=== PATIENT | female | born 1980 | race Two or more races ===

== ENCOUNTER 2020-05-26 07:30 | Outpatient (REF) | payer OTHER, SELFPAY | END 2020-05-26 07:31 | disposition home or self-care (01) | LOC: HO.MDS 07:30 | PROVIDERS: PCP Internal Medicine; Visit Provider Internal Medicine Pulmonary Disease | DX: J45.50 Severe persistent asthma, uncomplicated (principal) | CPT/HCPCS: 96372; J2357 ==

== ENCOUNTER 2020-06-19 10:03 | Emergency (ER) | payer OTHER, SELFPAY ==
[2020-06-19 11:29] VITALS: BP 111/70; PULSE 78; RESP 18; TEMP 37; O2SAT 100; BMI 30.8
--- NOTE | 2020-06-19 12:21 | XR_ITS ---
EXAMINATION: PORTABLE CHEST 1 VIEW CLINICAL INFORMATION: sob, cough . COMPARISON: 04/28/2020. TECHNIQUE: Portable frontal view of the chest was obtained. FINDINGS: The lungs are hypoexpanded. No focal infiltrate, effusion, edema, or pneumothorax. Cardiac and mediastinal silhouettes are within normal limits for technique. No acute bony abnormality seen. XR/XR chest 1V IMPRESSION: No evidence of acute disease.
--- NOTE | 2020-06-19 12:41 | ED_ITS ---
HPI - URI/Sore Throat General Chief Complaint: Upper Respiratory Symptoms Stated Complaint: headache, body ache Time Seen by Provider: 06/19/20 12:05 Source: patient and asl interpreter Mode of arrival: ambulatory Limitations: language barrier History of Present Illness HPI Narrative: 40 yo female with past medical history Of asthma here with cough, chest tightness, body aches, chills, headache since yesterday. No shortness of breath or fever. Denies sick contacts or recent travel. MD elicited complaint: cough Pertinent past history: asthma Onset (ago): day(s) (<24 hrs) Consistency: intermittent Severity: mild Able to tolerate fluids by mouth: Yes Exacerbating factors: nothing Associated symptoms: denies other symptoms Treatments prior to arrival: none Related Data Allergies Allergy/AdvReac Type Severity Reaction Status Date / Time tramadol [TRAMADOL] Allergy Mild RASH, Unverified 05/26/20 07:40 Vomitting gabapentin [GABAPENTIN] Allergy Unknown UNKNOWN, Unverified 04/15/20 17:38 rash, rash, vomiting Sulfa (Sulfonamide Allergy Unknown RASH, hives Unverified 04/15/20 17:38 Antibiotics) [SULFA (SULFONAMIDE ANTIBIOTICS)] diphtheria,pertussis AdvReac Unknown BODYACHES, Unverified 05/26/20 07:40 (acellular),te NAUSEA [TDAP] morphine [MORPHINE] AdvReac Unknown NAUSEA & Unverified 05/26/20 07:40 VOMITING, N/V, vomiting Tetanus Toxoid Adsorbed Allergy Unknown Unclear Uncoded 05/26/20 07:40 but possibly significant Review of Systems Review of Systems: Yes all other systems are reviewed and are negative Constitutional: Constitutional: Reports no additional constitutional complaints, Reports body ache(s), Reports chills, Denies fever(s), Reports headache(s) and Denies weakness Eyes: Eyes: Reports no additional eye complaints and Denies change in vision ENT: Reports system reviewed and no additional complaints, except as documented, Denies dizziness, Reports headache(s), Denies nasal congestion, Denies nasal discharge and Denies neck pain Cardiovascular: Cardiovascular: Reports no additional cardiovascular complaints, Denies chest pain, Denies leg edema and Denies dyspnea Respiratory: Respiratory: Reports no additional respiratory complaints, Reports cough and Denies dyspnea Gastrointestinal: Gastrointestinal: Reports no additional gastrointestinal complaints, Denies abdominal pain, Denies diarrhea, Denies nausea and Denies vomiting Genitourinary: Genitourinary: Reports no additional female genitourinary complaints and Denies urinary incontinence Musculoskeletal: Musculoskeletal: Reports no additional musculoskeletal complaints, Denies back pain, Denies arthralgias, Denies joint swelling, Denies neck pain, Denies numbness and Denies tingling Integumentary/Breasts: Skin/Breast: Reports system reviewed and no additional complaints, except as docu and Denies rash Neurologic: Denies Abnormal speech present, Denies dizziness, Reports headache(s), Denies numbness, Denies tingling and Denies weakness PMFSH Past Medical History Attestation statement: The following information was validated with the patient. Source: obtained from family and nursing notes reviewed Medical History Asthma Environmental allergies Social History Social History Advance Directives: No Advance Directives Information Provided: Yes Physical Exam Vital Signs: Vital Signs: Last Vital Signs Temp 98.6 F 06/19/20 11:29 Pulse 78 06/19/20 11:29 Resp 18 06/19/20 11:29 BP 111/70 06/19/20 11:29 Pulse Ox 100 06/19/20 11:29 Body Mass Index 30.8 Const: General: cooperative, healthy appearing, comfortable and no acute distress Orientation/consciousness: patient oriented x3 Limitations: no limitations HENMT: Head: Yes normal to inspection Ears: hearing grossly normal bilaterally General nose exam: Normal external nose present Face and sinus: Yes normal facial exam Mouth: Normal oral and palatal mucosa present Throat: Yes posterior oropharynx normal Eyes: General: appearance normal, both eyes and all related structures Pupils: Equal, round and reactive pupils present Neck: Neck: Yes normal visual inspection Chest: Chest palpation & inspection: normal inspection of the chest Resp: Effort & Inspection: normal respiratory effort Auscultation: clear to auscultation bilaterally Cardio: Rate: regular rate Rhythm: regular rhythm Peripheral pulses: Peripheral pulses 2+ throughout GI: Inspection: Yes normal to inspection Palpation (GI): Soft to palpation and nontender Auscultation: normal bowel sounds Back/Spine/Pelvis: Thoracic/Lumbar Spine: thoracic and lumbar spine normal to inspection Skin: General skin exam: no rashes or lesions noted Neuro: General: patient oriented x3, no focal motor deficits and normal sensation to monofilament Cranial nerves: Yes Equal, round and reactive pupils present Cognition (Neuro): normal cognition Speech: No Abnormal speech present Gait exam (Neuro): Normal gait present Motor exam (neuro): 5/5 motor strength present throughout Extrem: General: Yes normal to inspection Course Course Course Narrative: Symptoms consistent with viral syndrome. COVID-19 testing was sent. Patient is well appearing. Stable vital signs. Chest x-ray unremarkable. Speaking full sentences with clear lung sounds. Reviewed worris ome signs symptoms of when to return to the emergency department. Comfortable discharge home. MDM - URI/Sore Throat Imaging Data Chest x-ray: Attestation: I personally reviewed and interpreted this imaging study as follows: Radiologist's impression: Unremarkable Discharge Plan Discharge Clinical Impression: Viral infection Patient Disposition: Home, Self-Care Instructions: Viral Syndrome (ED) Additional Instructions: We have tested you today for COVID 19. Test results take 1-2 days and we will call you with the results negative or positive. Take tylenol or motrin if able as needed for pain or fever. Stay well hydrated with fluids like water, gatorade and/or powerade. Wash hands at home. If living with others try to self isolate if possible. If unable wear a mask around others in your home and wash hands frequently. If COVID test is positive you will need to self isolate for a total of 14 days from when your symptoms started. You may return to work sooner if testing is negative and all symptoms resolved >72 hours. You should return to the emergency department for severe shortness of breath, chest pain or fever which does not respond to both tylenol and motrin at home. Referrals: Marleny Li MD [Primary Care Provider] - 2 days Interventions: ED Discharge Assessment Last Done: 06/19/20 13:57 Discharge Date/Time: 06/19/20 13:58 Print Language: Urdu
[2020-06-19] MEDS: Acetaminophen 325 MG TABLET 975 MG PO (12:55)
== END 2020-06-19 13:58 | disposition home or self-care (01) ==
PROVIDERS: Nurse Practitioner Family; Emergency Provider Emergency Medicine; PCP Internal Medicine
DX: B34.9 Viral infection, unspecified (principal); R51.9 Headache, unspecified; Z79.899 Other long term (current) drug therapy; Z20.828 Contact with and (suspected) exposure to other viral communicable diseases
CPT/HCPCS: 71045; 99283; U0003

== ENCOUNTER 2020-06-27 17:54 | Emergency (ER) | payer OTHER, SELFPAY ==
[2020-06-27 18:30] VITALS: BP 121/74; PULSE 82; RESP 16; TEMP 36.7; O2SAT 98; BMI 30.7
--- NOTE | 2020-06-27 18:59 | ED_ITS ---
HPI - Neck Pain/Injury General Chief Complaint: Neck Pain/Injury Stated Complaint: NECK PAIN Time Seen by Provider: 06/27/20 18:42 Source: patient Mode of arrival: ambulatory History of Present Illness HPI Narrative: 40-year-old female with a past medical history asthma, fibromyalgia, recently COVID-19 negative, presented to ED complaining of full body myalgias, and neck pain radiating to head x1 week. Admits was recently seen in the ED for similar symptoms, suspected COVID-19. Denies injury/trauma or falls, vision changes at present, numbness/tingling, nausea/vomiting, fever/chills, cough. Has been taking Tylenol without relief MD complaint: neck pain Related Data Previous Rx's Medication Instructions Recorded acetaminophen 650 mg 650 mg PO Q8H PRN #40 tab 06/22/20 tablet,extended release cyclobenzaprine 5 mg PO Q8H PRN 5 Days #14 tab 06/27/20 lidocaine [Lidoderm] 1 patch TOPICAL DAILY PRN #30 ea 06/27/20 MDD remove after 12 hours naproxen 500 mg PO BID PRN 10 Days #20 tab 06/27/20 Allergies Allergy/AdvReac Type Severity Reaction Status Date / Time tramadol [TRAMADOL] Allergy Mild RASH, Unverified 05/26/20 07:40 Vomitting gabapentin [GABAPENTIN] Allergy Unknown UNKNOWN, Unverified 04/15/20 17:38 rash, rash, vomiting Sulfa (Sulfonamide Allergy Unknown RASH, hives Unverified 04/15/20 17:38 Antibiotics) [SULFA (SULFONAMIDE ANTIBIOTICS)] diphtheria,pertussis AdvReac Unknown BODYACHES, Unverified 05/26/20 07:40 (acellular),te NAUSEA [TDAP] morphine [MORPHINE] AdvReac Unknown NAUSEA & Unverified 05/26/20 07:40 VOMITING, N/V, vomiting Tetanus Toxoid Adsorbed Allergy Unknown Unclear Uncoded 05/26/20 07:40 but possibly significant Review of Systems Review of Systems: Constitutional: No Weight loss, No Fever, No Chills ENT/Mouth: + Ear Pain, No Nasal Congestion, No sore throat, No Rhinorrhea, No Swallowing Difficulty Cardiovascular: No Chest Pain, No SOB Respiratory: No Cough Gastrointestinal: No Nausea, No Vomiting, No Diarrhea, No Constipation, No Abdominal pain Musculoskeletal: + neck pain, +Myalgias, No Joint Swelling Skin: No Skin Lesions, No rash Neuro: No Weakness, No Numbness, No Paresthesias Yes all other systems are reviewed and are negative [facility] Past Medical History Attestation statement: The following information was validated with the patient. Medical History (Updated 06/27/20 @ 19:02 by CHARLINE Vyas) Asthma Environmental allergies Fibromyalgia Surgical History (Updated 06/27/20 @ 18:44 by Twyla Cortez) H/O: hysterectomy Hx of cholecystectomy Social History Social History Smoking Status: Never smoker Use of substances other than those prescribed or required for medical reasons: No Advance Directives: No Advance Directives Information Provided: No Physical Exam Vital Signs: Vital Signs: Last Vital Signs Temp 98.0 F 06/27/20 18:30 Pulse 82 06/27/20 18:30 Resp 16 06/27/20 18:30 BP 121/74 06/27/20 18:30 Pulse Ox 98 06/27/20 18:30 Body Mass Index 30.7 Const: General: cooperative and healthy appearing Orientation/consciousness: patient oriented x3 Limitations: no limitations HENMT: Head: Yes normal to inspection Ears: hearing grossly normal bilaterally and TM's normal bilaterally General nose exam: Normal external nose present Face and sinus: Yes normal facial exam Mouth: Normal oral and palatal mucosa present Throat: Yes posterior oropharynx normal Eyes: General: appearance normal, both eyes and all related structures EOM: EOMs intact bilaterally Neck: Other: No midline cervical spinous tenderness. + bilateral upper paraspinal MSK tenderness and right trapezius muscle ttp Neck: Yes normal visual inspection, Yes full ROM, Yes no meningeal signs and Yes trachea midline Chest: Chest palpation & inspection: normal inspection of the chest Resp: Effort & Inspection: normal respiratory effort Cardio: Rate: regular rate Skin: Rashes: no rashes Wounds: no wounds Neuro: General: patient oriented x3 and no meningeal signs Gait exam (Neuro): Normal gait present Extrem: General: Yes normal to inspection MDM - Neck Pain/Injury MDM Narrative Medical decision making narrative: On exam VSS, NAD/well-appearing, no midline spinous tenderness. Concern for viral syndrome/COVID-19 vs MSK pain. Low concern for fracture or dislocation Discharge Plan Discharge Clinical Impression: Strain of neck, Myalgia Patient Disposition: Home, Self-Care Instructions: Musculoskeletal Pain (ED) Additional Instructions: Your pain is likely musculoskeletal Flexeril is a muscle relaxer, take at night as it makes you drowsy, do not drive, drink alcohol, or operate machinery while taking it Naproxen as an anti-inflammatory / pain medication, take with food Lidoderm patches are numbing patches, apply to painful area In addition take Tylenol at home If symptoms persist or worsen, pain becomes unbearable, you developed urinary retention or incontinence, or weakness return to the ED Based on your symptoms and history we have sent a COVID-19. Although your RESULT IS PENDING at this time. RESULTS should return within 72 hours. At this time you will be contacted with either NEGATIVE OR POSITIVE results. -Please wait until we contact you for your results. At this time you will be okay for discharge. Please plan for self quarantine for up to 14 days. Do not expose yourself to others. You may not go to work. If testing does come back negative you may return to activities as long as you are no longer having any symptoms for at least 3 days. Please continue to follow cold instructions and wash your hands frequently. You may take Tylenol as directed on the bottle for pain or fever. Patient seen in the emergency department on 01/23/2020 and should be excused from work until negative test results AND until 72 hours without any symptoms AND at least 10 days have passed since symptoms first appeared or since last exposure to COVID-19 positive patient CDC Guidelines for home isolation: - Stay away from others - WEAR A MASK if you are sick AND STAY HOME - Cover your mouth and nose with a tissue when you cough or sneeze. Dispose of tissues in a lined trash can and wash your hands immediately with soap and water for at least 20 seconds. If soap and water are not available, clean hands with alcohol-based hand management internship that contains at least 60% alcohol. - Clean your hands often with soap and water for at least 20 seconds - Avoid touching your eyes, nose and mouth with unwashed hands - Do not share dishes, drinking glasses, cups, eating utensils, towels, or bedding with other people in your home. After using these items, wash them thoroughly with soap and water or put in the cancer program coordinator. - Clean high-touch surfaces in your isolation area ( sick room and bathroom) every day; let a caregiver clean and disinfect high-touch surfaces in other areas of the home. Clean the area or item with soap and water or another detergent if it is dirty. Then, use a household disinfectant. - Limit contact with pets and animals: If you must care for a pet, wash your hands before and after interacting with them) Prescriptions: New lidocaine [Lidoderm] 5 % adhesive patch,medicated 1 patch topical DAILY MDD remove after 12 hours PRN (Reason: pain) Qty: 30 RF: 0 naproxen 500 mg tablet 500 mg PO BID PRN (Reason: pain) 10 Days Qty: 20 RF: 0 cyclobenzaprine 5 mg tablet 5 mg PO Q8H PRN (Reason: pain (scale score 7-10)) 5 Days Qty: 14 RF: 0 No Action acetaminophen [Arthritis Pain Relief (acetam)] 650 mg tablet extended release 650 mg PO Q8H PRN (Reason: pain) Qty: 40 RF: 0 Referrals: Marleny Li MD [Primary Care Provider] - 3 days Stand Alone Forms: Work/School Release
== END 2020-06-27 19:30 | disposition home or self-care (01) ==
PROVIDERS: Physician Assistant; Emergency Provider Emergency Medicine; PCP Internal Medicine
DX: M54.2 Cervicalgia (principal); M79.10 Myalgia, unspecified site; Z79.899 Other long term (current) drug therapy; Z20.828 Contact with and (suspected) exposure to other viral communicable diseases
CPT/HCPCS: 99283; U0003

== ENCOUNTER 2020-07-05 | Outpatient (REF) | payer OTHER, SELFPAY | END 2020-07-05 00:01 | disposition home or self-care (01) | LOC: HO.MDS | PROVIDERS: PCP Internal Medicine; Visit Provider Internal Medicine Pulmonary Disease | DX: J45.50 Severe persistent asthma, uncomplicated (principal) | CPT/HCPCS: 96372; J2357 ==

== ENCOUNTER → 2020-07-20 10:11 | Outpatient (REF) | payer OTHER, SELFPAY ==
--- NOTE | 2020-07-20 10:30 | CA_ITS ---
Transthoracic Echocardiogram Patient (Last, First, Middle): Lien Del Angel, Gender: Female Date of : 1980 Age: 40 Procedure Date: 07/20/2020 Procedure Type: Transthoracic Echocardiogram Location: OP Height: 165.1 cm Weight: 82.56 kg BSA: 1.90 m2 Heart Rate: bpm BP: 100 / 63 mmHg Head Waiter: ROQUE Referring MD: Venancio Patel DO Chief Relay Tester: Ji Jaramillo MD Symptoms: J45.30 MILD PER ASTHMA PULMONARY PRESSURE SOB CHEST PAIN Study Quality: Fair ECG Rhythm: Sinus Conclusions: - Essentially normal study Findings Left Ventricle Normal left ventricular size, thickness, and systolic function. The visually estimated ejection fraction is between 60-65%. Diastolic function is normal for age. Right Ventricle Normal right ventricular cavity size and systolic function. Atria Both atria are likely dilated. Interatrial shunt cannot be excluded. Aortic Valve The aortic valve structure and function is likely normal. There is no aortic valve stenosis. There is no aortic valve regurgitation. Mitral Valve Normal mitral valve structure and function. There is trace mitral valve regurgitation. There is no mitral valve stenosis. Pulmonic Valve The pulmonic valve was not well visualized. Tricuspid Valve Likely normal tricuspid valve structure and function. There is trace tricuspid valve regurgitation. The right ventricular systolic pressure is normal. The right ventricular systolic pressure is 23 mmHg. Normal right atrial pressure. There is no evidence of pulmonary hypertension. Great Vessels All visible segments of the aorta are normal in size. Venous The inferior vena cava is normal in size and collapses greater than 50% with inspiration. Pericardium/Pleural There is no evidence of pericardial effusion. Prior Study Comparison No significant change compared to prior study dated: 06/26/2018. Measurements M-Mode Liner Measurements Normals - Women/Men LVIDd: 3.81 3.9-5.3/4.2-5.9 cm LVIDd Index: 2.01 1.9-3.2 cm/m2 LVIDs: 2.54 2.0-3.8 cm M-Mode Volumes LV EDV: 62.30 LV ESV: 23.20 2D Linear Measurements IVSd: 1.03 0.6-0.9/0.6-1.0 cm LVIDd: 4.04 3.9-5.3/4.2-5.9 cm LVIDd Index: 2.13 2.4-3.2/2.2-3.1 cm/m2 LVIDs: 2.77 2.0-3.6 cm LVPWd: 1.07 0.7-1.1 cm Ao Root: 2.40 2.1-3.5 cm LA Diam: 2.90 2.7-3.8/3.0-4.0 cm LAIDs Index: 1.53 1.5-2.3 cm/m2 LV Mass: 172.16 67-162/88-224 g LV Mass Index: 90.61 43-95/49-115 g/m2 LVOT Diam: 2.10 3.0+(-)1.3 cm 2D Systolic Function EF 4C: 50.40 >55% EF 2C: 63.00 >55% EF BiP: 58.00 >55% M-Mode Systolic Function FS: 33.30 27-47/25-43% LVEF: 62.80 >55% Mitral Valve MV Pk E: 0.71 MV PK A: 0.71 MV Decel Time: 232.00 E/A: 1.00 E'Lateral: 14.20 E'Medial: 6.87 E/E' Med: 10.30 E/E' Lat: 5.00 PHT: 68.00 MVA PHT: 3.24 Decel [place]: 3.05 Aortic Valve AoV Pk [place]: 1.41 AoV Pk Grad: 8.00 LVOT LVOT Pk [place]: 1.00 LVOT Mn [place]: 0.69 LVOT VTI: 0.20 LVOT Pk Grad: 4.00 LVOT Mn Grad: 2.00 LVOT Diam: 2.10 LVOT Area: 3.46 Diastolic Function MV Pk E: 0.71 MV Pk A: 0.71 E/A: 1.00 E'Medial: 6.87 E/E' Med: 10.30 E' Laterial: 14.20 E/E' Lat: 5.00 Tricuspid Valve TR Pk [place]: 2.27 TR Pk Grad: 20.68 RA Press: 3.00 RVSP: 23.00 Great Vessels Aorta Ao Root-2D: 2.40 2.0-3.7 cm Ao Asc: 3.00 2.1-3.4 cm Updated in Other Vendor System with Status of Final Ji Jaramillo MD electronically signed on 07/21/2020 1:35:45 PM with status of Final
== END ==
LOC: HO.CARD 10:11
PROVIDERS: PCP Internal Medicine; Visit Provider Hospitalist
DX: J45.30 Mild persistent asthma, uncomplicated (principal)
CPT/HCPCS: 93306

== ENCOUNTER 2020-07-29 16:15 | Outpatient (REF) | payer OTHER, SELFPAY | END 2020-07-29 16:16 | disposition home or self-care (01) | LOC: HO.LAB 16:15 | PROVIDERS: Visit Provider Internal Medicine | DX: Z20.828 Contact with and (suspected) exposure to other viral communicable diseases (principal) | CPT/HCPCS: C9803; U0003 ==

== ENCOUNTER 2020-08-23 07:18 | Outpatient (REF) | payer OTHER, SELFPAY | END 2020-08-23 07:19 | disposition home or self-care (01) | LOC: HO.MDS 07:18 | PROVIDERS: PCP Internal Medicine; Visit Provider Internal Medicine Pulmonary Disease | DX: J45.50 Severe persistent asthma, uncomplicated (principal) | CPT/HCPCS: 96372; J2357 ==

== ENCOUNTER 2020-09-20 07:16 | Outpatient (REF) | payer OTHER, SELFPAY | END 2020-09-20 07:17 | disposition home or self-care (01) | LOC: HO.MDS 07:16 | PROVIDERS: PCP Internal Medicine; Visit Provider Internal Medicine Pulmonary Disease | DX: J45.50 Severe persistent asthma, uncomplicated (principal) | CPT/HCPCS: 96372; J2357 ==

== ENCOUNTER 2020-10-18 07:17 | Outpatient (REF) | payer OTHER, SELFPAY | END 2020-10-18 07:18 | disposition home or self-care (01) | LOC: HO.MDS 07:17 | PROVIDERS: PCP Internal Medicine; Visit Provider Internal Medicine Pulmonary Disease | DX: J45.50 Severe persistent asthma, uncomplicated (principal) | CPT/HCPCS: 96372; J2357 ==

== ENCOUNTER 2020-11-16 07:09 | Outpatient (REF) | payer OTHER, SELFPAY | END 2020-11-16 07:10 | disposition home or self-care (01) | LOC: HO.MDS 07:09 | PROVIDERS: PCP Internal Medicine; Visit Provider Internal Medicine Pulmonary Disease | DX: J45.50 Severe persistent asthma, uncomplicated (principal) | CPT/HCPCS: 96372; J2357 ==

== ENCOUNTER 2020-11-24 10:30 | Outpatient (REF) | payer OTHER, SELFPAY ==
[2020-11-24 13:04] LABS: MANUAL DIFF FLAG NO
[2020-11-24 13:10] LABS: Basophils Absolute Auto 0.1 X10*3/uL (0.0-0.2); Basophils Percent Auto 0.8 % (0-2); Eosinophils Absolute Auto 0.1 X10*3/uL (0.0-0.4); Eosinophils Percent Auto 1.1 % (0-4); Hematocrit 45.7 % (37-47); Hemoglobin 14.8 g/dl (12.0-16.0); Imm Gran Abs Auto 0.01 X10*3/uL (0.00-0.03); Imm Gran Pct Auto 0.2 % (0.0-0.4); Lymphocytes Absolute Auto 2.1 X10*3/uL (1.2-4.9); Lymphocytes Percent Auto 31.9 % (20-40); Mean Corpuscular HGB Conc 32.4 g/dl (31.0-35.0); Mean Corpuscular Hemoglobin 29.5 pg (27.0-33.0); Mean Platelet Volume 10.3 fL (9.4-12.3); Monocytes Absolute Auto 0.5 X10*3/uL (0.1-1.2); Monocytes Percent Auto 7.3 % (2-11); Neutrophils Absolute Auto 3.9 X10*3/uL (2.0-8.3); Neutrophils Percent Auto 58.7 % (45-73); Platelet Count 287 X10*3/uL (160-400); Red Blood Count 5.02 X10*6/uL (4.20-5.50); Red Cell Distribution Width 13.3 % (11.0-16.0); White Blood Count 6.6 X10*3/uL (4.8-10.8)
== END 2020-11-24 10:31 | disposition home or self-care (01) ==
LOC: HO.LAB 10:30
PROVIDERS: PCP Internal Medicine; Visit Provider Internal Medicine Pulmonary Disease
DX: J45.50 Severe persistent asthma, uncomplicated (principal); R06.00 Dyspnea, unspecified; Z91.09 Other allergy status, other than to drugs and biological substances; Z79.899 Other long term (current) drug therapy
CPT/HCPCS: 36415; 82785; 85025; 86003; 99212

== ENCOUNTER 2020-12-13 07:25 | Outpatient (REF) | payer OTHER, SELFPAY | END 2020-12-13 07:26 | disposition home or self-care (01) | LOC: HO.MDS 07:25 | PROVIDERS: PCP Internal Medicine; Visit Provider Internal Medicine Pulmonary Disease | DX: J45.50 Severe persistent asthma, uncomplicated (principal) | CPT/HCPCS: 96372; J2357 ==

== ENCOUNTER 2020-12-21 11:33 | Outpatient (REF) | payer OTHER, SELFPAY ==
[2020-12-21 14:28] LABS: Alanine Aminotransferase 56 U/L (0-31); Anion Gap 15 (12-20); Aspartate Amino Transferase 36 U/L (5-31); Blood Urea Nitrogen 9 mg/dL (9-16); Calcium 9.3 mg/dL (8.4-10.2); Carbon Dioxide 23 mmol/L (22-29); Chloride 103 mmol/L (96-108); Cholesterol 197 mg/dL; Estimated Glomerular Filt Rate > 60; Glucose Fasting 87 mg/dL (60-99); HDL Cholesterol 39 mg/dL; LDL Cholesterol Calculated 131 mg/dl; Potassium 4.2 mmol/L (3.3-5.1); Sodium 137 mmol/L (135-145); Triglycerides 137 mg/dL
[2020-12-22 11:55] LABS: Immunoglobulin E 248 kU/L (<OR=114)
== END 2020-12-21 11:34 | disposition home or self-care (01) ==
LOC: HO.HMGCLDS 11:33
PROVIDERS: Internal Medicine Pulmonary Disease; PCP Internal Medicine; Visit Provider Internal Medicine
DX: Z00.01 Encounter for general adult medical examination with abnormal findings (principal); E66.9 Obesity, unspecified; I10 Essential (primary) hypertension; J45.50 Severe persistent asthma, uncomplicated
CPT/HCPCS: 36415; 80048; 80061; 82785; 84450; 84460

== ENCOUNTER 2020-12-29 07:19 | Outpatient (REF) | payer OTHER, SELFPAY | END 2020-12-29 07:20 | disposition home or self-care (01) | LOC: HO.MDS 07:19 | PROVIDERS: PCP Internal Medicine; Visit Provider Internal Medicine Pulmonary Disease | DX: J45.50 Severe persistent asthma, uncomplicated (principal) | CPT/HCPCS: 96372; J2357 ==

== ENCOUNTER 2021-01-12 07:14 | Outpatient (REF) | payer OTHER, SELFPAY | END 2021-01-12 07:15 | disposition home or self-care (01) | LOC: HO.MDS 07:14 | PROVIDERS: PCP Internal Medicine; Visit Provider Internal Medicine Pulmonary Disease | DX: J45.50 Severe persistent asthma, uncomplicated (principal) | CPT/HCPCS: 96372; J2357 ==

== ENCOUNTER → 2021-01-19 12:43 | Outpatient (REF) | payer OTHER, SELFPAY ==
--- NOTE | 2021-01-19 12:45 | CA_ITS ---
Transthoracic Echocardiogram Patient (Last, First, Middle): Lien Del Angel, Gender: Female Date of : 1980 Age: 40 Procedure Date: 01/19/2021 Procedure Type: Transthoracic Echocardiogram Location: OP Height: 165.1 cm Weight: 85.73 kg BSA: 1.93 m2 Heart Rate: bpm BP: 118 / 70 mmHg Pediatric Critical Care Nurse: YR/CP Referring MD: Steve Chan MD [place] Supervisor: Ji Jaramillo MD Symptoms: R06.00 - Dyspnea, unspecified Study Quality: Good ECG Rhythm: Sinus Conclusions: - 1. Normal LV systolic and diastolic function 2. Mild mitral regurgitation 3. Normal RV systolic pressure 4. No pericardial effusion Findings Left Ventricle Normal left ventricular size, thickness, and systolic function. The visually estimated ejection fraction is between 60-65%. Diastolic function is normal for age. Right Ventricle Normal right ventricular cavity size and systolic function. Atria Both atria are normal in size. Aortic Valve Normal aortic valve structure and function. There is no aortic valve stenosis. There is no aortic valve regurgitation. Mitral Valve Normal mitral valve structure and function. There is mild mitral valve regurgitation. There is no mitral valve stenosis. Pulmonic Valve The pulmonic valve is likely normal. There is trace pulmonic valve regurgitation. Tricuspid Valve Normal tricuspid valve structure. There is trace tricuspid valve regurgitation. The right ventricular systolic pressure is normal. The right ventricular systolic pressure is 23 mmHg. Normal right atrial pressure. There is no evidence of pulmonary hypertension. Great Vessels All visible segments of the aorta are normal in size. The pulmonary artery was not well visualized. Venous The inferior vena cava is normal in size and collapses greater than 50% with inspiration. Pericardium/Pleural There is no evidence of pericardial effusion. Prior Study Comparison No significant change compared to prior study dated: 07/20/2020. Measurements 2D Linear Measurements IVSd: 1.04 0.6-0.9/0.6-1.0 cm LVIDd: 3.35 3.9-5.3/4.2-5.9 cm LVIDd Index: 1.74 2.4-3.2/2.2-3.1 cm/m2 LVIDs: 2.40 2.0-3.6 cm LVPWd: 1.06 0.7-1.1 cm Ao Root: 2.70 2.1-3.5 cm LA Diam: 2.70 2.7-3.8/3.0-4.0 cm LAIDs Index: 1.40 1.5-2.3 cm/m2 LV Mass: 129.25 67-162/88-224 g LV Mass Index: 66.97 43-95/49-115 g/m2 LVOT Diam: 1.90 3.0+(-)1.3 cm Mitral Valve MV Pk E: 0.90 MV PK A: 0.73 MV Decel Time: 221.00 E/A: 1.20 E'Lateral: 11.70 E'Medial: 6.53 E/E' Med: 13.70 E/E' Lat: 7.60 PHT: 65.00 MVA PHT: 3.38 Decel [place]: 4.05 Aortic Valve AoV Pk Delroy: 1.67 AoV Mn [place]: 0.94 AoV VTI: 0.24 AoV Pk Grad: 11.00 Aov Mn Grad: 4.00 LISETH Cont.VTI: 2.07 LVOT LVOT Pk [place]roy: 0.92 LVOT Mn [place]: 0.64 LVOT VTI: 0.18 LVOT Pk Grad: 3.00 LVOT Mn Grad: 2.00 LVOT Diam: 1.90 LVOT Area: 2.84 Diastolic Function MV Pk E: 0.90 MV Pk A: 0.73 E/A: 1.20 E'Medial: 6.53 E/E' Med: 13.70 E' Laterial: 11.70 E/E' Lat: 7.60 Tricuspid Valve TR Pk [place]: 2.23 TR Pk Grad: 20.00 RA Press: 3.00 RVSP: 23.00 Great Vessels Aorta Ao Root-2D: 2.70 2.0-3.7 cm Ao Asc: 3.10 2.1-3.4 cm Ao Arch: 2.50 Updated in Other Vendor System with Status of Final Ji Jaramillo MD electronically signed on 01/19/2021 5:30:34 PM with status of Final
== END ==
LOC: HO.CARD 12:43
PROVIDERS: Visit Provider Internal Medicine Pulmonary Disease
DX: R06.00 Dyspnea, unspecified (principal)
CPT/HCPCS: 93306

== ENCOUNTER 2021-01-26 07:17 | Outpatient (REF) | payer OTHER, SELFPAY | END 2021-01-26 07:18 | disposition home or self-care (01) | LOC: HO.MDS 07:17 | PROVIDERS: PCP Internal Medicine; Visit Provider Internal Medicine Pulmonary Disease | DX: J45.50 Severe persistent asthma, uncomplicated (principal) | CPT/HCPCS: 96372; J2357 ==

== ENCOUNTER 2021-02-09 07:21 | Outpatient (REF) | payer OTHER, SELFPAY | END 2021-02-09 07:22 | disposition home or self-care (01) | LOC: HO.MDS 07:21 | PROVIDERS: PCP Internal Medicine; Visit Provider Internal Medicine Pulmonary Disease | DX: J45.50 Severe persistent asthma, uncomplicated (principal) | CPT/HCPCS: 96372; J2357 ==

== ENCOUNTER → 2021-02-21 14:21 | Outpatient (BNVA) | payer OTHER, SELFPAY | PROVIDERS: PCP Internal Medicine; Referring Provider Internal Medicine; Visit Provider Internal Medicine | DX: R00.0 Tachycardia, unspecified (principal); J45.50 Severe persistent asthma, uncomplicated; R53.81 Other malaise | CPT/HCPCS: 93005; 99212 ==

== ENCOUNTER 2021-02-23 07:27 | Outpatient (REF) | payer OTHER, SELFPAY | END 2021-02-23 07:28 | disposition home or self-care (01) | LOC: HO.MDS 07:27 | PROVIDERS: PCP Internal Medicine; Visit Provider Internal Medicine Pulmonary Disease | DX: J45.50 Severe persistent asthma, uncomplicated (principal) | CPT/HCPCS: 96372; 99212; J2357 ==

== ENCOUNTER 2021-02-24 13:17 | Emergency (ER) | payer OTHER, SELFPAY ==
--- NOTE | ~2021-02-24 | XR_ITS ---
EXAMINATION: XR CHEST CLINICAL INFORMATION: Productive cough COMPARISON: June 19, 2020 TECHNIQUE: 2 views of the chest were obtained. FINDINGS: No significant abnormality is noted involving the heart, lungs, mediastinum, bony thorax or soft tissues. XR/XR chest 2V IMPRESSION: No acute disease.
[2021-02-24 13:30] VITALS: BP 106/68; PULSE 85; RESP 18; TEMP 36.5; O2SAT 97; BMI 30.2
[2021-02-24 14:00] LABS: COVID-19 Test Negative (Negative); IDNOW Serial# 9DD0AD1C
--- NOTE | 2021-02-24 16:37 | ECG_ITS ---
Test Reason : DIFFICULTY BREATHING Blood Pressure : / mmHG Vent. Rate : 067 BPM Atrial Rate : 067 BPM P-R Int : 152 ms QRS Dur : 082 ms QT Int : 416 ms P-R-T Axes : 053 003 002 degrees QTc Int : 439 ms Normal sinus rhythm Minimal voltage criteria for LVH, may be normal variant Borderline ECG When compared with ECG of 18-JUL-2019 22:36, No significant change was found Referred By: Theodora Beltrán Electronically Signed By:VITO WEAVER
[2021-02-24 16:53] VITALS: BP 102/67; PULSE 63; RESP 18; O2SAT 99
[2021-02-24 16:55] LABS: MANUAL DIFF FLAG NO
[2021-02-24 16:56] LABS: Basophils Absolute Auto 0.1 X10*3/uL (0.0-0.2); Basophils Percent Auto 0.6 % (0-2); Eosinophils Absolute Auto 0.1 X10*3/uL (0.0-0.4); Eosinophils Percent Auto 1.1 % (0-4); Hematocrit 46.9 % (37-47); Hemoglobin 15.4 g/dl (12.0-16.0); Imm Gran Abs Auto 0.01 X10*3/uL (0.00-0.03); Imm Gran Pct Auto 0.1 % (0.0-0.4); Lymphocytes Percent Auto 36.4 % (20-40); Mean Corpuscular HGB Conc 32.8 g/dl (31.0-35.0); Mean Corpuscular Hemoglobin 29.2 pg (27.0-33.0); Mean Platelet Volume 9.6 fL (9.4-12.3); Monocytes Absolute Auto 0.6 X10*3/uL (0.1-1.2); Monocytes Percent Auto 6.8 % (2-11); Neutrophils Absolute Auto 4.5 X10*3/uL (2.0-8.3); Platelet Count 289 X10*3/uL (160-400); Red Blood Count 5.27 X10*6/uL (4.20-5.50); Red Cell Distribution Width 13.2 % (11.0-16.0); White Blood Count 8.1 X10*3/uL (4.8-10.8)
[2021-02-24 17:09] LABS: D Dimer < 200 NG/ML
[2021-02-24 17:25] LABS: Alanine Aminotransferase 81 U/L (0-31); Albumin Level 4.7 g/dL (3.5-5.0); Alkaline Phosphatase 85 U/L (39-117); Anion Gap 11 (12-20); Aspartate Amino Transferase 53 U/L (5-31); Bilirubin Total 0.9 mg/dL (0.0-1.0); Blood Urea Nitrogen 10 mg/dL (9-16); Calcium 9.8 mg/dL (8.4-10.2); Carbon Dioxide 30 mmol/L (22-29); Chloride 104 mmol/L (96-108); Creatinine Clr Calc Pharmacy 100.1; Estimated Glomerular Filt Rate > 60; Glucose Random 92 mg/dL (60-115); Magnesium 2.2 mg/dL (1.6-2.6); Sodium 141 mmol/L (135-145); Total Protein 8.2 g/dL (6.5-8.0)
[2021-02-24 17:30] LABS: B Type Natriuretic Peptide < 10 pg/mL (<100)
--- NOTE | 2021-02-24 18:04 | ED.ASTHMA ---
HPI - Asthma General Chief Complaint: Upper Respiratory Symptoms Stated Complaint: cough high blood pressure Time Seen by Provider: 02/24/21 16:20 Source: patient Mode of arrival: ambulatory Limitations: language barrier (Barbadian-speaking) History of Present Illness HPI Narrative: 40-year-old female with a past medical history of asthma, environmental allergies, GERD, obesity, fibromyalgia who is a nonsmoker being followed by Dr. sonny elkins for her severe persistent allergic asthma presenting to the ED with complaints of productive cough with shortness of breath and tachycardia for the past few days worse today. She is also concerned due to she just lost her voice today. She wears her watch which reveals her pulse and she reports occasionally her heart rate goes up to 160s. She was evaluated by hose mender this week and everything was normal per the patient and was told that most likely this was related to her asthma. Then she followed up with sole stapler welt and was told to come to the ER for further evaluation treatment. She denies any fevers, dizziness, headaches, chest pain, abdominal pain, lower extremity edema, calf tenderness or any other symptoms complaints or concerns at this time. Is PERC negative she denies any control, recent travel on a long plane/train or car ride, any estrogen uses, any immobilization, history of cancer or recent surgery. MD complaint: asthma attack , shortness of breath and wheezing Onset (ago): day(s) (Five days worse today) Severity: severe and worse than usual Context: allergen exposure Associated symptoms: productive cough and other (Palpitations) Asthma History: followed by specialist (Water Purification Chemist) Treatments Prior to Arrival: other (She has tried Flovent 220 Serevent, Spiriva, Singulair, and albuterol MDI and nebs and Xolair) Related Data Home Medications Medication Instructions Recorded Confirmed duloxetine 60 mg capsule,delayed 60 mg PO DAILY 07/01/20 02/21/21 release montelukast 10 mg tablet 10 mg PO DAILY 07/01/20 02/21/21 famotidine 40 mg tablet 40 mg PO DAILY 11/17/20 02/21/21 triamcinolone acetonide 55 mcg INTRANASAL 11/17/20 02/21/21 nasal spray aerosol Previous Rx's Medication Instructions Recorded cyclobenzaprine 5 mg tablet 5 mg PO Q8H PRN 5 Days #14 tab 06/27/20 albuterol sulfate 90 mcg/actuation 2 puff INHALATION Q4-6H PRN #8.5 g 09/16/20 aerosol inhaler (ProAir HFA) omalizumab 150 mg/mL subcutaneous 225 mg SUBCUT Q2W 28 Days #3 ml 11/29/20 syringe (Xolair) acetaminophen 650 mg 650 mg PO Q8H PRN #40 tab 12/21/20 tablet,extended release (Arthritis Pain Relief (acetaminophen) ER) lidocaine 5 % topical patch 1 patch TOPICAL DAILY PRN #30 ea 12/21/20 (Lidoderm) MDD remove after 12 hours ipratropium 0.5 mg-albuterol 3 mg 3 ml INHALATION Q6H PRN #180 ml 02/14/21 (2.5 mg base)/3 mL nebulization soln prednisone 20 mg tablet 20 mg PO DAILY 9 Days #18 tab 02/22/21 fluticasone fur. 100 mcg-umeclid 1 inh INHALATION DAILY 30 Days #1 02/23/21 62.5 mcg-vilant 25 mcg ea inhalat.powder (Trelegy Ellipta) albuterol sulfate 0.63 mg/3 mL 0.63 mg INHALATION QID PRN #75 ml 02/24/21 solution for nebulization albuterol sulfate 90 mcg/actuation 1 inh INHALATION QID PRN #8.5 g 02/24/21 aerosol inhaler azithromycin 250 mg tablet See Rx Instructions .ROUTE 02/24/21 .COMPLEX #6 tab codeine 10 mg-guaifenesin 100 mg/5 5 ml PO Q6H PRN #120 ml 02/24/21 mL oral liquid (Guaifenesin AC) loratadine 10 mg tablet (Claritin) 10 mg PO DAILY PRN #10 tab 02/24/21 prednisone 20 mg tablet 60 mg PO DAILY 5 Days #15 tab 02/24/21 Allergies Allergy/AdvReac Type Severity Reaction Status Date / Time tramadol [TRAMADOL] Allergy Mild RASH, Verified 02/22/21 15:34 Vomitting gabapentin [GABAPENTIN] Allergy Unknown UNKNOWN, Verified 02/22/21 15:34 rash, rash, vomiting Sulfa (Sulfonamide Allergy Unknown RASH, hives Verified 02/22/21 15:34 Antibiotics) [SULFA (SULFONAMIDE ANTIBIOTICS)] diphtheria,pertussis AdvReac Unknown BODYACHES, Verified 02/21/21 14:49 (acellular),te NAUSEA [TDAP] morphine [MORPHINE] AdvReac Unknown NAUSEA & Verified 02/21/21 14:49 VOMITING, N/V, vomiting Review of Systems Review of Systems: Constitutional : denies med noncompliance, no history of PE or DVT, denies recent travel, No Fever, No Chills ENT/Mouth : Positive Hoarseness, No sore throat, No Rhinorrhea Eyes: No Redness, No Discharge, No Vision Changes Cardiovascular : Positive shortness of breath, positive dyspnea on exertion, No Chest Pain, No Edema, no pleurisy, Respiratory : Positive cough with Sputum, no stridor, no hemoptysis, Gastrointestinal : No Nausea, No Vomiting, No Diarrhea, No abdominal Pain Genitourinary : No Dysuria, No Hematuria Musculoskeletal : No joint pain, No Myalgias Extremities: no extremity swelling /pain Skin : No rash, no itching, no swelling Neuro : No Weakness, No Numbness, No Headache Psych : No anxiety, depression Heme/Lymph: No Bruising, No Bleeding Endocrine : No Polyuria, No Polydipsia Yes all other systems are reviewed and are negative [facility] Past Medical History Attestation statement: The following information was validated with the patient. Medical History Acalculous cholecystitis Asthma Environmental allergies Fibromyalgia Fibromyalgia Gastritis GERD (gastroesophageal reflux disease) Obesity (BMI 30.0-34.9) Surgical History H/O: hysterectomy History of colonoscopy Hx of cholecystectomy Family History Family History Father No problems noted. Mother HTN (hypertension) Maternal Aunt Breast cancer Brother No problems noted. Sister No problems noted. Son No problems noted. Son No problems noted. Son No problems noted. Social History Social History Alcohol intake: never Patient Tobacco Use Status: Never used Tobacco Advance Directives: No Advance Directives Information Provided: No Physical Exam Vital Signs: Vital Signs: Last Vital Signs Temp 98.5 F 02/24/21 19:41 Pulse 72 02/24/21 19:41 Resp 12 02/24/21 19:41 BP 101/68 02/24/21 19:41 Pulse Ox 98 02/24/21 19:41 Body Mass Index 30.2 vital signs have been reviewed as normal and appeared to be correct. Blood pressure normal. Heart rate normal. Respiration rate normal. Temperature normal. Oxygen saturation normal. Appearance: Alert. Oriented X3. No acute distress. Head: Normal external exam. Normocephalic. Atraumatic. Eyes: PERRLA. EOMI. Conjunctiva and sclera normal. Eyelids normal. ENT: Pharynx normal. Uvula midline. Moist mucous membranes. No trismus noted. No drooling noted. No muffled voice noted. Neck: Normal inspection. Neck supple. FROM. No adenopathy. Thyroid Normal. No meningeal signs. No neck mass noted. CVS: Normal heart rate and rhythm. Heart sound normal. Pulses normal throughout. No murmurs/rales/gallops. Respiratory: No respiratory distress. Painless inspiration. Breath sounds normal. No wheezes/rales/rhonchi noted. Chest nontender. No accessory muscle usage noted or decreased air movement noted. Back: Full range of motion noted. No rashes/lesion/induration/fluctuance or signs of infection noted. Skin: Skin warm and dry. Normal skin color. Normal skin turgor. No rashes/lesions/lacerations noted. Extremities: No lower extremity edema. No calf tenderness is noted. exhibit normal range of motion. Extremities nontender. Neuro: Oriented X 3. No motor deficit. No sensory deficit. Reflexes normal. Normal steady gait. No focal neuro deficits noted. Vascular: + radial pulses/+ 2 distal pedal pulses/+2 dorsalis pedis b/l. Normal cap refill. No cyanosis noted to upper extremity nails and lower extremity toes nails. Course Course Course Narrative: 16:40pm - 40-year-old female who is a nonsmoker being followed by pulmonology and Cardiology for severe persistent allergic asthma with multiple breakthrough symptoms. Patient has been using Flovent 220 Serevent, Spiriva, Singulair, and albuterol MDI and nebs.? She also has been started on Xolair with significant improvement in her symptoms until to days prior when she developed an acute asthma exacerbation.? She has been seen at an urgent care clinic in has been started on prednisone taper which she is on day 3. Now she is complaining of a productive cough with hoarseness, dyspnea on exertion and palpitations for the past 5 days. Plan: Labs, chest x-ray, EKG, COVID swab, UA, respiratory panel then re-evaluate. Reevaluation(s) Reevaluation #1: - all labs reviewed and within normal limits. Negative D-dimer. Negative BNP. COVID swab is negative. EKG is normal sinus rhythm with ventricular rate of 67 with minimal voltage criteria for LVH may be normal variant no acute ischemic change are noted. Chest x-ray within normal limits no acute processes are noted. - therefore at this time will DC home with antibiotics and symptomatic treatment more steroids and instructions to follow-up with her sole stapler welt and to document when she is noticing that her asthma exacerbations come on. Patient understands agrees with this plan. Time: 18:32 [facility] - Asthma Medical Records Attestation: I reviewed the patient's medical records. Lab Data Attestation: I reviewed the patient's lab results. Result diagrams: 02/24/21 16:50 02/24/21 16:50 Labs: Lab Results 02/24/21 02/24/21 02/24/21 Range/Units 13:37 16:50 16:50 WBC 8.1 (4.8-10.8) X10*3/uL RBC 5.27 (4.20-5.50) X10*6/uL Hgb 15.4 (12.0-16.0) g/dl Hct 46.9 (37-47) % MCV 89.0 (80-98) fL MCH 29.2 (27.0-33.0) pg MCHC 32.8 (31.0-35.0) g/dl RDW 13.2 (11.0-16.0) % Plt Count 289 (160-400) X10*3/uL MPV 9.6 (9.4-12.3) fL Immature Gran % (Auto) 0.1 (0.0-0.4) % Neut % (Auto) 55.0 (45-73) % Lymph % (Auto) 36.4 (20-40) % [place] % (Auto) 6.8 (2-11) % Eos % (Auto) 1.1 (0-4) % Baso % (Auto) 0.6 (0-2) % Lymph # (Auto) 3.0 (1.2-4.9) X10*3/uL [place] # (Auto) 0.6 (0.1-1.2) X10*3/uL Eos # (Auto) 0.1 (0.0-0.4) X10*3/uL Baso # (Auto) 0.1 (0.0-0.2) X10*3/uL Abs Immat Gran (auto) 0.01 (0.00-0.03) X10*3/uL Absolute Neuts (auto) 4.5 (2.0-8.3) X10*3/uL Absolute Nucleated RBC 0.000 (0.0-0.012) X10*3/uL Nucleated RBC % (auto) 0.0 (0.0-0.2) /100WBC D-Dimer < 200 NG/ML Sodium (135-145) mmol/L Potassium (3.3-5.1) mmol/L Chloride (96-108) mmol/L Carbon Dioxide (22-29) mmol/L Anion Gap (12-20) BUN (9-16) mg/dL Creatinine (0.5-1.4) mg/dL Estim Creat Clear Calc Estimated GFR Random Glucose (60-115) mg/dL Calcium (8.4-10.2) mg/dL Magnesium (1.6-2.6) mg/dL Total Bilirubin (0.0-1.0) mg/dL AST (5-31) U/L ALT (0-31) U/L Alkaline Phosphatase (39-117) U/L B-Natriuretic Peptide (<100) pg/mL Total Protein (6.5-8.0) g/dL Albumin (3.5-5.0) g/dL Urine Color Urine Appearance Urine pH (5.0-8.0) Ur Specific [place] (1.005-1.025) Urine Protein (NEG-TRACE) MG/DL Urine Glucose (UA) (NEG) MG/DL Urine Ketones (NEG) MG/DL Urine Blood (NEG) Urine Nitrite (NEG) Ur Leukocyte Esterase (NEG) COVID-19 (MIKE) Negative (Negative) COVID-19 Clin Com See Note 02/24/21 02/24/21 02/24/21 Range/Units 16:50 16:50 18:48 WBC (4.8-10.8) X10*3/uL RBC (4.20-5.50) X10*6/uL Hgb (12.0-16.0) g/dl Hct (37-47) % MCV (80-98) fL MCH (27.0-33.0) pg MCHC (31.0-35.0) g/dl RDW (11.0-16.0) % Plt Count (160-400) X10*3/uL MPV (9.4-12.3) fL Immature Gran % (Auto) (0.0-0.4) % Neut % (Auto) (45-73) % Lymph % (Auto) (20-40) % [place] % (Auto) (2-11) % Eos % (Auto) (0-4) % Baso % (Auto) (0-2) % Lymph # (Auto) (1.2-4.9) X10*3/uL [place] # (Auto) (0.1-1.2) X10*3/uL Eos # (Auto) (0.0-0.4) X10*3/uL Baso # (Auto) (0.0-0.2) X10*3/uL Abs Immat Gran (auto) (0.00-0.03) X10*3/uL Absolute Neuts (auto) (2.0-8.3) X10*3/uL Absolute Nucleated RBC (0.0-0.012) X10*3/uL Nucleated RBC % (auto) (0.0-0.2) /100WBC D-Dimer NG/ML Sodium 141 (135-145) mmol/L Potassium 4.0 (3.3-5.1) mmol/L Chloride 104 (96-108) mmol/L Carbon Dioxide 30 H (22-29) mmol/L Anion Gap 11 L (12-20) BUN 10 (9-16) mg/dL Creatinine 0.80 (0.5-1.4) mg/dL Estim Creat Clear Calc 100.1 Estimated GFR > 60 Random Glucose 92 (60-115) mg/dL Calcium 9.8 (8.4-10.2) mg/dL Magnesium 2.2 (1.6-2.6) mg/dL Total Bilirubin 0.9 (0.0-1.0) mg/dL AST 53 H (5-31) U/L ALT 81 H (0-31) U/L Alkaline Phosphatase 85 (39-117) U/L B-Natriuretic Peptide < 10 (<100) pg/mL Total Protein 8.2 H (6.5-8.0) g/dL Albumin 4.7 (3.5-5.0) g/dL Urine Color YELLOW Urine Appearance CLEAR Urine pH 6.0 (5.0-8.0) Ur Specific [place] >= 1.030 H (1.005-1.025) Urine Protein NEG (NEG-TRACE) MG/DL Urine Glucose (UA) NEG (NEG) MG/DL Urine Ketones 5 (NEG) MG/DL Urine Blood NEG (NEG) Urine Nitrite NEG (NEG) Ur Leukocyte Esterase NEG (NEG) COVID-19 (MIKE) (Negative) COVID-19 Clin Com Discharge Plan Discharge Clinical Impression: Allergic asthma with acute exacerbation Patient Disposition: Home, Self-Care Instructions: Asthma (ED), Allergies (ED), Bronchospasm (ED) Additional Instructions: You have pending lab results if any are positive you will be contacted. Prescriptions: New albuterol sulfate 0.63 mg/3 mL solution for nebulization 0.63 mg inhalation QID PRN (Reason: shortness of breath or wheezing) Qty: 75 RF: 0 albuterol sulfate 90 mcg/actuation HFA aerosol inhaler 1 inh inhalation QID PRN (Reason: shortness of breath or wheezing) Qty: 8.5 RF: 0 azithromycin 250 mg tablet See Rx Instructions .ROUTE .COMPLEX Qty: 6 RF: 0 codeine-guaifenesin [Guaifenesin AC] 10-100 mg/5 mL liquid 5 ml PO Q6H PRN (Reason: cold symptoms) Qty: 120 RF: 0 loratadine [Claritin] 10 mg tablet 10 mg PO DAILY PRN (Reason: allergies) Qty: 10 RF: 0 prednisone 20 mg tablet 60 mg PO DAILY 5 Days Qty: 15 RF: 0 No Action albuterol sulfate [ProAir HFA] 90 mcg/actuation HFA aerosol inhaler 2 puff inhalation Q4-6H PRN (Reason: shortness of breath or wheezing) Qty: 8.5 RF: 0 Xolair 150 mg/mL syringe 225 mg subcut Q2W 28 Days Qty: 3 RF: 12 ipratropium-albuterol 0.5 mg-3 mg(2.5 mg base)/3 mL solution for nebulization 3 ml inhalation Q6H PRN (Reason: for wheezing) Qty: 180 RF: 6 cyclobenzaprine 5 mg tablet 5 mg PO Q8H PRN (Reason: pain (scale score 7-10)) 5 Days Qty: 14 RF: 0 duloxetine 60 mg capsule,delayed release(DR/EC) 60 mg PO DAILY RF: 0 montelukast 10 mg tablet 10 mg PO DAILY RF: 0 lidocaine [Lidoderm] 5 % adhesive patch,medicated 1 patch topical DAILY MDD remove after 12 hours PRN (Reason: pain) Qty: 30 RF: 3 acetaminophen [Arthritis Pain Relief (acetam)] 650 mg tablet extended release 650 mg PO Q8H PRN (Reason: pain) Qty: 40 RF: 2 triamcinolone acetonide 55 mcg aerosol,spray intranasal RF: 0 famotidine 40 mg tablet 40 mg PO DAILY RF: 0 prednisone 20 mg tablet 20 mg PO DAILY 9 Days Qty: 18 RF: 0 Trelegy Ellipta 100-62.5-25 mcg blister with device 1 inh inhalation DAILY 30 Days Qty: 1 RF: 6 Referrals: Paige Alvarez MD [Primary Care Provider] - 2 days Steve Chan MD [Physician] - 2 days Stand Alone Forms: Work/School Release Print Language: Barbadian
[2021-02-24 18:54] LABS: Glucose Urine UA NEG (NEG); Leukocyte Esterase Urine NEG (NEG); Nitrite Urine NEG (NEG); Specific Gravity - Urine >= 1.030 (1.005-1.025); Urine Blood NEG (NEG); Urine Ketones 5 MG/DL (NEG); Urine Protein NEG (NEG-TRACE)
[2021-02-24 18:55] LABS: Appearance Urine CLEAR; Color Urine YELLOW
[2021-02-24 18:57] LABS: Adenovirus PCR Not Detected (Not Detect.); Bordetella parapertussis PCR Not Detected (Not Detect.); Bordetella pertussis PCR Not Detected (Not Detect.); Chlamydia pneumoniae PCR Not Detected (Not Detect.); Coronavirus 229E PCR Not Detected (Not Detect.); Coronavirus HKU1 PCR Not Detected (Not Detect.); Coronavirus NL63 PCR Not Detected (Not Detect.); Coronavirus OC43 PCR Not Detected (Not Detect.); Human metapneumovirus PCR Not Detected (Not Detect.); Influenza A PCR Not Detected (Not Detect.); Influenza B PCR Not Detected (Not Detect.); Mycoplasma pneumoniae PCR Not Detected (Not Detect.); Parainfluenza 1 PCR Not Detected (Not Detect.); Parainfluenza 2 PCR Not Detected (Not Detect.); Parainfluenza 3 PCR Not Detected (Not Detect.); Parainfluenza 4 PCR Not Detected (Not Detect.); RSV PCR Not Detected (Not Detect.); Rhino/Enterovirus PCR Not Detected (Not Detect.); SARS-CoV-2 PCR Not Detected (Not Detect.)
[2021-02-24 19:41] VITALS: BP 101/68; PULSE 72; RESP 12; TEMP 36.9; O2SAT 98
[2021-02-24 19:51] LABS: UPreg QC Valid YES; Urine Pregnancy NEGATIVE (NEGATIVE)
== END 2021-02-24 19:58 | disposition home or self-care (01) ==
PROVIDERS: Physician Assistant Medical; Emergency Provider Emergency Medicine Emergency Medical Services; PCP Internal Medicine
DX: J45.901 Unspecified asthma with (acute) exacerbation (principal); R05 Cough; R00.0 Tachycardia, unspecified; Z79.899 Other long term (current) drug therapy; Z20.822 Contact with and (suspected) exposure to COVID-19
CPT/HCPCS: 36415; 71046; 80053; 81003; 81025; 83735; 83880; 85025; 85379; 87633; 87635; 93005; 99284

== ENCOUNTER → 2021-03-08 13:28 | Outpatient (BNVA) | payer OTHER, SELFPAY | PROVIDERS: PCP Internal Medicine; Visit Provider Internal Medicine Pulmonary Disease | DX: J45.50 Severe persistent asthma, uncomplicated (principal); M79.7 Fibromyalgia; E66.9 Obesity, unspecified; Z68.30 Body mass index [BMI] 30.0-30.9, adult; Z88.5 Allergy status to narcotic agent; Z88.2 Allergy status to sulfonamides; Z88.8 Allergy status to other drugs, medicaments and biological substances; Z91.09 Other allergy status, other than to drugs and biological substances | CPT/HCPCS: 99212 ==

== ENCOUNTER 2021-03-10 07:12 | Outpatient (REF) | payer OTHER, SELFPAY | END 2021-03-10 07:13 | disposition home or self-care (01) | LOC: HO.MDS 07:12 | PROVIDERS: PCP Internal Medicine; Visit Provider Internal Medicine Pulmonary Disease | DX: J45.50 Severe persistent asthma, uncomplicated (principal) | CPT/HCPCS: 96372; J2357 ==

== ENCOUNTER 2021-03-24 07:33 | Outpatient (REF) | payer OTHER, SELFPAY | END 2021-03-24 07:34 | disposition home or self-care (01) | LOC: HO.MDS 07:33 | PROVIDERS: PCP Internal Medicine; Visit Provider Internal Medicine Pulmonary Disease | DX: J45.50 Severe persistent asthma, uncomplicated (principal) | CPT/HCPCS: 96372; J2357 ==

== ENCOUNTER 2021-04-07 07:20 | Outpatient (REF) | payer OTHER, SELFPAY | END 2021-04-07 07:21 | disposition home or self-care (01) | LOC: HO.MDS 07:20 | PROVIDERS: PCP Internal Medicine; Visit Provider Internal Medicine Pulmonary Disease | DX: J45.50 Severe persistent asthma, uncomplicated (principal) | CPT/HCPCS: 96372; J2357 ==

== ENCOUNTER 2021-04-11 08:52 | Emergency (ER) | payer OTHER, SELFPAY ==
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
[2021-04-11 09:11] VITALS: BP 143/82; PULSE 105; RESP 18; TEMP 36.7; O2SAT 98; BMI 30.7
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
[2021-04-11] MEDS: Cyclobenzaprine HCl 5 MG TABLET PO (10:36)
[2021-04-11] MEDS: Ibuprofen 800 MG TABLET PO (10:37)
[2021-04-11] MEDS: LORazepam 1 MG TABLET PO (13:28)
== END 2021-04-11 13:58 | disposition home or self-care (01) ==
PROVIDERS: Emergency Provider Emergency Medicine; PCP Internal Medicine
DX: S09.90XA Unspecified injury of head, initial encounter (principal); M54.2 Cervicalgia; R07.81 Pleurodynia; M25.512 Pain in left shoulder; V43.52XA Car driver injured in collision with other type car in traffic accident, initial encounter; M79.602 Pain in left arm; M54.6 Pain in thoracic spine; M79.10 Myalgia, unspecified site; Y93.9 Activity, unspecified; Y92.410 Unspecified street and highway as the place of occurrence of the external cause; Y99.9 Unspecified external cause status; Z79.899 Other long term (current) drug therapy
CPT/HCPCS: 70450; 71101; 72125; 72128; 73000; 73030; 73090; 99283; 99284

== ENCOUNTER 2021-04-21 07:44 | Outpatient (REF) | payer OTHER, SELFPAY | END 2021-04-21 07:45 | disposition home or self-care (01) | LOC: HO.MDS 07:44 | PROVIDERS: PCP Internal Medicine; Visit Provider Internal Medicine Pulmonary Disease | DX: J45.50 Severe persistent asthma, uncomplicated (principal) | CPT/HCPCS: 96372; J2357 ==

== ENCOUNTER 2021-05-05 07:22 | Outpatient (REF) | payer OTHER, SELFPAY | END 2021-05-05 07:23 | disposition home or self-care (01) | LOC: HO.MDS 07:22 | PROVIDERS: PCP Internal Medicine; Visit Provider Internal Medicine Pulmonary Disease | DX: J45.50 Severe persistent asthma, uncomplicated (principal) | CPT/HCPCS: 96372; J2357 ==

== ENCOUNTER 2021-05-19 07:14 | Outpatient (REF) | payer OTHER, SELFPAY | END 2021-05-19 07:15 | disposition home or self-care (01) | LOC: HO.MDS 07:14 | PROVIDERS: PCP Internal Medicine; Visit Provider Internal Medicine Pulmonary Disease | DX: J45.50 Severe persistent asthma, uncomplicated (principal) | CPT/HCPCS: 96372; 99212; J2357 ==

== ENCOUNTER 2021-06-02 07:27 | Outpatient (REF) | payer OTHER, SELFPAY | END 2021-06-02 07:28 | disposition home or self-care (01) | LOC: HO.MDS 07:27 | PROVIDERS: PCP Internal Medicine; Visit Provider Internal Medicine Pulmonary Disease | DX: J45.50 Severe persistent asthma, uncomplicated (principal) | CPT/HCPCS: 96372; J2357 ==

== ENCOUNTER 2021-06-16 07:10 | Outpatient (REF) | payer OTHER, SELFPAY | END 2021-06-16 07:11 | disposition home or self-care (01) | LOC: HO.MDS 07:10 | PROVIDERS: PCP Internal Medicine; Visit Provider Internal Medicine Pulmonary Disease | DX: J45.50 Severe persistent asthma, uncomplicated (principal) | CPT/HCPCS: 96372; J2357 ==

== ENCOUNTER 2021-06-30 07:18 | Outpatient (REF) | payer OTHER, SELFPAY | END 2021-06-30 07:19 | disposition home or self-care (01) | LOC: HO.MDS 07:18 | PROVIDERS: PCP Internal Medicine; Visit Provider Internal Medicine Pulmonary Disease | DX: J45.50 Severe persistent asthma, uncomplicated (principal) | CPT/HCPCS: 96372; J2357 ==

== ENCOUNTER 2021-07-14 07:15 | Outpatient (REF) | payer OTHER, SELFPAY | END 2021-07-14 07:16 | disposition home or self-care (01) | LOC: HO.MDS 07:15 | PROVIDERS: PCP Internal Medicine; Visit Provider Internal Medicine Pulmonary Disease | DX: J45.50 Severe persistent asthma, uncomplicated (principal) | CPT/HCPCS: 96372; J2357 ==

== ENCOUNTER 2021-07-28 07:21 | Outpatient (REF) | payer OTHER, SELFPAY | END 2021-07-28 07:22 | disposition home or self-care (01) | LOC: HO.MDS 07:21 | PROVIDERS: PCP Internal Medicine; Visit Provider Internal Medicine Pulmonary Disease | DX: J45.50 Severe persistent asthma, uncomplicated (principal) | CPT/HCPCS: 96372; J2357 ==

== ENCOUNTER 2021-08-11 07:14 | Outpatient (REF) | payer OTHER, SELFPAY | END 2021-08-11 07:15 | disposition home or self-care (01) | LOC: HO.MDS 07:14 | PROVIDERS: PCP Internal Medicine; Visit Provider Internal Medicine Pulmonary Disease | DX: J45.50 Severe persistent asthma, uncomplicated (principal) | CPT/HCPCS: 96372; J2357 ==

== ENCOUNTER → 2021-08-23 11:33 | Outpatient (BNVA) | payer OTHER, SELFPAY | PROVIDERS: PCP Internal Medicine; Visit Provider Internal Medicine Pulmonary Disease | DX: J45.50 Severe persistent asthma, uncomplicated (principal); Z91.09 Other allergy status, other than to drugs and biological substances | CPT/HCPCS: 99212 ==

== ENCOUNTER 2021-08-25 07:50 | Outpatient (REF) | payer OTHER, SELFPAY | END 2021-08-25 07:51 | disposition home or self-care (01) | LOC: HO.MDS 07:50 | PROVIDERS: PCP Internal Medicine; Visit Provider Internal Medicine Pulmonary Disease | DX: J45.50 Severe persistent asthma, uncomplicated (principal) | CPT/HCPCS: 96372; J2357 ==

== ENCOUNTER → 2021-08-30 09:45 | Outpatient (BNVA) | payer OTHER, SELFPAY | PROVIDERS: PCP Internal Medicine; Visit Provider Internal Medicine Pulmonary Disease | DX: J45.51 Severe persistent asthma with (acute) exacerbation (principal); Z91.09 Other allergy status, other than to drugs and biological substances | CPT/HCPCS: 99212 ==

== ENCOUNTER → 2021-09-13 09:52 | Outpatient (BNVA) | payer OTHER, SELFPAY | PROVIDERS: PCP Internal Medicine; Visit Provider Internal Medicine Pulmonary Disease | DX: J45.50 Severe persistent asthma, uncomplicated (principal); Z91.09 Other allergy status, other than to drugs and biological substances | CPT/HCPCS: 99212 ==

== ENCOUNTER → 2021-09-20 10:24 | Outpatient (BNVA) | payer OTHER, SELFPAY | PROVIDERS: PCP Internal Medicine; Visit Provider Internal Medicine Pulmonary Disease | DX: J45.50 Severe persistent asthma, uncomplicated (principal) | CPT/HCPCS: 99211 ==

== ENCOUNTER → 2021-10-31 10:56 | Outpatient (BNVA) | payer OTHER, SELFPAY | PROVIDERS: PCP Internal Medicine; Visit Provider Internal Medicine Pulmonary Disease | DX: J45.51 Severe persistent asthma with (acute) exacerbation (principal); Z91.09 Other allergy status, other than to drugs and biological substances | CPT/HCPCS: 99212 ==

== ENCOUNTER 2021-11-02 01:57 | Emergency (ER) | payer OTHER, SELFPAY ==
--- NOTE | 2021-11-02 | ECG_ITS ---
Test Reason : CHEST PAIN Blood Pressure : / mmHG Vent. Rate : 104 BPM Atrial Rate : 104 BPM P-R Int : 132 ms QRS Dur : 078 ms QT Int : 346 ms P-R-T Axes : 053 010 013 degrees QTc Int : 454 ms Sinus tachycardia Minimal voltage criteria for LVH, may be normal variant ( R in aVL ) Borderline ECG No previous ECGs available Referred By: Ashlee Bolton Electronically Signed By:MITUL SENIOR MD
--- NOTE | ~2021-11-02 | XR_ITS ---
EXAMINATION: XR CHEST CLINICAL INFORMATION: Cough, shortness of breath COMPARISON: 04/11/2021 TECHNIQUE: 2 views of the chest were obtained. FINDINGS: The lungs are clear with no focal consolidation. No evidence of pneumothorax, pulmonary edema, or pleural effusions. The cardiomediastinal silhouette is unremarkable. No acute osseous findings. XR/XR chest 2V IMPRESSION: No acute cardiopulmonary findings.
[2021-11-02 02:22] VITALS: BP 122/92; PULSE 106; RESP 16; TEMP 37.1; O2SAT 98; BMI 26.6
[2021-11-02 02:46] LABS: Hematocrit 45.5 % (37.0-47.0); Hemoglobin 14.9 g/dl (12.0-16.0); Mean Corpuscular HGB Conc 32.7 g/dl (31.0-35.0); Mean Corpuscular Volume 88.7 fL (80.0-98.0); Platelet Count 280 X10*3/uL (160-400); Red Blood Count 5.13 X10*6/uL (4.20-5.50); Red Cell Distribution Width 13.4 % (11.0-16.0); White Blood Count 7.8 X10*3/uL (4.8-10.8)
[2021-11-02 03:14] LABS: COVID-19 Test Negative (Negative); IDNOW Serial# 16C4AD1C; Strep A Nucleic Acid Negative (Negative)
[2021-11-02 03:29] LABS: Alanine Aminotransferase 88 U/L (0-31); Albumin Level 4.6 g/dL (3.5-5.0); Alkaline Phosphatase 90 U/L (39-117); Anion Gap 16 (12-20); Aspartate Amino Transferase 48 U/L (5-31); Bilirubin Total 0.3 mg/dL (0.0-1.0); Blood Urea Nitrogen 11 mg/dL (9-16); Calcium 9.8 mg/dL (8.4-10.2); Carbon Dioxide 21 mmol/L (22-29); Chloride 104 mmol/L (96-108); Creatinine Clr Calc Pharmacy 85.8; Estimated Glomerular Filt Rate > 60; Glucose Random 194 mg/dL (60-115); Potassium 4.3 mmol/L (3.3-5.1); Sodium 137 mmol/L (135-145)
[2021-11-02 04:18] VITALS: BP 127/75; PULSE 90; RESP 16; O2SAT 95
[2021-11-02 05:56] VITALS: BP 116/73; PULSE 87; RESP 18; O2SAT 96
--- NOTE | 2021-11-02 06:53 | ED.GENADULT ---
HPI - General Adult General Chief complaint: General Medical Stated complaint: cough, throat pain Time Seen by Provider: 11/02/21 02:02 Source: patient and psychological operations officer Mode of arrival: ambulatory History of Present Illness HPI narrative: 41-year-old female with underlying severe asthma under the care of a emergency management program specialist presents with worsening shortness of and coughs Sunday. Patient was evaluated by her emergency management program specialist and started on steroids as well as more aggressive nebulized treatments. Patient denies any associated fever, chills, in states that she has blood-tinged sputum and states that her emergency management program specialist is aware of this as well. Patient has not taken any [id number] medication for her cough as she states she has multiple medical allergies and is worried about it. Related Data Home Medications Medication Instructions Recorded Confirmed duloxetine 60 mg capsule,delayed 60 mg PO DAILY 07/01/20 09/20/21 release montelukast 10 mg tablet 10 mg PO DAILY 07/01/20 09/20/21 famotidine 40 mg tablet 40 mg PO DAILY 11/17/20 09/20/21 triamcinolone acetonide 55 mcg INTRANASAL 11/17/20 09/20/21 nasal spray aerosol Previous Rx's Medication Instructions Recorded lidocaine 5 % topical patch 1 patch TOPICAL DAILY PRN #30 ea 12/21/20 (Lidoderm) MDD remove after 12 hours loratadine 10 mg tablet (Claritin) 10 mg PO DAILY PRN #10 tab 02/24/21 acetaminophen 650 mg 650 mg PO Q8H PRN #40 tab 04/05/21 tablet,extended release (Arthritis Pain Relief (acetaminophen) ER) cyclobenzaprine 5 mg tablet 5 mg PO TID PRN #9 tab 04/11/21 ibuprofen 800 mg tablet 800 mg PO Q8H 5 Days #15 tab 04/11/21 fluticasone fur. 100 mcg-umeclid 1 inh INHALATION DAILY 30 Days #1 08/23/21 62.5 mcg-vilant 25 mcg ea inhalat.powder (Trelegy Ellipta) ipratropium 0.5 mg-albuterol 3 mg 3 ml INHALATION Q6H PRN #180 ml 08/23/21 (2.5 mg base)/3 mL nebulization soln dupilumab 300 mg/2 mL subcutaneous See Rx Instructions SUBCUT Q2W 28 09/14/21 pen injector (Dupixent) Days #4 ml levofloxacin 750 mg tablet 750 mg PO DAILY 7 Days #7 tab 09/14/21 albuterol sulfate 90 mcg/actuation 2 puff INHALATION Q4-6H PRN 30 10/31/21 aerosol inhaler (ProAir HFA) Days #8.5 g prednisone 10 mg tablet See Rx Instructions PO DAILY 28 10/31/21 Days #70 tab benzonatate 100 mg capsule 100 mg PO TID PRN #14 cap 11/02/21 Allergies Allergy/AdvReac Type Severity Reaction Status Date / Time tramadol [TRAMADOL] Allergy Mild RASH, Verified 10/31/21 10:58 Vomitting gabapentin [GABAPENTIN] Allergy Unknown UNKNOWN, Verified 10/31/21 10:58 rash, rash, vomiting Sulfa (Sulfonamide Allergy Unknown RASH, hives Verified 10/31/21 10:58 Antibiotics) [SULFA (SULFONAMIDE ANTIBIOTICS)] diphtheria,pertussis AdvReac Unknown BODYACHES, Verified 10/31/21 10:58 (acellular),te NAUSEA [TDAP] morphine [MORPHINE] AdvReac Unknown NAUSEA & Verified 10/31/21 10:58 VOMITING, N/V, vomiting Review of Systems Review of Systems: Pertinent positives and negatives as stated in HPI 10 point review of systems is otherwise negative. [facility] Past Medical History Source: nursing notes reviewed Medical History Acalculous cholecystitis Asthma Environmental allergies Fibromyalgia Fibromyalgia Gastritis GERD (gastroesophageal reflux disease) Obesity (BMI 30.0-34.9) Surgical History H/O: hysterectomy History of colonoscopy Hx of cholecystectomy Family History Family History Father No problems noted. Mother HTN (hypertension) Maternal Aunt Breast cancer Brother No problems noted. Sister No problems noted. Son Mental health disorder Son Mental health disorder Son Mental health disorder Social History Social History Housing: House Alcohol intake: current Alcohol intake frequency: does not drink Patient Tobacco Use Status: Never used Tobacco e-Cigarette/Vaping Use: Never Used Second Hand Smoke Exposure: No Use of substances other than those prescribed or required for medical reasons: Unknown Advance Directives: No Advance Directives Information Provided: Yes service: No Current occupational status: unemployed Physical Exam ED Vital Signs: Vital Signs - 24 hr 11/02/21 02:22 11/02/21 04:18 11/02/21 05:56 Temperature 98.8 F Pulse Rate 106 H 90 87 Respiratory Rate 16 16 18 Blood Pressure 122/92 H 127/75 116/73 Pulse Oximetry 98 95 96 BMI result Body Mass Index 26.6 VITAL SIGNS: Reviewed. GENERAL: Well developed, well nourished, in no acute distress. HEAD: Normocephalic/atraumatic, EYES: PERRLA, EOMI EARS: Ext canals without abnormality, TMs non-bulging and non-erythematous NOSE: Nares patent bilateral OROPHARYNX: no oral lesions noted, posterior pharynx clear and non-erythematous without noted tonsillar enlargement/erythema/exudates NECK: Supple, no adenopathy LUNGS: Normal breath sounds, no stridor, no tachypnea, dry cough, SpO2<98> CARDIOVASCULAR: Regular rate and rhythm without noted murmurs ABDOMEN: Soft, non-tender, non-distended with bowel sounds. MUSCULOSKELETAL: No tenderness, deformities, or effusions noted on gross inspection. EXTREMITIES: No cyanosis, clubbing or edema. SKIN: Inspection of the skin reveals no rashes NEUROLOGIC: Alert and oriented x 4. Strength and sensation to light touch were grossly intact x 4. Course Course Course Narrative: 41-year-old female with history and clinical presentation consistent with history that suggest she is getting some airway irritation and likely leading to blood-tinged sputum. Patient provided with Tessalon and Cepacol for cough and sore throat respectively and findings are otherwise negative for evidence to suggest asthma exacerbation and on review of all investigations there are no acute findings. Patient otherwise encouraged to follow-up with her emergency management program specialist today and provided with a script for Mabel Kumar. Medical Decision Making Lab Data Result diagrams: 11/02/21 02:39 11/02/21 02:39 Labs: Lab Results 11/02/21 11/02/21 11/02/21 Range/Units 02:39 02:39 02:39 WBC 7.8 (4.8-10.8) X10*3/uL RBC 5.13 (4.20-5.50) X10*6/uL Hgb 14.9 (12.0-16.0) g/dl Hct 45.5 (37.0-47.0) % MCV 88.7 (80.0-98.0) fL MCH 29.0 (27.0-33.0) pg MCHC 32.7 (31.0-35.0) g/dl RDW 13.4 (11.0-16.0) % Plt Count 280 (160-400) X10*3/uL MPV 10.0 (9.4-12.3) fL Absolute Nucleated RBC 0.000 (0.0-0.012) X10*3/uL Nucleated RBC % (auto) 0.0 (0.0-0.2) /100WBC Sodium (135-145) mmol/L Potassium (3.3-5.1) mmol/L Chloride (96-108) mmol/L Carbon Dioxide (22-29) mmol/L Anion Gap (12-20) BUN (9-16) mg/dL Creatinine (0.5-1.4) mg/dL Estim Creat Clear Calc Estimated GFR Random Glucose (60-115) mg/dL Calcium (8.4-10.2) mg/dL Total Bilirubin (0.0-1.0) mg/dL AST (5-31) U/L ALT (0-31) U/L Alkaline Phosphatase (39-117) U/L Total Protein (6.5-8.0) g/dL Albumin (3.5-5.0) g/dL COVID-19 (MIKE) Negative (Negative) COVID-19 Clin Com See Note S. pyogenes GrpA ASIA Negative (Negative) 11/02/21 Range/Units 02:39 WBC (4.8-10.8) X10*3/uL RBC (4.20-5.50) X10*6/uL Hgb (12.0-16.0) g/dl Hct (37.0-47.0) % MCV (80.0-98.0) fL MCH (27.0-33.0) pg MCHC (31.0-35.0) g/dl RDW (11.0-16.0) % Plt Count (160-400) X10*3/uL MPV (9.4-12.3) fL Absolute Nucleated RBC (0.0-0.012) X10*3/uL Nucleated RBC % (auto) (0.0-0.2) /100WBC Sodium 137 (135-145) mmol/L Potassium 4.3 (3.3-5.1) mmol/L Chloride 104 (96-108) mmol/L Carbon Dioxide 21 L (22-29) mmol/L Anion Gap 16 (12-20) BUN 11 (9-16) mg/dL Creatinine 0.87 (0.5-1.4) mg/dL Estim Creat Clear Calc 85.8 Estimated GFR > 60 Random Glucose 194 H (60-115) mg/dL Calcium 9.8 (8.4-10.2) mg/dL Total Bilirubin 0.3 (0.0-1.0) mg/dL AST 48 H (5-31) U/L ALT 88 H (0-31) U/L Alkaline Phosphatase 90 (39-117) U/L Total Protein 8.0 (6.5-8.0) g/dL Albumin 4.6 (3.5-5.0) g/dL COVID-19 (MIKE) (Negative) COVID-19 Clin Com S. pyogenes GrpA ASIA (Negative) ECG Data Attestation: I personally reviewed and interpreted this ECG as follows: Prior ECG tracings: available for review Interpretation: Sinus tachycardia, HR-104, no STEMI, OH/QRS/QTC are within normal limits. Discharge Plan Discharge Clinical Impression: Cough, Sore throat Patient Disposition: Home, Self-Care Instructions: Pharyngitis (ED), Acute Cough (ED) Additional Instructions: 1. Reanudar todos los medicamentos caseros seg?n lo prescrito. 2. Considere hacer g?rgaras con soluci?n salina (mezcle agua tibia del grifo con william de greer) y isis g?rgaras rohit 5 minutos. 3. Seguimiento con bravo m?dico hoy Regrese a la vega de emergencias si los s?ntomas empeoran. Prescriptions: New benzonatate 100 mg capsule 100 mg PO TID PRN (Reason: cough) Qty: 14 0RF No Action acetaminophen [Arthritis Pain Relief (acetam)] 650 mg tablet extended release 650 mg PO Q8H PRN (Reason: pain) Qty: 40 2RF Dupixent Pen 300 mg/2 mL pen injector See Rx Instructions subcut Q2W 28 Days Qty: 4 12RF Rx Instructions: Initial 600 mg, then 300 mg every 2 weeks subcut; levofloxacin 750 mg tablet 750 mg PO DAILY 7 Days Qty: 7 0RF loratadine [Claritin] 10 mg tablet 10 mg PO DAILY PRN (Reason: allergies) Qty: 10 0RF cyclobenzaprine 5 mg tablet 5 mg PO TID PRN (Reason: muscle spasm) Qty: 9 0RF ibuprofen 800 mg tablet 800 mg PO Q8H 5 Days Qty: 15 0RF duloxetine 60 mg capsule,delayed release(DR/EC) 60 mg PO DAILY 0RF montelukast 10 mg tablet 10 mg PO DAILY 0RF lidocaine [Lidoderm] 5 % adhesive patch,medicated 1 patch topical DAILY MDD remove after 12 hours PRN (Reason: pain) Qty: 30 3RF Rx Instructions: leave on most painful area for up to 12 hrs triamcinolone acetonide 55 mcg aerosol,spray intranasal 0RF famotidine 40 mg tablet 40 mg PO DAILY 0RF Trelegy Ellipta 100-62.5-25 mcg blister with device 1 inh inhalation DAILY 30 Days Qty: 1 6RF ipratropium-albuterol 0.5 mg-3 mg(2.5 mg base)/3 mL solution for nebulization 3 ml inhalation Q6H PRN (Reason: for wheezing) Qty: 180 6RF prednisone 10 mg tablet See Rx Instructions PO DAILY 28 Days Qty: 70 0RF Rx Instructions: Take four tabs daily for 7 days, then go down by 1 tab every 7 days. PO daily; albuterol sulfate [ProAir HFA] 90 mcg/actuation HFA aerosol inhaler 2 puff inhalation Q4-6H PRN (Reason: shortness of breath or wheezing) 30 Days Qty: 8.5 6RF Referrals: Steve Chan MD [Physician] - Print Language: [place] Islander
[2021-11-02] MEDS: Benzonatate 100 MG CAPSULE 200 MG PO (07:13)
[2021-11-02] MEDS: Throat Lozenge, Medicated LOZENGE 1 LOZENGE MUCOUS MEM (07:13)
== END 2021-11-02 07:18 | disposition home or self-care (01) ==
PROVIDERS: Emergency Provider Student in an Organized Health Care Education/Training Program
DX: J02.9 Acute pharyngitis, unspecified (principal); R05.9 Cough, unspecified; R06.02 Shortness of breath; Z20.822 Contact with and (suspected) exposure to COVID-19; Z79.899 Other long term (current) drug therapy
CPT/HCPCS: 36415; 71046; 80053; 85027; 87635; 87651; 93005; 94640; 99212; 99284

== ENCOUNTER → 2021-11-16 11:13 | Outpatient (BNVA) | payer OTHER, SELFPAY | PROVIDERS: PCP Internal Medicine; Visit Provider Internal Medicine Pulmonary Disease | DX: J45.50 Severe persistent asthma, uncomplicated (principal); Z91.09 Other allergy status, other than to drugs and biological substances; Z79.899 Other long term (current) drug therapy | CPT/HCPCS: 99212 ==

== ENCOUNTER 2021-11-28 09:25 | Outpatient (REF) | payer OTHER, SELFPAY ==
--- NOTE | ~2021-11-28 | CT_ITS ---
EXAMINATION: CT CHEST WITHOUT CONTRAST CLINICAL INFORMATION: Hemoptysis COMPARISON: Previous chest x-ray most recent October [address] December 2017 TECHNIQUE: Multidetector volumetric CT imaging of the chest was done. Axial MIP volume rendering provided. Sagittal and coronal reformatted images were obtained. This CT examination was performed using dose optimization techniques as appropriate, variously including the following: *Automated exposure control *Adjustment of mA and/or kV according to patient size (this includes techniques or standardized protocols for targeted exams where dose is matched to indication/reason for exam; i.e. extremities or head) *Use of iterative reconstruction technique DLP: 176 mGy-cm FINDINGS: LUNGS: There is a 2 mm apical right upper lobe nodule axial image 117 series 7 that is stable. There is a 4 mm calcified right lower lobe nodule axial image 334 series 7 that is stable. There is a 1 cm calcified right lower lobe nodule axial image 423 series 7 that is stable. There is a 3 mm peripheral or subpleural right lower lobe nodule probably representing a subpleural lymph node axial image 281 series 7 that is new. There is a 2 mm left lower lobe nodule axial image 284 series 7 that is new. No endobronchial or endotracheal lesion. No evidence of emphysema bronchiectasis or fistula lung disease. MEDIASTINUM: The mediastinum is normal. PLEURA: There is no pleural effusion. No pleural mass or thickening. AXILLA: There are small bilateral axillary lymph nodes. Enlarged nodes chest wall mass is seen. UPPER ABDOMEN: The gallbladder has been removed. There are small calcifications in the spleen that is stable probably related to old granulomatous disease. OSSEOUS STRUCTURES: Unremarkable. CT/CT chest wo con IMPRESSION: No cause of hemoptysis seen. Evidence of old granulomatous disease. There are 2 small newly appreciated bilateral lower lobe nodules, largest measuring 3 mm. According to the UPDATED 2017 Fleischner Society recommendations, the advised follow-up imaging for less than 6 mm nodule: Low risk, no chest CT follow-up and high risk, optional chest CT follow-up. Fleischner guidelines were followed.
== END 2021-11-28 09:26 | disposition home or self-care (01) ==
LOC: HO.CT 09:25
PROVIDERS: PCP Internal Medicine; Visit Provider Internal Medicine Pulmonary Disease
DX: R04.2 Hemoptysis (principal)
CPT/HCPCS: 71250

== ENCOUNTER → 2022-01-25 10:45 | Outpatient (BNVA) | payer OTHER, SELFPAY | PROVIDERS: PCP Internal Medicine; Visit Provider Internal Medicine Pulmonary Disease | DX: J45.50 Severe persistent asthma, uncomplicated (principal); J40 Bronchitis, not specified as acute or chronic; Z91.09 Other allergy status, other than to drugs and biological substances | CPT/HCPCS: 99212 ==

== ENCOUNTER 2022-03-10 02:11 | Emergency (ER) | payer OTHER, SELFPAY ==
[2022-03-10 02:27] VITALS: BP 117/80; PULSE 69; RESP 16; TEMP 37.2; O2SAT 98; BMI 30.2
[2022-03-10 02:52] LABS: COVID-19 Test Negative (Negative)
== END 2022-03-10 04:37 | disposition left against medical advice (07) ==
LOC: HO.ED 04:37
PROVIDERS: Emergency Provider Emergency Medicine; PCP Internal Medicine
DX: J45.909 Unspecified asthma, uncomplicated (principal); Z20.822 Contact with and (suspected) exposure to COVID-19
CPT/HCPCS: 87635; 99281; 99283

== ENCOUNTER → 2022-03-14 10:29 | Outpatient (BNVA) | payer OTHER, SELFPAY | PROVIDERS: PCP Internal Medicine; Visit Provider Internal Medicine Pulmonary Disease | DX: J45.50 Severe persistent asthma, uncomplicated (principal); J40 Bronchitis, not specified as acute or chronic; Z91.09 Other allergy status, other than to drugs and biological substances | CPT/HCPCS: 99212 ==

== ENCOUNTER → 2022-04-20 09:47 | Outpatient (BNVA) | payer OTHER, SELFPAY | PROVIDERS: PCP Internal Medicine; Visit Provider Internal Medicine Pulmonary Disease | DX: J45.50 Severe persistent asthma, uncomplicated (principal); Z91.09 Other allergy status, other than to drugs and biological substances | CPT/HCPCS: 99212 ==

== ENCOUNTER → 2022-05-24 10:25 | Outpatient (BNVA) | payer OTHER, SELFPAY | PROVIDERS: PCP Internal Medicine; Visit Provider Internal Medicine Pulmonary Disease | DX: J45.50 Severe persistent asthma, uncomplicated (principal); Z91.09 Other allergy status, other than to drugs and biological substances | CPT/HCPCS: 99212 ==

== ENCOUNTER → 2022-06-08 10:39 | Outpatient (BNVA) | payer OTHER, SELFPAY | PROVIDERS: PCP Internal Medicine; Visit Provider Internal Medicine Pulmonary Disease | DX: J45.50 Severe persistent asthma, uncomplicated (principal); Z91.09 Other allergy status, other than to drugs and biological substances | CPT/HCPCS: 99212 ==

== ENCOUNTER 2022-07-19 07:35 | Outpatient (REF) | payer OTHER, SELFPAY | END 2022-07-19 07:36 | disposition home or self-care (01) | LOC: HO.MDS 07:35 | PROVIDERS: Visit Provider Internal Medicine Pulmonary Disease | DX: J45.50 Severe persistent asthma, uncomplicated (principal) | CPT/HCPCS: 96372; J2356 ==

== ENCOUNTER 2022-08-14 07:27 | Outpatient (REF) | payer OTHER, SELFPAY | END 2022-08-14 07:28 | disposition home or self-care (01) | LOC: HO.MDS 07:27 | PROVIDERS: Visit Provider Internal Medicine Pulmonary Disease | DX: J45.50 Severe persistent asthma, uncomplicated (principal) | CPT/HCPCS: 96372 ==

== ENCOUNTER 2022-09-11 07:27 | Outpatient (REF) | payer OTHER, SELFPAY | END 2022-09-11 07:28 | disposition home or self-care (01) | LOC: HO.MDS 07:27 | PROVIDERS: Visit Provider Internal Medicine Pulmonary Disease | DX: J45.50 Severe persistent asthma, uncomplicated (principal) | CPT/HCPCS: 96372 ==

== ENCOUNTER → 2022-09-14 14:11 | Outpatient (BNVA) | payer OTHER, SELFPAY | PROVIDERS: PCP Internal Medicine; Visit Provider Internal Medicine Pulmonary Disease | DX: J45.50 Severe persistent asthma, uncomplicated (principal); G47.33 Obstructive sleep apnea (adult) (pediatric); Z91.09 Other allergy status, other than to drugs and biological substances | CPT/HCPCS: 99212 ==

== ENCOUNTER 2022-10-09 07:50 | Outpatient (REF) | payer OTHER, SELFPAY | END 2022-10-09 07:51 | disposition home or self-care (01) | LOC: HO.MDS 07:50 | PROVIDERS: Visit Provider Internal Medicine Pulmonary Disease | DX: J45.50 Severe persistent asthma, uncomplicated (principal) | CPT/HCPCS: 96372 ==

== ENCOUNTER → 2022-10-13 09:13 | Outpatient (REF) | payer OTHER, SELFPAY | LOC: HO.SL 09:13 | PROVIDERS: PCP Internal Medicine; Visit Provider Internal Medicine Pulmonary Disease | DX: G47.33 Obstructive sleep apnea (adult) (pediatric) (principal) | CPT/HCPCS: 95806 ==

== ENCOUNTER → 2022-10-17 12:38 | Outpatient (BNVA) | payer OTHER, SELFPAY | PROVIDERS: PCP Internal Medicine; Visit Provider Internal Medicine Pulmonary Disease | DX: J45.51 Severe persistent asthma with (acute) exacerbation (principal); Z91.09 Other allergy status, other than to drugs and biological substances | CPT/HCPCS: 96372; 99212; J2930 ==

== ENCOUNTER 2022-11-16 07:16 | Outpatient (REF) | payer OTHER, SELFPAY | END 2022-11-16 07:17 | disposition home or self-care (01) | LOC: HO.MDS 07:16 | PROVIDERS: Visit Provider Internal Medicine Pulmonary Disease | DX: J45.50 Severe persistent asthma, uncomplicated (principal) | CPT/HCPCS: 96372 ==

== ENCOUNTER → 2022-12-05 14:42 | Outpatient (BNVA) | payer OTHER, SELFPAY | PROVIDERS: PCP Internal Medicine; Visit Provider Internal Medicine Pulmonary Disease | DX: J45.50 Severe persistent asthma, uncomplicated (principal); Z91.09 Other allergy status, other than to drugs and biological substances | CPT/HCPCS: 99212 ==

== ENCOUNTER 2022-12-14 07:16 | Outpatient (REF) | payer OTHER, SELFPAY | END 2022-12-14 07:17 | disposition home or self-care (01) | LOC: HO.MDS 07:16 | PROVIDERS: Visit Provider Internal Medicine Pulmonary Disease | DX: J45.50 Severe persistent asthma, uncomplicated (principal) | CPT/HCPCS: 96372 ==

== ENCOUNTER → 2022-12-19 10:28 | Outpatient (BNVA) | payer OTHER, SELFPAY | PROVIDERS: PCP Internal Medicine; Visit Provider Nurse Practitioner Family | DX: J45.50 Severe persistent asthma, uncomplicated (principal); J40 Bronchitis, not specified as acute or chronic; Z91.09 Other allergy status, other than to drugs and biological substances | CPT/HCPCS: 99212 ==

== ENCOUNTER → 2023-01-02 09:51 | Outpatient (BNVA) | payer OTHER, SELFPAY | PROVIDERS: PCP Internal Medicine; Visit Provider Internal Medicine Pulmonary Disease | DX: J45.50 Severe persistent asthma, uncomplicated (principal); J40 Bronchitis, not specified as acute or chronic; Z91.09 Other allergy status, other than to drugs and biological substances; Z79.899 Other long term (current) drug therapy | CPT/HCPCS: 99212 ==

== ENCOUNTER 2023-01-11 07:09 | Outpatient (REF) | payer OTHER, SELFPAY | END 2023-01-11 07:10 | disposition home or self-care (01) | LOC: HO.MDS 07:09 | PROVIDERS: Visit Provider Internal Medicine Pulmonary Disease | DX: J45.50 Severe persistent asthma, uncomplicated (principal) | CPT/HCPCS: 96372 ==

== ENCOUNTER 2023-02-08 07:10 | Outpatient (REF) | payer OTHER, SELFPAY | END 2023-02-08 07:11 | disposition home or self-care (01) | LOC: HO.MDS 07:10 | PROVIDERS: Visit Provider Internal Medicine Pulmonary Disease | DX: J45.50 Severe persistent asthma, uncomplicated (principal) | CPT/HCPCS: 96372; J2356 ==

== ENCOUNTER 2023-02-22 13:56 | Outpatient (AMB) | payer OTHER, SELFPAY ==
--- NOTE | 2023-02-22 14:21 | MHC.PC.OV ---
Vital Signs 02/22/23 14:22 Height 5 ft 5 in Weight 183 lb 4 oz BMI 30.5 BP 110/76 Blood Pressure Location Rt brachial Position Sitting Pulse 88 Pulse Source Pulse Oximeter Pulse Oximetry (%) 98 Oxygen Delivery Method Room Air Intake Visit Reasons: Annual PE Intake Note: Pt is here today for Annual PE Allergies tramadol [TRAMADOL] Allergy (Mild, Verified 09/07/23 23:38) RASH, Vomitting gabapentin [GABAPENTIN] Allergy (Unknown, Verified 09/07/23 23:38) UNKNOWN, rash, rash, vomiting Sulfa (Sulfonamide Antibiotics) [SULFA (SULFONAMIDE ANTIBIOTICS)] Allergy (Unknown, Verified 09/07/23 23:38) RASH, hives diphtheria,pertussis (acellular),te [TDAP] Adverse Reaction (Unknown, Verified 09/07/23 23:38) BODYACHES, NAUSEA morphine [MORPHINE] Adverse Reaction (Unknown, Verified 09/07/23 23:38) NAUSEA & VOMITING, N/V, vomiting Medication List - Last Reconciled 10/17/23 by Marleny Li MD albuterol sulfate 90 mcg/actuation (ProAir HFA) 2 puffs inhalation Q4-6H PRN 30 days duloxetine 60 mg PO DAILY famotidine 40 mg PO DAILY ibuprofen 800 mg PO .qd PRN ipratropium-albuterol 0.5 mg-3 mg(2.5 mg base)/3 mL 3 mL inhalation Q6H PRN lidocaine 5% (Lidoderm) 1 patch topical DAILY PRN MDD remove after 12 hours loratadine (Claritin) 10 mg PO DAILY PRN magnesium 250 mg PO DAILY montelukast 10 mg PO DAILY Symbicort 160-4.5 mcg/actuation (budesonide-formoterol) 2 puffs inhalation BID 30 days NS tezepelumab-ekko (Tezspire) mg subcut theophylline ER 400 mg PO DAILY 30 days tiotropium bromide 2.5 mcg/actuation (Spiriva Respimat) 2 puffs inhalation QAM 30 days umeclidinium 62.5 mcg/actuation (Incruse Ellipta) 1 inh inhalation DAILY 30 days Tobacco use date assessed: 02/22/23 Dental Screening Dental Screen Date: 02/22/23 Did you have a dental visit in the last 12 months?: No Was dental information given to patient?: Yes HPI Annual PE HPI Details 42-year-old lady here today for physical exam. She is overdue to get her screening mammogram and cervical cancer screening, previously was being seen at [facility]. Has had a screening colonoscopy done by Dr. Landa in 2012, due for repeat. Treated for GERD with famotidine. She is currently being followed by Pulmonary, Dr. Chan for severe persistent allergic asthma, with improving control after starting onTezspire, in addition to Duonebs, Symbicort, Spiriva, and theophylline. [facility] Medical History Elevated liver transaminase level GERD (gastroesophageal reflux disease) Gastritis Acalculous cholecystitis Obesity (BMI 30.0-34.9) Fibromyalgia Environmental allergies Asthma Surgical History History of colonoscopy H/O: hysterectomy Hx of cholecystectomy Family History Father No problems noted. Mother HTN (hypertension) Maternal Aunt Breast cancer Brother No problems noted. Sister No problems noted. Son Mental health disorder Son Mental health disorder Son Mental health disorder Social History Housing: House Alcohol intake: current Alcohol intake frequency: does not drink Patient Tobacco Use Status: Never used Tobacco e-Cigarette/Vaping Use: Never Used Second Hand Smoke Exposure: No service: No Current occupational status: unemployed Cognitive needs: No Hearing needs: No Vision needs: No Female Reproductive History Menstrual Menopause type: surgical Questionnaire PHQ-9 Over the last 2 weeks, how often have you been bothered by any of the following problems? 1. Little interest or pleasure in doing things: not at all 2. Feeling down, depressed, or hopeless: not at all 3. Trouble falling or staying asleep, or sleeping too much: several days 4. Feeling tired or having little energy: several days 5. Poor appetite or overeating: several days 6. Feeling bad about yourself - or that you are a failure or have let yourself or your family down: not at all 7. Trouble concentrating on things, such as reading the newspaper or watching television: not at all 8. Moving or speaking so slowly that other people could have noticed. Or the opposite - being so fidgety or restless that you have been moving around a lot more than usual: not at all 9. Thoughts that you would be better off or of hurting yourself in some way: not at all Total score: 3 Depression Screening Interpretation: Negative 13454 - PHQ-9 Billing: Yes Source: Developed by Drs. Mario Buitrago, Socorro Briggs, Kamlesh Yepez and colleagues, with an educational yue from [employer]. Thrive Questionnaire Date Thrive assessed: 02/22/23 I am a: Patient What is your living situation today?: I have a steady place to live Within the past 12 months, did the food you bought not last and you didn't have the money to get more?: Often true Within the past 12 months, did you worry whether your food would run out before you got money to buy more?: Often true Do you have trouble paying for medicines?: No Do you have trouble getting transportation to medical appointments?: No Do you have trouble paying your heating and electricity bill?: Yes Do you have trouble taking care of your child, family member or friend?: No Do you have trouble with day-to-day activities such as bathing, preparing meals, shopping, managing finances, etc.?: No Are you currently unemployed and looking for a job?: No Are you interested in more education?: No Please select the resources that you would like help with: Food and Utilities AUDIT C Alcohol Use Questionnaire (AUDIT-C) 1. How often do you have a drink containing alcohol?: Never Total Score: 0 IVY-7 AMB Questionnaire IVY-7 Date IVY - 7 assessed: 02/22/23 Feeling nervous, anxious, or on edge: 0 = Not at all Not being able to stop or control worryin = Not at all Worrying too much about different things: 0 = Not at all Trouble relaxin = Not at all Being so restless that it is hard to sit still: 0 = Not at all Becoming easily annoyed or irritable: 0 = Not at all Feeling afraid as if something awful might happen: 0 = Not at all Total IVY-7 score (0-4 normal; 5-9 mild; 10-14 moderate; 15-21 severe): 0 Source: Developed by Drs. Mario Buitrago, Socorro Briggs, Kamlesh Yepez and colleagues, with an educational yue from [employer]. IVY-7 Assessment Billing IVY-7 Assessment Tool: IVY-7 Assessment 75566 ACT Questionnaire In the past 4 weeks, how much of the time did your asthma keep you from getting as much done at work, school or at home?: Most of the time During the past 4 weeks, how often have you had shortness of breath?: Once a day During the past 4 weeks, how often did your asthma symptoms wake you up at night or earlier than usual in the morning?: 4 or more nights a week During the past 4 weeks, how often have you had to use your rescue inhaler or nebulizer medication?: More than 3 times per day How would you rate your asthma control during the past 4 weeks?: Poorly controlled Score: 8 Review of Systems Const Denies daytime sleepiness, Denies fever(s), Denies headache(s), Denies malaise, Denies night sweats, Denies snoring and Denies weight loss Eyes Denies change in vision ENT Denies dizziness, Denies headache(s), Denies nasal congestion, Denies post nasal drip, Denies sinus pain and Denies sinus pressure Card Denies chest pain, Denies pedal edema, Denies dyspnea and Denies orthopnea Resp Denies cough, Denies hemoptysis, Denies excessive phlegm production, Denies dyspnea, Denies snoring and Reports wheezing GI Denies abdominal pain and Denies heartburn Reports no additional complaints Musc Denies abnormal gait, Denies back pain, Denies myalgias, Reports arthralgias, Denies joint swelling, Denies muscle weakness and Reports stiffness Skin/Breast Denies breast pain, Denies breast mass and Denies rash Neuro Denies abnormal gait, Denies dizziness, Denies headache(s) and Denies seizure-like activity Psych Denies abnormal sleep pattern and Denies anxiety Endo Reports no additional complaints Mitchell/Lymph Denies easy bruising Aller/Immun Reports seasonal rhinorrhea and Reports wheezing Physical exam (Primary Care) Vital Signs: Last Vital Signs Pulse 88 02/22/23 14:22 BP 110/76 02/22/23 14:22 Pulse Ox 98 02/22/23 14:22 Oxygen Delivery Method Room Air 02/22/23 14:22 BMI result Body Mass Index 30.5 Tobacco/Smoking Status: Tobacco use Status Tobacco use date assessed 02/22/23 02/22/23 14:29 Patient Tobacco Use Status Never used Tobacco 02/22/23 14:29 e-Cigarette/Vaping Use Never Used 02/22/23 14:29 Depression Screening Interpretation: Negative Thrive Assessment: Date of Thrive Assessment Date Thrive assessed 12/22/21 02/22/23 14:29 Const Other: Alert oriented x3, no acute cardiorespiratory distress ambulatory with normal gait Orientation/consciousness: patient oriented x3 [facility] General nose exam: Normal external nose present, Normal nasal mucous membranes and turbinates present and No nasal discharge present Throat: Yes posterior oropharynx normal Neck Other: Supple, no lymphadenopathy, full range of motion, thyroid gland nonpalpable Chest Breast/axilla palpation: normal palpation of the breasts Resp Auscultation: clear to auscultation bilaterally Cardio Other: Has S1-S2 present regular rate and rhythm GI Palpation (GI): Soft to palpation, nontender, no guarding and no masses General: Yes no CVA tenderness Back/Spine/Pelvis Back: no CVA tenderness and No back tenderness Skin General skin exam: no rashes or lesions noted Neuro General: patient oriented x3, gait normal, tone normal, moves all extremities, Normal light touch and pain sensation, no focal motor deficits and CN's II-XI intact bilaterally Extrem General: Yes full ROM, Yes no joint enlargement, Yes no pedal edema, Yes no calf tenderness and Yes normal gait Psych Appearance: grossly normal and well kempt Mental Status: mental status grossly normal Speech and movement: Normal speech and movement present Affect: normal affect Assessment and Plan Assessment & Plan (1) Annual visit for general adult medical examination with abnormal findings: Code(s): Z00.01 - Encounter for general adult medical examination with abnormal findings Plan: Will check appropriate labs. Recommended dental visit every 6 months and regular eye exams, at least every 2 years. Take adequate calcium in diet and vitamin-D 3 at 2000 IU per cap once a day, in addition to weight-bearing exercises to help maintain good muscle tone and weight control. Instructed to do self-breast exam, and recommended to get yearly mammogram, ordered today. Has had a hysterectomy due to dysfunctional uterine bleeding. Reminded to get her COVID booster, up-to-date with Tdap, and pneumo coccal vaccination, reminded to get yearly flu shots. (2) Fibromyalgia: Code(s): M79.7 - Fibromyalgia Plan: Currently on duloxetine refill sent (3) GERD (gastroesophageal reflux disease): Code(s): K21.9 - Gastro-esophageal reflux disease without esophagitis Qualifiers: Esophagitis presence: without esophagitis Qualified Code(s): K21.9 - Gastro-esophageal reflux disease without esophagitis Plan: Currently on famotidine 40 mg daily, refill sent (4) Obesity (BMI 30.0-34.9): Code(s): E66.9 - Obesity, unspecified Plan: Discussed need to increase activity and wt reduction. Recommended focusing on improving your health instead of dieting. : Eat Mediterranean diet, limit foods high in fat, sugar, and calories, eat slowly, pay attention to portion sizes, plan your meals ahead of time, start regular physical activity 150 minutes of moderate intensity exercise or 90 minutes/week of vigorous exercise and increase water intake. (5) Environmental allergies: Code(s): Z91.09 - Other allergy status, other than to drugs and biological substances Plan: Continue with loratadine, has a dehumidifier at home (6) Severe persistent allergic asthma: Code(s): J45.50 - Severe persistent asthma, uncomplicated Plan: Currently on Symbicort, albuterol inhaler as needed and albuterol via nebulizer, on montelukast, and Tezspire injection, currently followed by Dr. Chan, gets yearly flu shots, reminded to get her COVID booster, up-to-date with her pneumonia vaccination and Tdap Orders: Orders Lipid Panel 02/22/23 M79.7 - Fibromyalgia, K21.9 - Gastro-esophageal reflux disease without esophagitis, E66.9 - Obesity, unspecified, J45.50 - Severe persistent asthma, uncomplicated, Z00.01 - Encounter for general adult medical examination with abnormal findings MM screening mammo BI 02/22/23 Z12.31 - Encounter for screening mammogram for malignant neoplasm of breast [facility] [place]. Panel Fast 02/22/23 M79.7 - Fibromyalgia, K21.9 - Gastro-esophageal reflux disease without esophagitis, E66.9 - Obesity, unspecified, J45.50 - Severe persistent asthma, uncomplicated, Z00.01 - Encounter for general adult medical examination with abnormal findings Vitamin D 25-OH Total 02/22/23 M79.7 - Fibromyalgia, K21.9 - Gastro-esophageal reflux disease without esophagitis, E66.9 - Obesity, unspecified, J45.50 - Severe persistent asthma, uncomplicated, Z00.01 - Encounter for general adult medical examination with abnormal findings Medications: New famotidine 40 mg PO DAILY 30 tabs 5RF K21.9 - Gastro-esophageal reflux disease without esophagitis duloxetine 60 mg PO DAILY 30 caps 5RF M79.7 - Fibromyalgia Changed From ibuprofen 800 mg PO Q8H 5 days 15 tabs 0RF To ibuprofen 800 mg PO .qd PRN 30 tabs 1RF pain Coding Level of Care Code Est Pt Prev Care 40-64y(29527) Diagnoses Annual visit for general adult medical examination with abnormal findings Z00.01 Fibromyalgia M79.7 Gastroesophageal reflux disease without esophagitis K21.9 Esophagitis presence: without esophagitis Obesity (BMI 30.0-34.9) E66.9 Environmental allergies Z91.09 Severe persistent allergic asthma J45.50 Additional Codes IVY-7 Assessment Billing - IVY-7 Assessment Tool: IVY-7 Assessment 75623 ([id number])
[2023-02-22 14:22] VITALS: BP 110/76; PULSE 88; O2SAT 98; BMI 30.5
== END 2023-02-22 16:18 | disposition home or self-care (01) ==
PROVIDERS: Visit Provider Internal Medicine
DX: Z00.01 Encounter for general adult medical examination with abnormal findings (principal); M79.7 Fibromyalgia; K21.9 Gastro-esophageal reflux disease without esophagitis; E66.9 Obesity, unspecified; Z91.09 Other allergy status, other than to drugs and biological substances; J45.50 Severe persistent asthma, uncomplicated
CPT/HCPCS: 99499

== ENCOUNTER 2023-03-07 09:47 | Outpatient (AMB) | payer OTHER, SELFPAY ==
[2023-03-07 09:57] VITALS: BP 110/7; PULSE 78; O2SAT 99; BMI 30.4
--- NOTE | 2023-03-07 09:57 | MHC.OFFVIS ---
Intake Vital Signs 03/07/23 09:57 Height 5 ft 5 in Weight 183 lb BMI 30.4 BP 110/7 L Blood Pressure Location Lt brachial Position Sitting Pulse 78 Pulse Oximetry (%) 99 Oxygen Delivery Method Room Air Intake Visit Reasons: [facility] Required: Yes Allergies tramadol [TRAMADOL] Allergy (Mild, Verified 02/22/23 14:44) RASH, Vomitting gabapentin [GABAPENTIN] Allergy (Unknown, Verified 02/22/23 14:44) UNKNOWN, rash, rash, vomiting Sulfa (Sulfonamide Antibiotics) [SULFA (SULFONAMIDE ANTIBIOTICS)] Allergy (Unknown, Verified 02/22/23 14:44) RASH, hives diphtheria,pertussis (acellular),te [TDAP] Adverse Reaction (Unknown, Verified 02/22/23 14:44) BODYACHES, NAUSEA morphine [MORPHINE] Adverse Reaction (Unknown, Verified 02/22/23 14:44) NAUSEA & VOMITING, N/V, vomiting HPI Asthma HPI Details 42-year-old lady, nonsmoker followed for severe persistent allergic asthma with multiple breakthrough episodes. ? She has been using Tezspire, Symbicort, theophylline, Singulair, and duo nebs /albuterol with acceptable, but suboptimal control of her symptoms, particularly right before her Tezspire injection. Her cough has significantly improved after the last course of level focus on, but has recently area, again productive of yellowish to greenish sputum. [facility] Medical History Acalculous cholecystitis Asthma Elevated liver transaminase level Environmental allergies Fibromyalgia Gastritis GERD (gastroesophageal reflux disease) Obesity (BMI 30.0-34.9) Surgical History (Updated 02/22/23 @ 14:59 by Marleny Li MD) H/O: hysterectomy History of colonoscopy Hx of cholecystectomy Family History Father No problems noted. Mother HTN (hypertension) Maternal Aunt Breast cancer Brother No problems noted. Sister No problems noted. Son Mental health disorder Son Mental health disorder Son Mental health disorder Social History Housing: House Alcohol intake: current Alcohol intake frequency: does not drink Patient Tobacco Use Status: Never used Tobacco e-Cigarette/Vaping Use: Never Used Second Hand Smoke Exposure: No service: No Current occupational status: unemployed Cognitive needs: No Hearing needs: No Vision needs: No Review of Systems Const Denies daytime sleepiness, Denies excessive sweating, Denies fatigue, Denies fever(s), Denies lethargy, Denies malaise, Denies night sweats, Denies snoring and Denies weight loss Eyes Denies blurry vision and Denies itchy eyes ENT Denies nasal congestion, Denies post nasal drip, Denies sinus pain, Denies sinus pressure and Denies other ( Thrush) Card Denies chest pain, Denies pedal edema, Denies dyspnea, Denies orthopnea and Denies paroxysmal nocturnal dyspnea Resp Reports cough, Denies hemoptysis, Reports excessive phlegm production, Denies dyspnea, Denies snoring and Denies wheezing GI Denies abdominal pain and Denies heartburn Musc Denies myalgias, Denies arthralgias and Denies joint swelling Skin/Breast Denies rash Neuro Denies memory loss and Denies seizure-like activity Psych Denies abnormal sleep pattern, Denies anxiety and Denies memory loss Endo Denies excessive sweating, Denies fatigue and Denies heat intolerance Mitchell/Lymph Denies easy bruising Aller/Immun Denies itchy eyes, Denies seasonal rhinorrhea and Denies wheezing Physical Exam Vital Signs: Last Vital Signs Pulse 78 03/07/23 09:57 BP 110/7 L 03/07/23 09:57 Pulse Ox 99 03/07/23 09:57 Oxygen Delivery Method Room Air 03/07/23 09:57 BMI result Body Mass Index 30.4 Const General: no acute distress and alert Nutritional Appearance: not obese Orientation/consciousness: Other orientation findings ( oriented) HEENT Head: Yes atraumatic Eyes General: appearance normal, both eyes and all related structures Sclerae: sclerae normal EOM: EOMs intact bilaterally Neck Neck: Yes supple Lymphatic: no lymphadenopathy noted Resp Effort & Inspection: normal respiratory effort and no use of accessory muscles Auscultation: clear to auscultation bilaterally Cardio Rate: regular rate Rhythm: regular rhythm Heart sounds: no gallops, no murmurs and no rubs Skin General skin exam: other ( warm) Extrem General: No clubbing, No cyanosis and No edema Assessment & Plan Assessment & Plan (1) Severe persistent allergic asthma: Code(s): J45.50 - Severe persistent asthma, uncomplicated Plan: Significantly improved, however status suboptimal control 1 week prior to Tezspire injection. Will add medium-dose prednisone for 1 week before the injections. Continue baseline regimen of Tezspire, theophylline, Spiriva, Symbicort, duo nebs, and albuterol MDI. Will treat productive cough with a course of levofloxacin. (2) Environmental allergies: Code(s): Z91.09 - Other allergy status, other than to drugs and biological substances Plan: Improved control on Tezspire. Continue current regimen. Medications: New levofloxacin 750 mg PO DAILY 10 tabs 0RF prednisone 20 mg PO DAILY 8 tabs 12RF 8 days Coding Level of Care Code Est Pt Level 4 (05794) Diagnoses Severe persistent allergic asthma J45.50 Environmental allergies Z91.09
== END 2023-03-07 10:10 | disposition home or self-care (01) ==
PROVIDERS: PCP Internal Medicine; Visit Provider Internal Medicine Pulmonary Disease
DX: J45.50 Severe persistent asthma, uncomplicated (principal); Z91.09 Other allergy status, other than to drugs and biological substances
CPT/HCPCS: 99214

== ENCOUNTER → 2023-03-07 09:47 | Outpatient (BNVA) | payer OTHER, SELFPAY | PROVIDERS: PCP Internal Medicine; Visit Provider Internal Medicine Pulmonary Disease | DX: J45.50 Severe persistent asthma, uncomplicated (principal); Z91.09 Other allergy status, other than to drugs and biological substances | CPT/HCPCS: 99212 ==

== ENCOUNTER 2023-03-08 06:57 | Outpatient (REF) | payer OTHER, SELFPAY | END 2023-03-08 06:58 | disposition home or self-care (01) | LOC: HO.MDS 06:57 | PROVIDERS: Visit Provider Internal Medicine Pulmonary Disease | DX: J45.50 Severe persistent asthma, uncomplicated (principal) | CPT/HCPCS: 96372; J2356 ==

== ENCOUNTER 2023-03-29 07:50 | Outpatient (REF) | payer OTHER, SELFPAY ==
--- NOTE | ~2023-03-29 | MM_ITS ---
EXAMINATION: MM SCREENING DIGITAL BREAST TOMOSYNTHESIS, BILATERAL CLINICAL INFORMATION: Screening. Asymptomatic. COMPARISON: Mammography: There are no prior mammograms available for comparison in the last 14 years. TECHNIQUE: Digital breast tomosynthesis is performed in both the craniocaudal and mediolateral oblique views along with computer-aided detection (CAD). Synthesized 2D images are generated from the tomosynthesis. FINDINGS: There are scattered areas of fibroglandular density (ACR BI-RADS breast composition Category b). There are no significant masses, abnormal calcifications, or other abnormalities. MM/MM tomosynthesis screening BI IMPRESSION: No mammographic evidence of malignancy. ASSESSMENT: BI-RADS BI-RADS 1 - Negative RECOMMENDATION: Routine annual mammography screening. 1 year F/U This examination should not preclude the clinical evaluation of a suspicious palpable abnormality. This patient's information was entered into a reminder system with a target due date for their next mammogram.
== END 2023-03-29 07:51 | disposition home or self-care (01) ==
LOC: HO.MAMMO 07:50
PROVIDERS: PCP Internal Medicine; Visit Provider Internal Medicine
DX: Z12.31 Encounter for screening mammogram for malignant neoplasm of breast (principal)
CPT/HCPCS: 77063; 77067

== ENCOUNTER → 2023-03-29 08:15 | Outpatient (BNV) | payer OTHER, SELFPAY | PROVIDERS: PCP Internal Medicine; Visit Provider Radiology Diagnostic Radiology | DX: Z12.31 Encounter for screening mammogram for malignant neoplasm of breast (principal) | CPT/HCPCS: 77063; 77067 ==

== ENCOUNTER 2023-04-05 07:04 | Outpatient (REF) | payer OTHER, SELFPAY | END 2023-04-05 07:05 | disposition home or self-care (01) | LOC: HO.MDS 07:04 | PROVIDERS: Visit Provider Internal Medicine Pulmonary Disease | DX: J45.50 Severe persistent asthma, uncomplicated (principal) | CPT/HCPCS: 96372 ==

== ENCOUNTER 2023-04-09 13:11 | Outpatient (AMB) | payer OTHER, SELFPAY ==
[2023-04-09 13:13] VITALS: BP 109/70; PULSE 108; TEMP 36.3; O2SAT 97; BMI 30.8
--- NOTE | 2023-04-09 13:13 | A.OFFVIS_ITS ---
Intake Vital Signs 04/09/23 13:13 Height 5 ft 5 in Weight 185 lb BMI 30.8 BP 109/70 Blood Pressure Location Rt brachial Position Sitting Pulse 108 H Pulse Source Doppler Temp 97.4 F Temp Source Temporal Artery Scan Pulse Oximetry (%) 97 Oxygen Delivery Method Room Air Intake Visit Reasons: sick visit Allergies tramadol [TRAMADOL] Allergy (Mild, Verified 04/09/23 13:22) RASH, Vomitting gabapentin [GABAPENTIN] Allergy (Unknown, Verified 04/09/23 13:22) UNKNOWN, rash, rash, vomiting Sulfa (Sulfonamide Antibiotics) [SULFA (SULFONAMIDE ANTIBIOTICS)] Allergy (Unknown, Verified 04/09/23 13:22) RASH, hives diphtheria,pertussis (acellular),te [TDAP] Adverse Reaction (Unknown, Verified 04/09/23 13:22) BODYACHES, NAUSEA morphine [MORPHINE] Adverse Reaction (Unknown, Verified 04/09/23 13:22) NAUSEA & VOMITING, N/V, vomiting HPI sick visit HPI Details 42-year-old lady, nonsmoker followed for severe persistent allergic asthma with multiple breakthrough episodes. ? She has been using Tezspire, Symbicort, theophylline, Singulair, and duo nebs /albuterol with acceptable, but suboptimal control of her symptoms, particularly right before her Tezspire injection. Unfortunately, after the last Tezspire injection she started getting worse symptoms, similar to her prior reaction to other agents used for immune therapy of asthma. Now she is presenting with an acute exacerbation symptomatic with significant wheezing and poor air movement. [facility] Medical History Elevated liver transaminase level GERD (gastroesophageal reflux disease) Gastritis Acalculous cholecystitis Obesity (BMI 30.0-34.9) Fibromyalgia Environmental allergies Asthma Surgical History (Updated 02/22/23 @ 14:59 by Marleny Li MD) History of colonoscopy H/O: hysterectomy Hx of cholecystectomy Family History Father No problems noted. Mother HTN (hypertension) Maternal Aunt Breast cancer Brother No problems noted. Sister No problems noted. Son Mental health disorder Son Mental health disorder Son Mental health disorder Social History (Reviewed 04/09/23 @ 13:23 by LUIS Humphrey Housing: House Alcohol intake: current Alcohol intake frequency: does not drink Patient Tobacco Use Status: Never used Tobacco e-Cigarette/Vaping Use: Never Used Second Hand Smoke Exposure: No service: No Current occupational status: unemployed Cognitive needs: No Hearing needs: No Vision needs: No Review of Systems Const Denies daytime sleepiness, Denies excessive sweating, Denies fatigue, Denies fever(s), Denies lethargy, Denies malaise, Denies night sweats, Denies snoring and Denies weight loss Eyes Denies blurry vision and Denies itchy eyes ENT Denies nasal congestion, Denies post nasal drip, Denies sinus pain, Denies sinus pressure and Denies other ( Thrush) Card Denies chest pain, Denies pedal edema, Denies dyspnea, Reports dyspnea on exertion, Denies orthopnea and Denies paroxysmal nocturnal dyspnea Resp Denies cough, Denies hemoptysis, Denies excessive phlegm production, Denies dyspnea, Reports dyspnea on exertion, Denies snoring and Reports wheezing GI Denies abdominal pain and Denies heartburn Musc Denies myalgias, Denies arthralgias and Denies joint swelling Skin/Breast Denies rash Neuro Denies memory loss and Denies seizure-like activity Psych Denies abnormal sleep pattern, Denies anxiety and Denies memory loss Endo Denies excessive sweating, Denies fatigue and Denies heat intolerance Mitchell/Lymph Denies easy bruising Aller/Immun Denies itchy eyes, Denies seasonal rhinorrhea and Reports wheezing Physical Exam Vital Signs: Last Vital Signs Temp 97.4 F 04/09/23 13:13 Pulse 108 H 04/09/23 13:13 BP 109/70 04/09/23 13:13 Pulse Ox 97 04/09/23 13:13 Oxygen Delivery Method Room Air 04/09/23 13:13 BMI result Body Mass Index 30.8 Const General: no acute distress and alert Nutritional Appearance: not obese Orientation/consciousness: Other orientation findings ( oriented) HEENT Head: Yes atraumatic Eyes General: appearance normal, both eyes and all related structures Sclerae: sclerae normal EOM: EOMs intact bilaterally Neck Neck: Yes supple Lymphatic: no lymphadenopathy noted Resp Effort & Inspection: normal respiratory effort and no use of accessory muscles Auscultation: wheezes expiratory wheezes (Diffuse bilateral) and other (Poor air movement throughout) Cardio Rate: regular rate Rhythm: regular rhythm Heart sounds: no gallops, no murmurs and no rubs Skin General skin exam: other ( warm) Extrem General: No clubbing, No cyanosis and No edema Office Procedures Nebulizer Treatment Nebulizer Treatment 75691-Yagudxfia/MDI RX initial, or Nebulizer Subsequent Treatment Office Meds methylprednisolone sod suc(PF) 125 mg/2 mL solution for injection Performing Provider: Steve Chan MD Performing Location: [facility] Administered by: Mindi Crowder LPN on 04/09/23 13:58 Dose Route Admin Location Dispensed Lot Number Expiration Date [facility] Media Super[employer] 125 mg IM R buttock 2 mL [id number] 04/28/25 2291-3243-61 [employer] ipratropium 0.5 mg-albuterol 3 mg (2.5 mg base)/3 mL nebulization soln Performing Provider: Steve Chan MD Performing Location: [facility] Administered by: Mindi Crowder LPN on 04/09/23 13:58 Dose Route Admin Location Dispensed Lot Number Expiration Date [facility] Media Supervisor 3 mL inhalation 3 mL [id number] 07/29/24 6084-7509-10 [facility] Assessment & Plan Assessment & Plan (1) Severe persistent allergic asthma: Code(s): J45.50 - Severe persistent asthma, uncomplicated Plan: Acute exacerbation that started after Tezspire injection, similar to her prior history of eventually developing allergic reactions to asthma immunologic agents to treat asthma. Will pause Tezspire at this time. Will treat with a prolonged prednisone taper. Continue baseline regimen of Symbicort, Spiriva, theophylline, albuterol MDI/DuoNebs. Some symptomatic improvement with DuoNeb treatment/Solu-Medrol administered in office. (2) Environmental allergies: Code(s): Z91.09 - Other allergy status, other than to drugs and biological substances Plan: Appears to be developing and allergic reaction to Tezspire. Will pause Tezspire. Continue Singulair. Orders: Orders AMB Nebulizer Treatment Today J45.50 - Severe persistent asthma, uncomplicated AMB Methylprednisolone Injection Today J45.50 - Severe persistent asthma, uncomplicated Medications: New prednisone Take four tabs daily for 7 days, then go down by 1 tab every 7 days. 10 mg PO DIRECTED 70 tabs 0RF Coding Level of Care Code Est Pt Level 4 (05151) Diagnoses Severe persistent allergic asthma J45.50 Environmental allergies Z91.09 CPT Codes Nebulizer Treatment - Nebulizer Treatment, initial or subsequent: 68380- Nebulizer/MDI RX initial, or Nebulizer Subsequent Treatment ([id number])
== END 2023-04-09 14:12 | disposition home or self-care (01) ==
PROVIDERS: PCP Internal Medicine; Visit Provider Internal Medicine Pulmonary Disease
DX: J45.50 Severe persistent asthma, uncomplicated (principal); Z91.09 Other allergy status, other than to drugs and biological substances
CPT/HCPCS: 99214

== ENCOUNTER → 2023-04-09 13:11 | Outpatient (BNVA) | payer OTHER, SELFPAY | PROVIDERS: PCP Internal Medicine; Visit Provider Internal Medicine Pulmonary Disease | DX: J45.50 Severe persistent asthma, uncomplicated (principal); Z91.09 Other allergy status, other than to drugs and biological substances; Z79.899 Other long term (current) drug therapy | CPT/HCPCS: 94640; 96372; 99212; J2930 ==

== ENCOUNTER 2023-05-16 09:22 | Outpatient (AMB) | payer OTHER, SELFPAY ==
[2023-05-16 09:23] VITALS: BP 90/58; PULSE 93; O2SAT 98; BMI 30.6
--- NOTE | 2023-05-16 09:23 | A.OFFVIS_ITS ---
Intake Vital Signs 05/16/23: Height 5 ft 5 in Weight 184 lb 1.376 oz BMI 30.6 BP 90/58 L Blood Pressure Location Lt brachial Position Sitting Pulse 93 Pulse Source Doppler Pulse Oximetry (%) 98 Oxygen Delivery Method Room Air Intake Visit Reasons: Asthma Allergies tramadol [TRAMADOL] Allergy (Mild, Verified 05/16/23 09:) RASH, Vomitting gabapentin [GABAPENTIN] Allergy (Unknown, Verified 05/16/23:) UNKNOWN, rash, rash, vomiting Sulfa (Sulfonamide Antibiotics) [SULFA (SULFONAMIDE ANTIBIOTICS)] Allergy (Unknown, Verified 05/16/23) RASH, hives diphtheria,pertussis (acellular),te [TDAP] Adverse Reaction (Unknown, Verified 05/16/23) BODYACHES, NAUSEA morphine [MORPHINE] Adverse Reaction (Unknown, Verified 05/16/23) NAUSEA & VOMITING, N/V, vomiting HPI Asthma HPI Details 43-year-old lady, nonsmoker followed for severe persistent allergic asthma with multiple breakthrough episodes. ? She has been using Tezspire, Symbicort, theophylline, Singulair, and duo nebs /albuterol with acceptable, but suboptimal control of her symptoms, particularly right before her Tezspire injection. Unfortunately, after the last Tezspire injection she started getting worse symptoms, similar to her prior reaction to other agents used for immune therapy of asthma. Some improvement prednisone taper. Though chronically symptoms are not well controlled. [facility] Medical History Elevated liver transaminase level GERD (gastroesophageal reflux disease) Gastritis Acalculous cholecystitis Obesity (BMI 30.0-34.9) Fibromyalgia Environmental allergies Asthma Surgical History (Updated 02/22/23 @ 14:59 by Marleny Li MD) History of colonoscopy H/O: hysterectomy Hx of cholecystectomy Family History Father No problems noted. Mother HTN (hypertension) Maternal Aunt Breast cancer Brother No problems noted. Sister No problems noted. Son Mental health disorder Son Mental health disorder Son Mental health disorder Social History Housing: House Alcohol intake: current Alcohol intake frequency: does not drink Patient Tobacco Use Status: Never used Tobacco e-Cigarette/Vaping Use: Never Used Second Hand Smoke Exposure: No service: No Current occupational status: unemployed Cognitive needs: No Hearing needs: No Vision needs: No Review of Systems Const Denies daytime sleepiness, Denies excessive sweating, Denies fatigue, Denies fever(s), Denies lethargy, Denies malaise, Denies night sweats, Denies snoring and Denies weight loss Eyes Denies blurry vision and Denies itchy eyes ENT Denies nasal congestion, Denies post nasal drip, Denies sinus pain, Denies sinus pressure and Denies other ( Thrush) Card Denies chest pain, Denies pedal edema, Denies dyspnea, Denies orthopnea and Denies paroxysmal nocturnal dyspnea Resp Denies cough, Denies hemoptysis, Denies excessive phlegm production, Denies dyspnea, Denies snoring and Reports wheezing GI Denies abdominal pain and Denies heartburn Musc Denies myalgias, Denies arthralgias and Denies joint swelling Skin/Breast Denies rash Neuro Denies memory loss and Denies seizure-like activity Psych Denies abnormal sleep pattern, Denies anxiety and Denies memory loss Endo Denies excessive sweating, Denies fatigue and Denies heat intolerance Mitchell/Lymph Denies easy bruising Aller/Immun Denies itchy eyes, Denies seasonal rhinorrhea and Reports wheezing Physical Exam Vital Signs: Last Vital Signs Pulse 93 05/16/23 09:23 BP 90/58 L 05/16/23 09:23 Pulse Ox 98 05/16/23 09:23 Oxygen Delivery Method Room Air 05/16/23 09:23 BMI result Body Mass Index 30.6 Const General: no acute distress and alert Nutritional Appearance: not obese Orientation/consciousness: Other orientation findings ( oriented) HEENT Head: Yes atraumatic Eyes General: appearance normal, both eyes and all related structures Sclerae: sclerae normal EOM: EOMs intact bilaterally Neck Neck: Yes supple Lymphatic: no lymphadenopathy noted Resp Effort & Inspection: normal respiratory effort and no use of accessory muscles Auscultation: clear to auscultation bilaterally Cardio Rate: regular rate Rhythm: regular rhythm Heart sounds: no gallops, no murmurs and no rubs Skin General skin exam: other ( warm) Extrem General: No clubbing, No cyanosis and No edema Assessment & Plan Assessment & Plan (1) Severe persistent allergic asthma: Code(s): J45.50 - Severe persistent asthma, uncomplicated Plan: Allergic reaction to Tezspire. Will switch to Fasenra. Continue baseline regimen of Symbicort, Incruse, duo nebs, theophylline, and albuterol MDI. (2) Environmental allergies: Code(s): Z91.09 - Other allergy status, other than to drugs and biological substances Plan: Expect to improve on Fasenra. Coding Level of Care Code Est Pt Level 4 (63629) Diagnoses Severe persistent allergic asthma J45.50 Environmental allergies Z91.09
== END 2023-05-16 09:42 | disposition home or self-care (01) ==
PROVIDERS: PCP Internal Medicine; Visit Provider Internal Medicine Pulmonary Disease
DX: J45.50 Severe persistent asthma, uncomplicated (principal); Z91.09 Other allergy status, other than to drugs and biological substances
CPT/HCPCS: 99214

== ENCOUNTER → 2023-05-16 09:22 | Outpatient (BNVA) | payer OTHER, SELFPAY | PROVIDERS: PCP Internal Medicine; Visit Provider Internal Medicine Pulmonary Disease | DX: J45.50 Severe persistent asthma, uncomplicated (principal); Z91.09 Other allergy status, other than to drugs and biological substances | CPT/HCPCS: 99212 ==

== ENCOUNTER 2023-06-04 07:14 | Outpatient (REF) | payer OTHER, SELFPAY | END 2023-06-04 07:15 | disposition home or self-care (01) | LOC: HO.MDS 07:14 | PROVIDERS: Visit Provider Internal Medicine Pulmonary Disease | DX: J45.50 Severe persistent asthma, uncomplicated (principal) | CPT/HCPCS: 96372 ==

== ENCOUNTER 2023-07-02 07:33 | Outpatient (REF) | payer OTHER, SELFPAY | END 2023-07-02 07:34 | disposition home or self-care (01) | LOC: HO.MDS 07:33 | PROVIDERS: PCP Internal Medicine; Visit Provider Internal Medicine Pulmonary Disease | DX: J45.50 Severe persistent asthma, uncomplicated (principal) | CPT/HCPCS: 96372 ==

== ENCOUNTER 2023-07-31 07:11 | Outpatient (REF) | payer OTHER, SELFPAY | END 2023-07-31 07:12 | disposition home or self-care (01) | LOC: HO.MDS 07:11 | PROVIDERS: Visit Provider Internal Medicine Pulmonary Disease | DX: J45.50 Severe persistent asthma, uncomplicated (principal) | CPT/HCPCS: 96372; J0517 ==

== ENCOUNTER 2023-08-10 08:28 | Emergency (ER) | payer OTHER, SELFPAY ==
[2023-08-10 08:33] VITALS: BP 115/71; PULSE 87; RESP 17; TEMP 36.6; O2SAT 99; BMI 30.8
--- NOTE | 2023-08-10 09:16 | ED_ITS ---
HPI - General Adult General Chief complaint: Abdominal Pain Stated complaint: heavy pain on side Time Seen by Provider: 08/10/23 08:57 History of Present Illness HPI narrative: The patient states that she woke up this morning suddenly at around 03:00 because her son was having a medical problem. She says that she woke up suddenly and was feeling very anxious and she had pain in her left upper abdomen just under her left rib cage. She says that at 1st she thought the pain was an anxiety reaction from waking up so suddenly and finding her son was having a medical problem. She drove her son to the emergency room here and at around 05:45 she then picked him up from the emergency room. However she continued to have this pain and she then checked herself into the emergency room. She says that she says that it feels somewhat like the pain that she had when she had her gallbladder removed but on that occasion her pain was on the right side as opposed to the left side. The patient has a history of significant asthma. She does not feel like this pain is anything to do with her lungs. She has not on control pills. Related Data Home Medications Medication Instructions Recorded Confirmed montelukast 10 mg tablet 10 mg PO DAILY 07/01/20 02/22/23 Previous Rx's Medication Instructions Recorded lidocaine 5 % topical patch 1 patch topical DAILY PRN pain #30 12/21/20 (Lidoderm) ea loratadine 10 mg tablet (Claritin) 10 mg PO DAILY PRN allergies #10 02/24/21 tabs Symbicort 160 mcg-4.5 2 puff inhalation BID 30 days 09/14/22 mcg/actuation HFA aerosol inhaler #10.2 grams (budesonide-formoterol) albuterol sulfate 90 mcg/actuation 2 puff inhalation Q4-6H PRN 09/14/22 aerosol inhaler (ProAir HFA) shortness of breath or wheezing 30 days #8.5 grams ipratropium 0.5 mg-albuterol 3 mg 3 ml inhalation Q6H PRN for 09/14/22 (2.5 mg base)/3 mL nebulization wheezing #180 mL soln theophylline 400 mg 400 mg PO DAILY 30 days #30 tabs 09/14/22 tablet,extended release 24 hr umeclidinium 62.5 mcg/actuation 1 inh inhalation DAILY 30 days #1 09/14/22 blister powder for inhalation ea (Incruse Ellipta) tiotropium bromide 2.5 2 puff inhalation QAM 30 days #4 12/05/22 mcg/actuation mist for inhalation grams (Spiriva Respimat) duloxetine 60 mg capsule,delayed 60 mg PO DAILY #30 caps 02/22/23 release famotidine 40 mg tablet 40 mg PO DAILY #30 tabs 02/22/23 ibuprofen 800 mg tablet 800 mg PO .qd PRN pain #30 tabs 02/22/23 levofloxacin 750 mg tablet 750 mg PO DAILY #10 tabs 03/07/23 prednisone 20 mg tablet 20 mg PO DAILY 8 days #8 tabs 03/07/23 prednisone 10 mg tablet 10 mg PO DIRECTED #70 tabs 04/09/23 benralizumab 30 mg/mL subcutaneous 30 mg subcut Q8W 28 days #1 mL 05/22/23 syringe (Fasenra) omeprazole 40 mg capsule,delayed 40 mg PO DAILY #30 caps 08/10/23 release sucralfate 1 gram tablet 1 g PO TID PRN abdominal pain #60 08/10/23 tabs Allergies Allergy/AdvReac Type Severity Reaction Status Date / Time tramadol [TRAMADOL] Allergy Mild RASH, Verified 08/10/23 08:33 Vomitting gabapentin [GABAPENTIN] Allergy Unknown UNKNOWN, Verified 08/10/23 08:33 rash, rash, vomiting Sulfa (Sulfonamide Allergy Unknown RASH, hives Verified 08/10/23 08:33 Antibiotics) [SULFA (SULFONAMIDE ANTIBIOTICS)] diphtheria,pertussis AdvReac Unknown BODYACHES, Verified 08/10/23 08:33 (acellular),te NAUSEA [TDAP] morphine [MORPHINE] AdvReac Unknown NAUSEA & Verified 08/10/23 08:33 VOMITING, N/V, vomiting Review of Systems 2 Review of Systems: Yes all other systems are reviewed and are negative PMFSH Past Medical History Onset Date is defined in the Problem List Problems that require an onset date and time if occurred within 24 hrs of arrival to the ED Aortic Dissection and Rupture; Neurologic impairment; Cardiopulmonary Arrest; Endotracheal Intubation; Insertion or Replacement of Mechanical Circulatory Assist Device Medical History (Updated 08/10/23 @ 12:11 by Jose Daniel Lee MD) Elevated liver transaminase level GERD (gastroesophageal reflux disease) Gastritis Acalculous cholecystitis Obesity (BMI 30.0-34.9) Fibromyalgia Environmental allergies Asthma Surgical History (Updated 02/22/23 @ 14:59 by Marleny Li MD) History of colonoscopy H/O: hysterectomy Hx of cholecystectomy Family History Family History Father No problems noted. Mother HTN (hypertension) Maternal Aunt Breast cancer Brother No problems noted. Sister No problems noted. Son Mental health disorder Son Mental health disorder Son Mental health disorder Social History Social History Housing: House Alcohol intake: current Alcohol intake frequency: does not drink Patient Tobacco Use Status: Never used Tobacco e-Cigarette/Vaping Use: Never Used Second Hand Smoke Exposure: No Advance Directives: No Advance Directives Information Provided: Yes service: No Current occupational status: unemployed Cognitive needs: No Hearing needs: No Vision needs: No Physical Exam ED Vital Signs: Vital Signs - 24 hr 08/10/23 08:33 08/10/23 12:29 Temperature 98 F Pulse Rate 87 78 Respiratory Rate 17 18 Blood Pressure 115/71 123/86 Pulse Oximetry 99 98 Oxygen Delivery Method Room Air Room Air BMI result Body Mass Index 30.8 Const Other: The patient is awake and alert. She does not appear in overt distress. HENMT Other: The face is symmetrical. Mucous membranes moist. Eyes Other: Pupils are round equal, conjunctivae are clear, extraocular movements intact. Neck Other: Moving her neck easily. No adenopathy. Chest Other: The patient seemed to tender at the left costal margin. Palpation seemed to reproduce her pain Resp Other: Breath sounds are clear and equal throughout. No wheezing. No increased work of breathing. Cardio Other: The patient had a regular rate and rhythm no murmur. GI Other: The abdomen is soft. She has diffuse abdominal tenderness both in the left upper quadrant and the right lower quadrant. No focal rebound or guarding. Skin Other: Skin is warm and dry. Neuro Other: The patient is awake, alert, oriented appropriate, grossly neurologically intact. Extrem Other: No peripheral edema. No calf swelling or tenderness. No calf asymmetry. Medications Administered Discontinued Medications Generic Name Dose Route Start Last Admin Trade Name Freq PRN Reason Stop Dose Admin Al Hydroxide/Mg Hydroxide 60 ml 08/10/23 09:17 08/10/23 09:47 Magnesium Hydrox/Alum Hydrox 30 Ml Oral.Susp PO 08/10/23 09:18 60 ml ONCE ONE Administration Ketorolac Tromethamine 30 mg 08/10/23 09:18 08/10/23 09:47 Ketorolac Tromethamine 30 Mg/Ml Vial IM 08/10/23 09:19 30 mg ONCE ONE Administration Medical Decision Making Medical Decision Making [facility] Narrative: The patient is a 43-year-old woman who presents with left-sided pain that began at 03:00 this morning when she woke up suddenly because her son was having a medical problem. Describes having left upper quadrant abdominal pain. On exam she has some diffuse abdominal tenderness but a nonsurgical abdomen. She also has a lot of tenderness at the left costal margin. Whether this pain is a musculoskeletal pain related to the costal margin or whether this might be some kind of gastritis would be my primary differential diagnosis. The patient was given 60 mL of Maalox orally and an IM injection of ketorolac. She seemed to feel somewhat better. I spoke to her as to whether she thought the problem was more in her ribcage or in her abdomen and ultimately she thought this was more of a abdominal problem than a ribcage problem. I suspect she probably has some degree of gastritis. She will be prescribed omeprazole and sucralfate and should follow up with the regular doctor. She should return to the emergency room if worse. Lab Data 08/10/23 11:00 08/10/23 11:00 Labs: Lab Results 08/10/23 Range/Units 11:00 WBC 6.9 (4.8-10.8) X10*3/uL RBC 5.15 (4.20-5.50) X10*6/uL Hgb 15.5 (12.0-16.0) g/dl Hct 46.1 (37.0-47.0) % MCV 89.5 (80.0-98.0) fL MCH 30.1 (27.0-33.0) pg MCHC 33.6 (31.0-35.0) g/dl RDW 12.8 (11.0-16.0) % Plt Count 243 (160-400) X10*3/uL MPV 9.6 (9.4-12.3) fL Immature Gran % (Auto) 0.1 (0.0-0.4) % Neut % (Auto) 57.9 (45-73) % Lymph % (Auto) 35.2 (20-40) % [place] % (Auto) 6.5 (2-11) % Eos % (Auto) 0.0 (0-4) % Baso % (Auto) 0.3 (0-2) % Lymph # (Auto) 2.4 (1.2-4.9) X10*3/uL [place] # (Auto) 0.5 (0.1-1.2) X10*3/uL Eos # (Auto) 0.0 (0.0-0.4) X10*3/uL Baso # (Auto) 0.0 (0.0-0.2) X10*3/uL Abs Immat Gran (auto) 0.01 (0.00-0.03) X10*3/uL Absolute Neuts (auto) 4.0 (2.0-8.3) x10*3/uL Absolute Nucleated RBC 0.000 (0.0-0.012) X10*3/uL Nucleated RBC % (auto) 0.0 (0.0-0.2) /100WBC Sodium 138 (135-145) mmol/L Potassium 4.1 (3.3-5.1) mmol/L Chloride 104 (96-108) mmol/L Carbon Dioxide 26 (22-29) mmol/L Anion Gap 12 (12-20) BUN 10 (9-16) mg/dL Creatinine 0.78 (0.5-1.4) mg/dL Estim Creat Clear Calc 100.5 Estimated GFR > 60 Random Glucose 91 (60-115) mg/dL Calcium 9.6 (8.4-10.2) mg/dL Total Bilirubin 0.4 (0.0-1.0) mg/dL Direct Bilirubin 0.1 (0.0-0.5) mg/dL AST 49 H (5-31) U/L ALT 86 H (0-31) U/L Alkaline Phosphatase 75 (39-117) U/L C-Reactive Protein 0.14 (< or = 0.50) mg/dL Total Protein 7.9 (6.5-8.0) g/dL Albumin 4.4 (3.5-5.0) g/dL Lipase 23 (8-78) U/L Discharge Plan Discharge Clinical Impression: Acute epigastric pain Patient Disposition: Home, Self-Care Instructions: Gastritis (ED) Additional Instructions: I think your pain is most likely from a condition that we called gastritis. This is an irritation of the lining of the stomach which is related to stomach acid production. Please take the omeprazole once a day on a regular basis. In addition you may also use the sucralfate up to 3 times a day on an as-needed basis. Please follow-up soon with your regular doctor to discuss this further. Return to the emergency room if significantly worse. Prescriptions: New omeprazole 40 mg capsule,delayed release(DR/EC) 40 mg PO DAILY Qty: 30 0RF sucralfate 1 gram tablet 1 g PO TID PRN (Reason: abdominal pain) Qty: 60 0RF No Action Incruse Ellipta 62.5 mcg/actuation blister with device 1 inh inhalation DAILY 30 Days Qty: 1 6RF theophylline 400 mg tablet extended release 24 hr 400 mg PO DAILY 30 Days Qty: 30 6RF budesonide-formoterol [Symbicort] 160-4.5 mcg/actuation HFA aerosol inhaler 2 puff inhalation BID 30 Days Qty: 10.2 6RF ipratropium-albuterol 0.5 mg-3 mg(2.5 mg base)/3 mL solution for nebulization 3 ml inhalation Q6H PRN (Reason: for wheezing) Qty: 180 6RF albuterol sulfate [ProAir HFA] 90 mcg/actuation HFA aerosol inhaler 2 puff inhalation Q4-6H PRN (Reason: shortness of breath or wheezing) 30 Days Qty: 8.5 6RF Fasenra 30 mg/mL syringe 30 mg subcut Q8W 28 Days Qty: 1 12RF Rx Instructions: initially 30 mg subcutaneously every 4 weeks x3, then 30 mg subcutaneously every 8 weeks loratadine [Claritin] 10 mg tablet 10 mg PO DAILY PRN (Reason: allergies) Qty: 10 0RF montelukast 10 mg tablet 10 mg PO DAILY lidocaine [Lidoderm] 5 % adhesive patch,medicated 1 patch topical DAILY MDD remove after 12 hours PRN (Reason: pain) Qty: 30 3RF Rx Instructions: leave on most painful area for up to 12 hrs duloxetine 60 mg capsule,delayed release(DR/EC) 60 mg PO DAILY Qty: 30 5RF famotidine 40 mg tablet 40 mg PO DAILY Qty: 30 5RF ibuprofen 800 mg tablet 800 mg PO .qd PRN (Reason: pain) Qty: 30 1RF Spiriva Respimat 2.5 mcg/actuation mist 2 puff inhalation QAM 30 Days Qty: 4 6RF levofloxacin 750 mg tablet 750 mg PO DAILY Qty: 10 0RF prednisone 20 mg tablet 20 mg PO DAILY 8 Days Qty: 8 12RF prednisone 10 mg tablet 10 mg PO DIRECTED Qty: 70 0RF Rx Instructions: Take four tabs daily for 7 days, then go down by 1 tab every 7 days. Referrals: Marleny Li MD [Primary Care Provider] - Interventions: ED Discharge Assessment Last Done: 08/10/23 13:04 Discharge Date/Time: 08/10/23 13:04
[2023-08-10] MEDS: Ketorolac Tromethamine 30 MG/ML VIAL IM (09:47)
[2023-08-10] MEDS: Magnesium Hydrox/Alum Hydrox 30 ML ORAL.SUSP 60 ML PO (09:47)
[2023-08-10 11:03] LABS: MANUAL DIFF FLAG NO
[2023-08-10 11:06] LABS: Basophils Percent Auto 0.3 % (0-2); Hematocrit 46.1 % (37.0-47.0); Hemoglobin 15.5 g/dl (12.0-16.0); Imm Gran Abs Auto 0.01 X10*3/uL (0.00-0.03); Imm Gran Pct Auto 0.1 % (0.0-0.4); Lymphocytes Absolute Auto 2.4 X10*3/uL (1.2-4.9); Lymphocytes Percent Auto 35.2 % (20-40); Mean Corpuscular HGB Conc 33.6 g/dl (31.0-35.0); Mean Corpuscular Hemoglobin 30.1 pg (27.0-33.0); Mean Corpuscular Volume 89.5 fL (80.0-98.0); Mean Platelet Volume 9.6 fL (9.4-12.3); Monocytes Absolute Auto 0.5 X10*3/uL (0.1-1.2); Monocytes Percent Auto 6.5 % (2-11); Neutrophils Percent Auto 57.9 % (45-73); Platelet Count 243 X10*3/uL (160-400); Red Blood Count 5.15 X10*6/uL (4.20-5.50); Red Cell Distribution Width 12.8 % (11.0-16.0); White Blood Count 6.9 X10*3/uL (4.8-10.8)
[2023-08-10 11:46] LABS: Alanine Aminotransferase 86 U/L (0-31); Albumin Level 4.4 g/dL (3.5-5.0); Alkaline Phosphatase 75 U/L (39-117); Anion Gap 12 (12-20); Aspartate Amino Transferase 49 U/L (5-31); Bilirubin Direct 0.1 mg/dL (0.0-0.5); Bilirubin Total 0.4 mg/dL (0.0-1.0); Blood Urea Nitrogen 10 mg/dL (9-16); C Reactive Protein 0.14 mg/dL (< or = 0.50); Calcium 9.6 mg/dL (8.4-10.2); Carbon Dioxide 26 mmol/L (22-29); Chloride 104 mmol/L (96-108); Creatinine Clr Calc Pharmacy 100.5; Estimated Glomerular Filt Rate > 60; Glucose Random 91 mg/dL (60-115); Lipase 23 U/L (8-78); Potassium 4.1 mmol/L (3.3-5.1); Sodium 138 mmol/L (135-145); Total Protein 7.9 g/dL (6.5-8.0)
[2023-08-10 12:29] VITALS: BP 123/86; PULSE 78; RESP 18; O2SAT 98
== END 2023-08-10 13:04 | disposition home or self-care (01) ==
PROVIDERS: Emergency Provider Emergency Medicine; PCP Internal Medicine
DX: R10.13 Epigastric pain (principal); F41.1 Generalized anxiety disorder; R07.81 Pleurodynia; F43.0 Acute stress reaction; Z79.899 Other long term (current) drug therapy
CPT/HCPCS: 36415; 80048; 80076; 83690; 85025; 86140; 96372; 99283; 99284; J1885

== ENCOUNTER 2023-08-21 16:22 | Emergency (ER) | payer OTHER, SELFPAY ==
--- NOTE | ~2023-08-21 | XR_ITS ---
EXAMINATION: XR CHEST CLINICAL INFORMATION: Cough chest pain COMPARISON: None available. TECHNIQUE: 2 views of the chest were obtained. FINDINGS: No significant abnormality is noted involving the heart, lungs, mediastinum, bony thorax or soft tissues. XR/XR chest 2V IMPRESSION: No radiographic evidence of acute cardiopulmonary disease.
--- NOTE | 2023-08-21 16:28 | ECG_ITS ---
Test Reason : CP Blood Pressure : / mmHG Vent. Rate : 119 BPM Atrial Rate : 119 BPM P-R Int : 128 ms QRS Dur : 066 ms QT Int : 308 ms P-R-T Axes : 054 011 012 degrees QTc Int : 433 ms Sinus tachycardia Possible Left atrial enlargement Borderline ECG When compared with ECG of 02-NOV-2021 02:27, ST no longer elevated in Anterior leads Referred By: Charis العلي Electronically Signed By:Vasile Duffy
[2023-08-21 17:09] VITALS: BP 109/76; PULSE 122; RESP 20; TEMP 37.1; O2SAT 96; BMI 30.9
[2023-08-21 18:00] LABS: COVID-19 Test Negative (Negative); IDNOW Serial# 08D9AD1C
[2023-08-21 18:02] LABS: IDNOW Serial# 9DB6401D; Influenza A Positive (Negative); Influenza B2 Negative (Negative)
== END 2023-08-22 05:59 | disposition left against medical advice (07) ==
LOC: HO.ED 08-22 05:39
PROVIDERS: Emergency Provider Emergency Medicine; PCP Internal Medicine
DX: R07.89 Other chest pain (principal); M79.10 Myalgia, unspecified site; R50.9 Fever, unspecified; Z11.52 Encounter for screening for COVID-19
CPT/HCPCS: 71046; 87502; 87635; 93005; 99283

== ENCOUNTER → 2023-08-21 16:28 | Outpatient (BNV) | payer OTHER, SELFPAY | PROVIDERS: Emergency Provider Emergency Medicine; PCP Internal Medicine; Visit Provider Internal Medicine Cardiovascular Disease | DX: R00.0 Tachycardia, unspecified (principal); R07.9 Chest pain, unspecified | CPT/HCPCS: 93010 ==

== ENCOUNTER 2023-08-29 12:22 | Outpatient (AMB) | payer OTHER, SELFPAY ==
[2023-08-29 13:08] VITALS: BP 110/80; PULSE 91; TEMP 36.2; O2SAT 99; BMI 30.8
--- NOTE | 2023-08-29 13:08 | AM.OFFWIN_ITS ---
Intake Vital Signs 08/29/23 13:08 Height 5 ft 5 in Weight 185 lb BMI 30.8 BP 110/80 Blood Pressure Location Lt brachial Position Sitting Pulse 91 Pulse Source Pulse Oximeter Temp 97.1 F Temp Source Temporal Artery Scan Pulse Oximetry (%) 99 Oxygen Delivery Method Room Air Intake Visit Reasons: EST/cough ([phone]) Intake Note: pt is here today for cough started 08/21/23 Patient Tobacco Use Status: Never used Tobacco Allergies tramadol [TRAMADOL] Allergy (Mild, Verified 08/29/23 13:11) RASH, Vomitting gabapentin [GABAPENTIN] Allergy (Unknown, Verified 08/29/23 13:11) UNKNOWN, rash, rash, vomiting Sulfa (Sulfonamide Antibiotics) [SULFA (SULFONAMIDE ANTIBIOTICS)] Allergy (Unknown, Verified 08/29/23 13:11) RASH, hives diphtheria,pertussis (acellular),te [TDAP] Adverse Reaction (Unknown, Verified 08/29/23 13:11) BODYACHES, NAUSEA morphine [MORPHINE] Adverse Reaction (Unknown, Verified 08/29/23 13:11) NAUSEA & VOMITING, N/V, vomiting Do you need a note to return to daycare/school/sports/work: No HPI HPI Comments History of Present Illness Details This is a 43-year-old female with a past medical history of asthma presenting for evaluation of a cough that she has had since August 21, 2023. Patient states she was seen in the emergency department and diagnosed with influenza. Patient states that she left prior to being seen by a physician and her buyers' agent, Dr. Chan called in Tamiflu for her as well as Prednisone that she has completed. Patient's last fever was 2 days ago. Patient has been using her nebulizer up to 6 times a day and continues to feel short of breath. Patient has an appointment with her buyers' agent scheduled on SundayAugust 31. Patient comes for evaluation secondary to her lingering cough. [facility] Medical History (Updated 08/29/23 @ 13:41 by Joy Meyers PA-C) Elevated liver transaminase level GERD (gastroesophageal reflux disease) Gastritis Acalculous cholecystitis Obesity (BMI 30.0-34.9) Fibromyalgia Environmental allergies Asthma Surgical History History of colonoscopy H/O: hysterectomy Hx of cholecystectomy Family History Father No problems noted. Mother HTN (hypertension) Maternal Aunt Breast cancer Brother No problems noted. Sister No problems noted. Son Mental health disorder Son Mental health disorder Son Mental health disorder Social History Housing: House Alcohol intake: current Alcohol intake frequency: does not drink Patient Tobacco Use Status: Never used Tobacco e-Cigarette/Vaping Use: Never Used Second Hand Smoke Exposure: No service: No Current occupational status: unemployed Cognitive needs: No Hearing needs: No Vision needs: No Review of Systems Const All systems reviewed & are unremarkable except as noted in HPI and below ENT Reports no additional complaints Card Reports no additional complaints and Reports dyspnea Resp Reports cough, Reports dyspnea and Reports wheezing Musc Reports no additional complaints Skin/Breast Reports system reviewed and no additional complaints, except as documented Aller/Immun Reports wheezing Physical Exam Patient is afebrile and oxygenating at 98% on room air. Patient is not tachypneic. Seen with chemical analytical sampler. Const General: cooperative, healthy appearing and no acute distress Nutritional Appearance: overweight Orientation/consciousness: patient oriented x3 Limitations: no limitations HEENT Head: Yes normal to inspection Ears: hearing grossly normal bilaterally, external ears normal, TM's normal bilaterally and EAC's normal General nose exam: Normal external nose present Face and sinus: Yes normal facial exam Mouth: Normal oral and palatal mucosa present Throat: Yes posterior oropharynx normal Neck Lymphatic: no lymphadenopathy noted Resp Effort & Inspection: normal respiratory effort, able to speak in complete sentences, normal respiratory pattern, no audible wheezes, no cough, no nasal flaring, no stridor and no use of accessory muscles Auscultation: clear to auscultation bilaterally (No wheezing, no tachypnea) Cardio Rate: regular rate Rhythm: regular rhythm Skin General skin exam: no rashes or lesions noted Neuro General: patient oriented x3 Psych Appearance: grossly normal Mental Status: mental status grossly normal Insight: Good insight present (Psych) Judgement: Good judgement present (Psych) Assessment & Plan Assessment & Plan (1) Cough: Code(s): R05.9 - Cough, unspecified Qualifiers: Cough type: chronic Qualified Code(s): R05.3 - Chronic cough Plan: Cough syrup as prescribed, increase clear fluids daily and follow up with pulmonology on Sunday. (2) Asthma: Code(s): J45.909 - Unspecified asthma, uncomplicated Qualifiers: Asthma severity: severe Asthma persistence: persistent Asthma complication type: with acute exacerbation Qualified Code(s): J45.51 - Severe persistent asthma with (acute) exacerbation Plan Patient is afebrile and is not hypoxic. Patient will follow up with pulmonology on Sunday as previously scheduled. Patient will be prescribed guaifenesin/codeine cough syrup for her cough. Additional prednisone will be deferred at this time. Medications: New codeine-guaifenesin 10-100 mg/5 mL 5 mL PO Q6H PRN 473 mL 0RF cough Patient Instructions: Codeine based cough syrup every 6 hours as needed for your cough. Follow-up with pulmonology on Sunday as previously scheduled. Coding Level of Care Code Est Pt Level 3 (50427) Diagnoses Chronic cough R05.3 Cough type: chronic Severe persistent asthma with acute exacerbation J45.51 Asthma severity: severe Asthma persistence: persistent Asthma complication type: with acute exacerbation Time Spent (min) 25
== END 2023-08-29 13:50 | disposition home or self-care (01) ==
PROVIDERS: PCP Internal Medicine; Visit Provider Physician Assistant
DX: R05.3 Chronic cough (principal); J45.51 Severe persistent asthma with (acute) exacerbation
CPT/HCPCS: 99213

== ENCOUNTER 2023-08-31 12:43 | Outpatient (REF) | payer OTHER, SELFPAY ==
[2023-08-31 14:47] LABS: TSH reflex Free T4 1.45 uIU/mL (0.32-4.0)
[2023-09-03 15:03] LABS: TS Negative Control Passed; TS Panel A 1; TS Panel B 0; TS Positive Control Passed; TSpotTB Negative (Negative)
== END 2023-08-31 12:44 | disposition home or self-care (01) ==
LOC: HO.LAB 12:43
PROVIDERS: PCP Internal Medicine; Visit Provider Internal Medicine Pulmonary Disease
DX: Z11.1 Encounter for screening for respiratory tuberculosis (principal); R05.9 Cough, unspecified; R68.89 Other general symptoms and signs; J45.50 Severe persistent asthma, uncomplicated; Z91.09 Other allergy status, other than to drugs and biological substances
CPT/HCPCS: 36415; 84443; 86481; 99212

== ENCOUNTER 2023-08-31 12:43 | Outpatient (AMB) | payer OTHER, SELFPAY ==
[2023-08-31 12:52] VITALS: BP 117/72; PULSE 98; O2SAT 97; BMI 31.2
--- NOTE | 2023-08-31 12:52 | A.OFFVIS_ITS ---
Intake Vital Signs 08/31/23 12:52 Height 5 ft 5 in Weight 187 lb 6.287 oz BMI 31.2 BP 117/72 Blood Pressure Location Rt brachial Position Sitting Pulse 98 Pulse Source Doppler Pulse Oximetry (%) 97 Oxygen Delivery Method Room Air Intake Visit Reasons: asthma Allergies tramadol [TRAMADOL] Allergy (Mild, Verified 08/31/23 12:59) RASH, Vomitting gabapentin [GABAPENTIN] Allergy (Unknown, Verified 08/31/23 12:59) UNKNOWN, rash, rash, vomiting Sulfa (Sulfonamide Antibiotics) [SULFA (SULFONAMIDE ANTIBIOTICS)] Allergy (Unknown, Verified 08/31/23 12:59) RASH, hives diphtheria,pertussis (acellular),te [TDAP] Adverse Reaction (Unknown, Verified 08/31/23 12:59) BODYACHES, NAUSEA morphine [MORPHINE] Adverse Reaction (Unknown, Verified 08/31/23 12:59) NAUSEA & VOMITING, N/V, vomiting HPI asthma HPI Details 43-year-old lady, nonsmoker followed for severe persistent allergic asthma with multiple breakthrough episodes. ? She has been using Tezspire, Symbicort, theophylline, Singulair, and duo nebs /albuterol with acceptable, but suboptimal control of her symptoms, particularly right before her Tezspire injection. Unfortunately, after the last Tezspire injection she started getting worse symptoms, similar to her prior reaction to other agents used for immune therapy of asthma. She has been switched to Fasenra with some improvement. However, today she presents complaining of an acute exacerbation symptomatic w ith wheezing, poor air movement, and dyspnea on exertion. [facility] Medical History (Updated 08/31/23 @ 13:12 by Steve Chan MD) Elevated liver transaminase level GERD (gastroesophageal reflux disease) Gastritis Acalculous cholecystitis Obesity (BMI 30.0-34.9) Fibromyalgia Environmental allergies Asthma Surgical History History of colonoscopy H/O: hysterectomy Hx of cholecystectomy Family History Father No problems noted. Mother HTN (hypertension) Maternal Aunt Breast cancer Brother No problems noted. Sister No problems noted. Son Mental health disorder Son Mental health disorder Son Mental health disorder Social History Housing: House Alcohol intake: current Alcohol intake frequency: does not drink Patient Tobacco Use Status: Never used Tobacco e-Cigarette/Vaping Use: Never Used Second Hand Smoke Exposure: No service: No Current occupational status: unemployed Cognitive needs: No Hearing needs: No Vision needs: No Review of Systems Const Denies daytime sleepiness, Denies excessive sweating, Denies fatigue, Denies fever(s), Denies lethargy, Denies malaise, Denies night sweats, Denies snoring and Denies weight loss Eyes Denies blurry vision and Denies itchy eyes ENT Denies nasal congestion, Denies post nasal drip, Denies sinus pain, Denies sinus pressure and Denies other ( Thrush) Card Denies chest pain, Denies pedal edema, Denies dyspnea, Reports dyspnea on exertion, Denies orthopnea and Denies paroxysmal nocturnal dyspnea Resp Denies cough, Denies hemoptysis, Denies excessive phlegm production, Denies dyspnea, Reports dyspnea on exertion, Denies snoring and Reports wheezing GI Denies abdominal pain and Denies heartburn Musc Denies myalgias, Denies arthralgias and Denies joint swelling Skin/Breast Denies rash Neuro Denies memory loss and Denies seizure-like activity Psych Denies abnormal sleep pattern, Denies anxiety and Denies memory loss Endo Denies excessive sweating, Denies fatigue and Denies heat intolerance Mitchell/Lymph Denies easy bruising Aller/Immun Denies itchy eyes, Denies seasonal rhinorrhea and Reports wheezing Physical Exam Vital Signs: Last Vital Signs Pulse 98 08/31/23 12:52 BP 117/72 08/31/23 12:52 Pulse Ox 97 08/31/23 12:52 Oxygen Delivery Method Room Air 08/31/23 12:52 BMI result Body Mass Index 31.2 Const General: no acute distress and alert Nutritional Appearance: not obese Orientation/consciousness: Other orientation findings ( oriented) HEENT Head: Yes atraumatic Eyes General: appearance normal, both eyes and all related structures Sclerae: sclerae normal EOM: EOMs intact bilaterally Neck Neck: Yes supple Lymphatic: no lymphadenopathy noted Resp Effort & Inspection: normal respiratory effort and no use of accessory muscles Auscultation: wheezes expiratory wheezes and other (Poor bilateral air movement) Cardio Rate: regular rate Rhythm: regular rhythm Heart sounds: no gallops, no murmurs and no rubs Skin General skin exam: other ( warm) Extrem General: No clubbing, No cyanosis and No edema Assessment & Plan Assessment & Plan (1) Severe persistent allergic asthma: Code(s): J45.50 - Severe persistent asthma, uncomplicated Plan: Now with acute exacerbation, will treat with prednisone taper. With improving control after starting on Fasenra. Continue Fasenra, duo nebs, Symbicort, Spiriva, and theophylline. (2) Environmental allergies: Code(s): Z91.09 - Other allergy status, other than to drugs and biological substances Plan: Improving symptoms on Fasenra. Continue current regimen. Orders: Orders TSH reflex Free T4 Today R68.89 - Other general symptoms and signs T Spot TB Today R05.9 - Cough, unspecified Medications: Changed From prednisone Take four tabs daily for 7 days, then go down by 1 tab every 7 days. 10 mg PO DIRECTED 70 tabs 0RF To prednisone Take three tabs daily for 7 days, then go down by 1 tab every 7 days. 10 mg PO DIRECTED 42 tabs 0RF Discontinued prednisone Discontinued Reason: Doctor's Order 40 mg (2 x 20 mg) PO DAILY 10 tabs 0RF Coding Level of Care Code Est Pt Level 4 (36141) Diagnoses Severe persistent allergic asthma J45.50 Environmental allergies Z91.09
== END 2023-08-31 13:15 | disposition home or self-care (01) ==
PROVIDERS: PCP Internal Medicine; Visit Provider Internal Medicine Pulmonary Disease
DX: J45.50 Severe persistent asthma, uncomplicated (principal); Z91.09 Other allergy status, other than to drugs and biological substances
CPT/HCPCS: 99214

== ENCOUNTER 2023-09-07 10:10 | Outpatient (AMB) | payer OTHER, SELFPAY ==
[2023-09-07 10:16] VITALS: BP 102/74; PULSE 89; O2SAT 99; BMI 30.9
--- NOTE | 2023-09-07 10:16 | A.OFFPC_ITS ---
Vital Signs 09/07/23 10:16 Height 5 ft 5 in Weight 186 lb BMI 30.9 BP 102/74 Blood Pressure Location Rt brachial Position Sitting Pulse 89 Pulse Source Pulse Oximeter Pulse Oximetry (%) 99 Oxygen Delivery Method Room Air Intake Visit Reasons: Tingling on left upper abdomen Intake Note: Pt is here today for her ED f/u c/o Lt upper quaradant pain Allergies tramadol [TRAMADOL] Allergy (Mild, Verified 09/07/23 23:38) RASH, Vomitting gabapentin [GABAPENTIN] Allergy (Unknown, Verified 09/07/23 23:38) UNKNOWN, rash, rash, vomiting Sulfa (Sulfonamide Antibiotics) [SULFA (SULFONAMIDE ANTIBIOTICS)] Allergy (Unknown, Verified 09/07/23 23:38) RASH, hives diphtheria,pertussis (acellular),te [TDAP] Adverse Reaction (Unknown, Verified 09/07/23 23:38) BODYACHES, NAUSEA morphine [MORPHINE] Adverse Reaction (Unknown, Verified 09/07/23 23:38) NAUSEA & VOMITING, N/V, vomiting Medication List - Last Reconciled 09/07/23 by Marleny Li MD albuterol sulfate 90 mcg/actuation (ProAir HFA) 2 puffs inhalation Q4-6H PRN 30 days benralizumab (Fasenra) 30 mg subcut Q8W 28 days codeine-guaifenesin 10-100 mg/5 mL 5 mL PO Q6H PRN duloxetine 60 mg PO DAILY famotidine 40 mg PO DAILY ibuprofen 800 mg PO .qd PRN ipratropium-albuterol 0.5 mg-3 mg(2.5 mg base)/3 mL 3 mL inhalation Q6H PRN lidocaine 5% (Lidoderm) 1 patch topical DAILY PRN MDD remove after 12 hours loratadine (Claritin) 10 mg PO DAILY PRN magnesium 250 mg PO DAILY montelukast 10 mg PO DAILY omeprazole 40 mg PO DAILY prednisone 10 mg PO DIRECTED sucralfate 1 g PO TID PRN Symbicort 160-4.5 mcg/actuation (budesonide-formoterol) 2 puffs inhalation BID 30 days NS theophylline ER 400 mg PO DAILY 30 days tiotropium bromide 2.5 mcg/actuation (Spiriva Respimat) 2 puffs inhalation QAM 30 days umeclidinium 62.5 mcg/actuation (Incruse Ellipta) 1 inh inhalation DAILY 30 days Tobacco use date assessed: 09/07/23 Dental Screening Dental Screen Date: 09/07/23 Did you have a dental visit in the last 12 months?: No Was dental information given to patient?: No HPI HPI Comments History of Present Illness Details 43-year-old lady here today complaining of having intermittent episodes of electricity like sensations felt on her left upper abdomen , under her left ribcage . Patient states that it comes out of the blue, last for several seconds to a minute, resolve spontaneously. Patient states that she started experiencing this after she was started on Fasenra, for her asthma treatment. Denies any accompanying nausea, no shortness of breath, no chest pain , headache or lightheadedness reported [facility] Medical History Elevated liver transaminase level GERD (gastroesophageal reflux disease) Gastritis Acalculous cholecystitis Obesity (BMI 30.0-34.9) Fibromyalgia Environmental allergies Asthma Surgical History History of colonoscopy H/O: hysterectomy Hx of cholecystectomy Family History Father No problems noted. Mother HTN (hypertension) Maternal Aunt Breast cancer Brother No problems noted. Sister No problems noted. Son Mental health disorder Son Mental health disorder Son Mental health disorder Social History Housing: House Alcohol intake: current Alcohol intake frequency: does not drink Patient Tobacco Use Status: Never used Tobacco e-Cigarette/Vaping Use: Never Used Second Hand Smoke Exposure: No service: No Current occupational status: unemployed Cognitive needs: No Hearing needs: No Vision needs: No Questionnaire PHQ-9 Over the last 2 weeks, how often have you been bothered by any of the following problems? Depression Screening Interpretation: Negative Depression Screening Done: Yes Source: Developed by Drs. Mario Buitrago, Socorro Briggs, Kamlesh Yepez and colleagues, with an educational yue from [employer]. Thrive Questionnaire Date Thrive assessed: 12/22/21 I am a: Patient Within the past 12 months, did the food you bought not last and you didn't have the money to get more?: Often true Within the past 12 months, did you worry whether your food would run out before you got money to buy more?: Often true Please select the resources that you would like help with: Housing/Penitentiary THRIVE Score: 2 AUDIT C Alcohol Use Questionnaire (AUDIT-C) 1. How often do you have a drink containing alcohol?: Never 3. How often do you have six or more drinks on one occasion?: Never Total Score: 0 IVY-7 AMB Questionnaire IVY-7 Date IVY - 7 assessed: 12/22/21 Feeling nervous, anxious, or on edge: 0 = Not at all Not being able to stop or control worryin = Not at all Worrying too much about different things: 0 = Not at all Trouble relaxin = Not at all Being so restless that it is hard to sit still: 0 = Not at all Becoming easily annoyed or irritable: 0 = Not at all Feeling afraid as if something awful might happen: 0 = Not at all Total IVY-7 score (0-4 normal; 5-9 mild; 10-14 moderate; 15-21 severe): 0 Source: Developed by Drs. Mario Buitrago, Socorro Briggs, Kamlesh Yepez and colleagues, with an educational yue from [employer]. Review of Systems Const Denies fatigue, Denies fever(s), Denies malaise, Denies night sweats and Denies snoring Eyes Denies change in vision ENT Denies nasal congestion and Denies post nasal drip Card Denies chest pain, Denies pedal edema and Denies dyspnea Resp Denies cough, Denies dyspnea and Denies snoring GI Denies abdominal pain and Denies heartburn Reports no additional complaints Musc Denies myalgias, Denies arthralgias and Denies joint swelling Skin/Breast Denies rash Neuro Denies memory loss Psych Denies abnormal sleep pattern, Denies anxiety and Denies memory loss Endo Denies fatigue and Denies heat intolerance Mitchell/Lymph Denies easy bruising Aller/Immun Denies seasonal rhinorrhea Physical exam (Primary Care) Vital Signs: Last Vital Signs Pulse 89 09/07/23 10:16 BP 102/74 09/07/23 10:16 Pulse Ox 99 09/07/23 10:16 Oxygen Delivery Method Room Air 09/07/23 10:16 BMI result Body Mass Index 30.9 Tobacco/Smoking Status: Tobacco use Status Tobacco use date assessed 09/07/23 09/07/23 10:21 Patient Tobacco Use Status Never used Tobacco 09/07/23 10:21 e-Cigarette/Vaping Use Never Used 09/07/23 10:21 Depression Screening Interpretation: Negative Thrive Assessment: Date of Thrive Assessment Date Thrive assessed 12/22/21 09/07/23 10:21 Const Other: Alert oriented x3, no acute cardiorespiratory distress ambulatory with normal gait Orientation/consciousness: patient oriented x3 [facility] General nose exam: Normal external nose present, Normal nasal mucous membranes a nd turbinates present and No nasal discharge present Throat: Yes posterior oropharynx normal Neck Other: Supple, no lymphadenopathy, full range of motion, thyroid gland nonpalpable Chest Breast/axilla palpation: normal palpation of the breasts Resp Auscultation: clear to auscultation bilaterally Cardio Other: Has S1-S2 present regular rate and rhythm GI Palpation (GI): Soft to palpation, nontender, no guarding and no masses General: Yes no CVA tenderness Back/Spine/Pelvis Back: no CVA tenderness and No back tenderness Skin General skin exam: no rashes or lesions noted Neuro General: patient oriented x3, gait normal, tone normal, moves all extremities, Normal light touch and pain sensation, no focal motor deficits and CN's II-XI intact bilaterally Extrem General: Yes full ROM, Yes no joint enlargement, Yes no pedal edema, Yes no calf tenderness and Yes normal gait Assessment and Plan Assessment & Plan (1) Paresthesia: Code(s): R20.2 - Paresthesia of skin Plan: Explain to patient that this is most likely due to nerve impingement or damage. Will give a trial of magnesium supplement to 50 mg per tablet to take once a day. Advised to apply warm compress to affected area to see if this will help prevent recurrences. Unlikely to be caused by starting Fasenra. Advised to drink plenty of fluids, has an appointment for follow-up with her gi technician next month. Medications: New magnesium 250 mg PO DAILY 30 tabs 0RF Coding Level of Care Code Est Pt Level 3 (28930) Diagnoses Paresthesia R20.2
== END 2023-09-07 12:32 | disposition home or self-care (01) ==
PROVIDERS: PCP Internal Medicine; Visit Provider Internal Medicine
DX: R20.2 Paresthesia of skin (principal)
CPT/HCPCS: 99213

== ENCOUNTER 2023-09-25 07:18 | Outpatient (REF) | payer OTHER, SELFPAY ==
[2023-09-25 07:27] VITALS: BP 114/81; PULSE 91; RESP 16; TEMP 36.5; O2SAT 98
== END 2023-09-25 07:19 | disposition home or self-care (01) ==
LOC: HO.MDS 07:18
PROVIDERS: Visit Provider Internal Medicine Pulmonary Disease
DX: J45.50 Severe persistent asthma, uncomplicated (principal)
CPT/HCPCS: 96372

== ENCOUNTER 2023-10-12 10:35 | Outpatient (AMB) | payer OTHER, SELFPAY ==
[2023-10-12 10:42] VITALS: BP 102/67; PULSE 91; O2SAT 99; BMI 30.3
--- NOTE | 2023-10-12 10:42 | MHC.OFFVIS ---
Intake Vital Signs 10/12/23 10:42 Height 5 ft 5 in Weight 182 lb BMI 30.3 BP 102/67 Blood Pressure Location Rt brachial Position Sitting Pulse 91 Pulse Source Doppler Pulse Oximetry (%) 99 Oxygen Delivery Method Room Air Intake Visit Reasons: asthma Allergies tramadol [TRAMADOL] Allergy (Mild, Verified 09/07/23 23:38) RASH, Vomitting gabapentin [GABAPENTIN] Allergy (Unknown, Verified 09/07/23 23:38) UNKNOWN, rash, rash, vomiting Sulfa (Sulfonamide Antibiotics) [SULFA (SULFONAMIDE ANTIBIOTICS)] Allergy (Unknown, Verified 09/07/23 23:38) RASH, hives diphtheria,pertussis (acellular),te [TDAP] Adverse Reaction (Unknown, Verified 09/07/23 23:38) BODYACHES, NAUSEA morphine [MORPHINE] Adverse Reaction (Unknown, Verified 09/07/23 23:38) NAUSEA & VOMITING, N/V, vomiting HPI asthma HPI Details 43-year-old lady, nonsmoker followed for severe persistent allergic asthma with multiple breakthrough episodes. ? She has been using Fasenra, Symbicort, theophylline, Singulair, prednisone 10 mg daily, and duo nebs /albuterol with suboptimal control of her symptoms, particularly during the weeks 4-8 after Fasenra injections. Patient had previous good control, but developed prior reactions to other agents used for immune therapy of asthma including Xolair, Nucala, Dupixent, and Tezspire. She denies an acute exacerbation. [facility] Medical History Elevated liver transaminase level GERD (gastroesophageal reflux disease) Gastritis Acalculous cholecystitis Obesity (BMI 30.0-34.9) Fibromyalgia Environmental allergies Asthma Surgical History History of colonoscopy H/O: hysterectomy Hx of cholecystectomy Family History Father No problems noted. Mother HTN (hypertension) Maternal Aunt Breast cancer Brother No problems noted. Sister No problems noted. Son Mental health disorder Son Mental health disorder Son Mental health disorder Social History Housing: House Alcohol intake: current Alcohol intake frequency: does not drink Patient Tobacco Use Status: Never used Tobacco e-Cigarette/Vaping Use: Never Used Second Hand Smoke Exposure: No service: No Current occupational status: unemployed Cognitive needs: No Hearing needs: No Vision needs: No Review of Systems Const Denies daytime sleepiness, Denies excessive sweating, Denies fatigue, Denies fever(s), Denies lethargy, Denies malaise, Denies night sweats, Denies snoring and Denies weight loss Eyes Denies blurry vision and Denies itchy eyes ENT Denies nasal congestion, Denies post nasal drip, Denies sinus pain, Denies sinus pressure and Denies other ( Thrush) Card Denies chest pain, Denies pedal edema, Denies dyspnea, Denies orthopnea and Denies paroxysmal nocturnal dyspnea Resp Denies cough, Denies hemoptysis, Denies excessive phlegm production, Denies dyspnea, Denies snoring and Reports wheezing GI Denies abdominal pain and Denies heartburn Musc Denies myalgias, Denies arthralgias and Denies joint swelling Skin/Breast Denies rash Neuro Denies memory loss and Denies seizure-like activity Psych Denies abnormal sleep pattern, Denies anxiety and Denies memory loss Endo Denies excessive sweating, Denies fatigue and Denies heat intolerance Mitchell/Lymph Denies easy bruising Aller/Immun Denies itchy eyes, Denies seasonal rhinorrhea and Reports wheezing Physical Exam Vital Signs: Last Vital Signs Pulse 91 10/12/23 10:42 BP 102/67 10/12/23 10:42 Pulse Ox 99 10/12/23 10:42 Oxygen Delivery Method Room Air 10/12/23 10:42 BMI result Body Mass Index 30.3 Const General: no acute distress and alert Nutritional Appearance: not obese Orientation/consciousness: Other orientation findings ( oriented) HEENT Head: Yes atraumatic Eyes General: appearance normal, both eyes and all related structures Sclerae: sclerae normal EOM: EOMs intact bilaterally Neck Neck: Yes supple Lymphatic: no lymphadenopathy noted Resp Effort & Inspection: normal respiratory effort and no use of accessory muscles Auscultation: clear to auscultation bilaterally Cardio Rate: regular rate Rhythm: regular rhythm Heart sounds: no gallops, no murmurs and no rubs Skin General skin exam: other ( warm) Extrem General: No clubbing, No cyanosis and No edema Assessment & Plan Assessment & Plan (1) Severe persistent allergic asthma: Code(s): J45.50 - Severe persistent asthma, uncomplicated Plan: Improved, but still very suboptimal control on Fasenra, Symbicort, Incruse, duo nebs prednisone 10 mg daily, theophylline, and albuterol MDI. Will refer for bronchial thermoplasty evaluation. (2) Environmental allergies: Code(s): Z91.09 - Other allergy status, other than to drugs and biological substances Plan: Improved control on Fasenra. Continue current regimen. Orders: Referrals Pulmonary Medicine Referral J45.50 - Severe persistent asthma, uncomplicated Coding Level of Care Code Est Pt Level 4 (17686) Diagnoses Severe persistent allergic asthma J45.50 Environmental allergies Z91.09
== END 2023-10-12 10:54 | disposition home or self-care (01) ==
PROVIDERS: PCP Internal Medicine; Visit Provider Internal Medicine Pulmonary Disease
DX: J45.50 Severe persistent asthma, uncomplicated (principal); Z91.09 Other allergy status, other than to drugs and biological substances
CPT/HCPCS: 99214

== ENCOUNTER → 2023-10-12 10:35 | Outpatient (BNVA) | payer OTHER, SELFPAY | PROVIDERS: PCP Internal Medicine; Visit Provider Internal Medicine Pulmonary Disease | DX: J45.50 Severe persistent asthma, uncomplicated (principal); Z91.09 Other allergy status, other than to drugs and biological substances | CPT/HCPCS: 99212 ==

== ENCOUNTER 2023-11-23 14:14 | Outpatient (AMB) | payer OTHER, SELFPAY ==
[2023-11-23 14:15] VITALS: BP 122/77; PULSE 93; O2SAT 98; BMI 30.6
--- NOTE | 2023-11-23 14:15 | MHC.OFFVIS ---
Vital Signs 11/23/23 14:15 Height 5 ft 5 in Weight 184 lb 1.376 oz BMI 30.6 BP 122/77 Blood Pressure Location Rt brachial Position Sitting Pulse 93 Pulse Source Doppler Pulse Oximetry (%) 98 Oxygen Delivery Method Room Air Intake Visit Reasons: asthma/sob Software Qa System Specialist Required: Yes Software Qa System Specialist Name: Morelia [email or web address] Allergies tramadol [TRAMADOL] Allergy (Mild, Verified 11/23/23 14:26) RASH, Vomitting gabapentin [GABAPENTIN] Allergy (Unknown, Verified 11/23/23 14:26) UNKNOWN, rash, rash, vomiting Sulfa (Sulfonamide Antibiotics) [SULFA (SULFONAMIDE ANTIBIOTICS)] Allergy (Unknown, Verified 11/23/23 14:26) RASH, hives diphtheria,pertussis (acellular),te [TDAP] Adverse Reaction (Unknown, Verified 11/23/23 14:26) BODYACHES, NAUSEA morphine [MORPHINE] Adverse Reaction (Unknown, Verified 11/23/23 14:) NAUSEA & VOMITING, N/V, vomiting HPI HPI asthma/sob: Details: 43-year-old lady, nonsmoker followed for severe persistent allergic asthma with multiple breakthrough episodes. ? She has been using Fasenra, Symbicort, theophylline, Singulair, prednisone 10 mg daily, and duo nebs /albuterol with suboptimal control of her symptoms, particularly during the weeks 4-8 after Fasenra injections. Patient had previous good control, but developed prior reactions to other agents used for immune therapy of asthma including Xolair, Nucala, Dupixent, and Tezspire. She complains of an acute exacerbation. Patient has been referred for bronchial thermoplastic and is awaiting further evaluation. [facility] Medical History Elevated liver transaminase level GERD (gastroesophageal reflux disease) Gastritis Acalculous cholecystitis Obesity (BMI 30.0-34.9) Fibromyalgia Environmental allergies Asthma Surgical History History of colonoscopy H/O: hysterectomy Hx of cholecystectomy Family History Father No problems noted. Mother HTN (hypertension) Maternal Aunt Breast cancer Brother No problems noted. Sister No problems noted. Son Mental health disorder Son Mental health disorder Son Mental health disorder Social History Housing: House Alcohol intake: current Alcohol intake frequency: does not drink Patient Tobacco Use Status: Never used Tobacco e-Cigarette/Vaping Use: Never Used Second Hand Smoke Exposure: No service: No Current occupational status: unemployed Cognitive needs: No Hearing needs: No Vision needs: No Review of Systems Const Denies daytime sleepiness, Denies excessive sweating, Denies fatigue, Denies fever(s), Denies lethargy, Denies malaise, Denies night sweats, Denies snoring and Denies weight loss Eyes Denies blurry vision and Denies itchy eyes ENT Denies nasal congestion, Denies post nasal drip, Denies sinus pain, Denies sinus pressure and Denies other ( Thrush) Card Denies chest pain, Denies pedal edema, Denies dyspnea, Reports dyspnea on exertion, Denies orthopnea and Denies paroxysmal nocturnal dyspnea Resp Reports cough, Denies hemoptysis, Denies excessive phlegm production, Denies dyspnea, Reports dyspnea on exertion, Denies snoring and Reports wheezing GI Denies abdominal pain and Denies heartburn Musc Denies myalgias, Denies arthralgias and Denies joint swelling Skin/Breast Denies rash Neuro Denies memory loss and Denies seizure-like activity Psych Denies abnormal sleep pattern, Denies anxiety and Denies memory loss Endo Denies excessive sweating, Denies fatigue and Denies heat intolerance Mitchell/Lymph Denies easy bruising Aller/Immun Denies itchy eyes, Denies seasonal rhinorrhea and Reports wheezing Physical Exam Vital Signs: Last Vital Signs Pulse 93 11/23/23 14:15 BP 122/77 11/23/23 14:15 Pulse Ox 98 11/23/23 14:15 Oxygen Delivery Method Room Air 11/23/23 14:15 BMI result Body Mass Index 30.6 Const General: no acute distress and alert Nutritional Appearance: not obese Orientation/consciousness: Other orientation findings ( oriented) HEENT Head: Yes atraumatic Eyes General: appearance normal, both eyes and all related structures Sclerae: sclerae normal EOM: EOMs intact bilaterally Neck Neck: Yes supple Lymphatic: no lymphadenopathy noted Resp Effort & Inspection: normal respiratory effort and no use of accessory muscles Auscultation: other (Poor bilateral air movement) Cardio Rate: regular rate Rhythm: regular rhythm Heart sounds: no gallops, no murmurs and no rubs Skin General skin exam: other ( warm) Extrem General: No clubbing, No cyanosis and No edema Assessment & Plan Assessment & Plan (1) Severe persistent allergic asthma: Code(s): J45.50 - Severe persistent asthma, uncomplicated Category: Medical Plan: Suboptimal control on Fasenra, Symbicort, Spiriva, duo nebs, montelukast albuterol MDI, theophylline. Patient is awaiting bronchial thermoplastic evaluation. Will treat acute exacerbation with a course of prednisone azithromycin. (2) Environmental allergies: Code(s): Z91.09 - Other allergy status, other than to drugs and biological substances Category: Medical Plan: Reasonable control on Fasenra. Continue current regimen. Medications: New prednisone Take 4 tabs daily for 7 days, then go down by 1 tab every 7 days. 10 mg PO DIRECTED 70 tabs 0RF azithromycin For 250 mg dose pack: take 500 mg today (day 1), then 250 mg for 4 days (days 2-5) PO 6 tabs 0RF Coding Level of Care Code Est Pt Level 4 (97566) Diagnoses Severe persistent allergic asthma J45.50 Environmental allergies Z91.09
== END 2023-11-23 14:42 | disposition home or self-care (01) ==
PROVIDERS: PCP Internal Medicine; Visit Provider Internal Medicine Pulmonary Disease
DX: J45.50 Severe persistent asthma, uncomplicated (principal); Z91.09 Other allergy status, other than to drugs and biological substances
CPT/HCPCS: 99214

== ENCOUNTER → 2023-11-23 14:14 | Outpatient (BNVA) | payer OTHER, SELFPAY | PROVIDERS: PCP Internal Medicine; Visit Provider Internal Medicine Pulmonary Disease | DX: J45.50 Severe persistent asthma, uncomplicated (principal); Z91.09 Other allergy status, other than to drugs and biological substances | CPT/HCPCS: 99212 ==

== ENCOUNTER 2024-01-22 08:50 | Outpatient (AMB) | payer OTHER, SELFPAY ==
[2024-01-22 09:03] VITALS: BP 100/64; PULSE 84; O2SAT 99; BMI 30.6
--- NOTE | 2024-01-22 09:03 | MHC.OFFVIS ---
Vital Signs 01/22/24 09:03 Height 5 ft 5 in Weight 184 lb 1.376 oz BMI 30.6 BP 100/64 Blood Pressure Location Lt brachial Position Sitting Pulse 84 Pulse Source Doppler Pulse Oximetry (%) 99 Oxygen Delivery Method Room Air Intake Visit Reasons: Asthma Allergies tramadol [TRAMADOL] Allergy (Mild, Verified 01/22/24 09:08) RASH, Vomitting gabapentin [GABAPENTIN] Allergy (Unknown, Verified 01/22/24 09:08) UNKNOWN, rash, rash, vomiting Sulfa (Sulfonamide Antibiotics) [SULFA (SULFONAMIDE ANTIBIOTICS)] Allergy (Unknown, Verified 01/22/24 09:08) RASH, hives diphtheria,pertussis (acellular),te [TDAP] Adverse Reaction (Unknown, Verified 01/22/24 09:08) BODYACHES, NAUSEA morphine [MORPHINE] Adverse Reaction (Unknown, Verified 01/22/24 09:08) NAUSEA & VOMITING, N/V, vomiting HPI HPI Asthma: Details: 43-year-old lady, nonsmoker followed for severe persistent allergic asthma with multiple breakthrough episodes. ? She has been using Fasenra, Incruse, Symbicort, theophylline, Singulair, prednisone 10 mg daily, and duo nebs /albuterol with suboptimal control of her symptoms, particularly during the weeks 4-8 after Fasenra injections. Patient had previous good control, but developed prior reactions to other agents used for immune therapy of asthma including Xolair, Nucala, Dupixent, and Tezspire. She denies recent acute exacerbations. Patient has been referred for bronchial thermoplasty and is awaiting further evaluation. [facility] Medical History Elevated liver transaminase level GERD (gastroesophageal reflux disease) Gastritis Acalculous cholecystitis Obesity (BMI 30.0-34.9) Fibromyalgia Environmental allergies Asthma Surgical History History of colonoscopy H/O: hysterectomy Hx of cholecystectomy Family History Father No problems noted. Mother HTN (hypertension) Maternal Aunt Breast cancer Brother No problems noted. Sister No problems noted. Son Mental health disorder Son Mental health disorder Son Mental health disorder Social History Housing: House Alcohol intake: current Alcohol intake frequency: does not drink Patient Tobacco Use Status: Never used Tobacco e-Cigarette/Vaping Use: Never Used Second Hand Smoke Exposure: No service: No Current occupational status: unemployed Cognitive needs: No Hearing needs: No Vision needs: No Review of Systems Const Denies daytime sleepiness, Denies excessive sweating, Denies fatigue, Denies fever(s), Denies lethargy, Denies malaise, Denies night sweats, Denies snoring and Denies weight loss Eyes Denies blurry vision and Denies itchy eyes ENT Denies nasal congestion, Denies post nasal drip, Denies sinus pain, Denies sinus pressure and Denies other ( Thrush) Card Denies chest pain, Denies pedal edema, Denies dyspnea, Reports dyspnea on exertion, Denies orthopnea and Denies paroxysmal nocturnal dyspnea Resp Denies cough, Denies hemoptysis, Denies excessive phlegm production, Denies dyspnea, Reports dyspnea on exertion, Denies snoring and Reports wheezing GI Denies abdominal pain and Denies heartburn Musc Denies myalgias, Denies arthralgias and Denies joint swelling Skin/Breast Denies rash Neuro Denies memory loss and Denies seizure-like activity Psych Denies abnormal sleep pattern, Denies anxiety and Denies memory loss Endo Denies excessive sweating, Denies fatigue and Denies heat intolerance Mitchell/Lymph Denies easy bruising Aller/Immun Denies itchy eyes, Denies seasonal rhinorrhea and Reports wheezing Physical Exam Vital Signs: Last Vital Signs Pulse 84 01/22/24 09:03 BP 100/64 01/22/24 09:03 Pulse Ox 99 01/22/24 09:03 Oxygen Delivery Method Room Air 01/22/24 09:03 BMI result Body Mass Index 30.6 Const General: no acute distress and alert Nutritional Appearance: not obese Orientation/consciousness: Other orientation findings ( oriented) HEENT Head: Yes atraumatic Eyes General: appearance normal, both eyes and all related structures Sclerae: sclerae normal EOM: EOMs intact bilaterally Neck Neck: Yes supple Lymphatic: no lymphadenopathy noted Resp Effort & Inspection: normal respiratory effort and no use of accessory muscles Auscultation: other (Poor bilateral air movement) Cardio Rate: regular rate Rhythm: regular rhythm Heart sounds: no gallops, no murmurs and no rubs Skin General skin exam: other ( warm) Extrem General: No clubbing, No cyanosis and No edema Assessment & Plan Assessment & Plan (1) Severe persistent allergic asthma: Code(s): J45.50 - Severe persistent asthma, uncomplicated Category: Medical Plan: Suboptimal control Fasenra, Symbicort, Incruse, theophylline, Singulair, duo nebs, prednisone 10 mg daily during week 5, 6, 7, and 8 of Fasenra, and albuterol MDI. Patient is awaiting bronchial thermoplasty evaluation. (2) Environmental allergies: Code(s): Z91.09 - Other allergy status, other than to drugs and biological substances Category: Medical Plan: Well controlled on Fasenra. Continue current regimen. Medications: New prednisone 10 mg PO DAILY 30 tabs 6RF Refilled Symbicort 160-4.5 mcg/actuation (budesonide-formoterol) 2 puffs inhalation BID 30 days 10.2 grams 6RF NS albuterol sulfate 90 mcg/actuation (ProAir HFA) 2 puffs inhalation Q4-6H 30 days PRN 1 ea 6RF shortness of breath or wheezing tiotropium bromide 2.5 mcg/actuation (Spiriva Respimat) 2 puffs inhalation QAM 30 days 4 grams 6RF Discontinued prednisone Take 4 tabs daily for 7 days, then go down by 1 tab every 7 days. Discontinued Reason: Doctor's Order 10 mg PO DIRECTED 70 tabs 0RF Coding Level of Care Code Est Pt Level 4 (22304) Complex EM visit Add On G2211 Diagnoses Severe persistent allergic asthma J45.50 Environmental allergies Z91.09
== END 2024-01-22 09:20 | disposition home or self-care (01) ==
PROVIDERS: PCP Internal Medicine; Visit Provider Internal Medicine Pulmonary Disease
DX: J45.50 Severe persistent asthma, uncomplicated (principal); Z91.09 Other allergy status, other than to drugs and biological substances
CPT/HCPCS: 99214; G2211

== ENCOUNTER → 2024-01-22 08:50 | Outpatient (BNVA) | payer OTHER, SELFPAY | PROVIDERS: PCP Internal Medicine; Visit Provider Internal Medicine Pulmonary Disease | DX: J45.50 Severe persistent asthma, uncomplicated (principal); Z91.09 Other allergy status, other than to drugs and biological substances | CPT/HCPCS: 99212 ==

== ENCOUNTER 2024-03-20 13:19 | Outpatient (AMB) | payer OTHER, SELFPAY ==
[2024-03-20 13:42] VITALS: BP 110/62; PULSE 87; O2SAT 99; BMI 30.8
--- NOTE | 2024-03-20 13:42 | A.OFFVIS_ITS ---
Vital Signs 03/20/24 13:42 Height 5 ft 5 in Weight 185 lb 3.013 oz BMI 30.8 BP 110/62 Blood Pressure Location Rt brachial Position Sitting Pulse 87 Pulse Source Doppler Pulse Oximetry (%) 99 Oxygen Delivery Method Room Air Intake Visit Reasons: Asthma Cement Finisher Helper Required: Yes Cement Finisher Helper Name: Morelia Sweet C.L.Sohail Allergies tramadol [TRAMADOL] Allergy (Mild, Verified 03/20/24 13:48) RASH, Vomitting gabapentin [GABAPENTIN] Allergy (Unknown, Verified 03/20/24 13:48) UNKNOWN, rash, rash, vomiting Sulfa (Sulfonamide Antibiotics) [SULFA (SULFONAMIDE ANTIBIOTICS)] Allergy (Unknown, Verified 03/20/24 13:48) RASH, hives diphtheria,pertussis (acellular),te [TDAP] Adverse Reaction (Unknown, Verified 03/20/24 13:48) BODYACHES, NAUSEA morphine [MORPHINE] Adverse Reaction (Unknown, Verified 03/20/24 13:48) NAUSEA & VOMITING, N/V, vomiting HPI HPI Asthma: Details: 43-year-old lady, nonsmoker followed for severe persistent allergic asthma with multiple breakthrough episodes. She has been using Fasenra, Incruse, Symbicort, theophylline, Singulair, prednisone 10 mg daily, and duo nebs /albuterol with suboptimal control of her symptoms, particularly during the weeks 4-8 after Fasenra injections. Patient had previous good control, but d eveloped prior reactions to other agents used for immune therapy of asthma including Xolair, Nucala, Dupixent, and Tezspire. She denies recent acute exacerbations. Patient has been referred for bronchial thermoplasty and had 1st evaluation, patient is scheduled to continue evaluation at [facility] in May of 2024. However, as part of evaluation patient states that she was advised to discontinue all of her bronchodilator regimen and she now presents with acute exacerbation. [facility] Medical History Elevated liver transaminase level GERD (gastroesophageal reflux disease) Gastritis Acalculous cholecystitis Obesity (BMI 30.0-34.9) Fibromyalgia Environmental allergies Asthma Surgical History History of colonoscopy H/O: hysterectomy Hx of cholecystectomy Family History Father No problems noted. Mother HTN (hypertension) Maternal Aunt Breast cancer Brother No problems noted. Sister No problems noted. Son Mental health disorder Son Mental health disorder Son Mental health disorder Social History Housing: House Alcohol intake: current Alcohol intake frequency: does not drink Patient Tobacco Use Status: Never used Tobacco e-Cigarette/Vaping Use: Never Used Second Hand Smoke Exposure: No service: No Current occupational status: unemployed Cognitive needs: No Hearing needs: No Vision needs: No Review of Systems Const Denies daytime sleepiness, Denies excessive sweating, Denies fatigue, Denies fever(s), Denies lethargy, Denies malaise, Denies night sweats, Denies snoring and Denies weight loss Eyes Denies blurry vision and Denies itchy eyes ENT Denies nasal congestion, Denies post nasal drip, Denies sinus pain, Denies sinus pressure and Denies other ( Thrush) Card Denies chest pain, Denies pedal edema, Reports dyspnea, Reports dyspnea on exertion, Denies orthopnea and Denies paroxysmal nocturnal dyspnea Resp Denies cough, Denies hemoptysis, Denies excessive phlegm production, Reports dyspnea, Reports dyspnea on exertion, Denies snoring and Reports wheezing GI Denies abdominal pain and Denies heartburn Musc Denies myalgias, Denies arthralgias and Denies joint swelling Skin/Breast Denies rash Neuro Denies memory loss and Denies seizure-like activity Psych Denies abnormal sleep pattern, Denies anxiety and Denies memory loss Endo Denies excessive sweating, Denies fatigue and Denies heat intolerance Mitchell/Lymph Denies easy bruising Aller/Immun Denies itchy eyes, Denies seasonal rhinorrhea and Reports wheezing Physical Exam Vital Signs: Last Vital Signs Pulse 87 03/20/24 13:42 BP 110/62 03/20/24 13:42 Pulse Ox 99 03/20/24 13:42 Oxygen Delivery Method Room Air 03/20/24 13:42 BMI result Body Mass Index 30.8 Const General: no acute distress and alert Nutritional Appearance: not obese Orientation/consciousness: Other orientation findings ( oriented) HEENT Head: Yes atraumatic Eyes General: appearance normal, both eyes and all related structures Sclerae: sclerae normal EOM: EOMs intact bilaterally Neck Neck: Yes supple Lymphatic: no lymphadenopathy noted Resp Effort & Inspection: normal respiratory effort and no use of accessory muscles Auscultation: wheezes (Expiratory with poor bilateral air movement) Cardio Rate: regular rate Rhythm: regular rhythm Heart sounds: no gallops, no murmurs and no rubs Skin General skin exam: other ( warm) Extrem General: No clubbing, No cyanosis and No edema Office Meds methylprednisolone sod suc(PF) 125 mg/2 mL solution for injection Performing Provider: Steve Chan MD Performing Location: [facility] [place] Pulmonology Services Administered by: Mandy Sousa LPN on 03/20/24 14:28 Dose Route Admin Location Dispensed Lot Number Expiration Date [facility] Life Skills Specialist 125 mg IM 2 ea [id number] 03/28/26 [id number] [employer] Assessment & Plan Assessment & Plan (1) Severe persistent allergic asthma: Code(s): J45.50 - Severe persistent asthma, uncomplicated Category: Medical Plan: Now with an acute exacerbation, will treat with a prednisone pulse. Continue baseline regimen of Fasenra, duo nebs, Symbicort, theophylline, Spiriva, and albuterol MDI. Patient continues evaluation at [facility] for possible thermoplasty. (2) Environmental allergies: Code(s): Z91.09 - Other allergy status, other than to drugs and biological substances Category: Medical Plan: Improved control on Fasenra and loratadine. Continue current regimen. Orders: Orders AMB Methylprednisolone Sod Succ Injection Today J40 - Bronchitis, not specified as acute or chronic, J45.909 - Unspecified asthma, uncomplicated Medications: New prednisone 40 mg (2 x 20 mg) PO DAILY 10 tabs 0RF Coding Level of Care Code Est Pt Level 4 (14804) Diagnoses Severe persistent allergic asthma J45.50 Environmental allergies Z91.09
== END 2024-03-20 14:06 | disposition home or self-care (01) ==
PROVIDERS: PCP Internal Medicine; Visit Provider Internal Medicine Pulmonary Disease
DX: J45.909 Unspecified asthma, uncomplicated (principal); J40 Bronchitis, not specified as acute or chronic; J45.50 Severe persistent asthma, uncomplicated; Z91.09 Other allergy status, other than to drugs and biological substances
CPT/HCPCS: 99214

== ENCOUNTER → 2024-03-20 13:19 | Outpatient (BNVA) | payer OTHER, SELFPAY | PROVIDERS: PCP Internal Medicine; Visit Provider Internal Medicine Pulmonary Disease | DX: J40 Bronchitis, not specified as acute or chronic (principal); J45.50 Severe persistent asthma, uncomplicated; Z91.09 Other allergy status, other than to drugs and biological substances | CPT/HCPCS: 96372; 99212; J2919 ==

== ENCOUNTER 2024-03-25 09:37 | Outpatient (AMB) | payer OTHER, SELFPAY ==
[2024-03-25 09:42] VITALS: BP 110/67; PULSE 94; O2SAT 98
--- NOTE | 2024-03-25 09:42 | MHC.OFFVIS ---
Vital Signs 03/25/24 09:42 Height 5 ft 5 in BP 110/67 Blood Pressure Location Rt brachial Position Sitting Pulse 94 Pulse Source Doppler Pulse Oximetry (%) 98 Oxygen Delivery Method Room Air Intake Visit Reasons: Asthma Economics Teacher Required: Yes Economics Teacher Name: Morelia Sweet Nicolasa Allergies tramadol [TRAMADOL] Allergy (Mild, Verified 03/25/24 09:46) RASH, Vomitting gabapentin [GABAPENTIN] Allergy (Unknown, Verified 03/25/24 09:46) UNKNOWN, rash, rash, vomiting Sulfa (Sulfonamide Antibiotics) [SULFA (SULFONAMIDE ANTIBIOTICS)] Allergy (Unknown, Verified 03/25/24 09:46) RASH, hives diphtheria,pertussis (acellular),te [TDAP] Adverse Reaction (Unknown, Verified 03/25/24 09:46) BODYACHES, NAUSEA morphine [MORPHINE] Adverse Reaction (Unknown, Verified 03/25/24 09:46) NAUSEA & VOMITING, N/V, vomiting HPI HPI Asthma: Details: 43-year-old lady, nonsmoker followed for severe persistent allergic asthma with multiple breakthrough episodes. She has been using Fasenra, Incruse, Symbicort, theophylline, Singulair, prednisone 10 mg daily, and duo nebs /albuterol with suboptimal control of her symptoms, particularly during the weeks 4-8 after Fasenra injections. Patient had previous good control, but developed prior reactions to other agents used for immune therapy of asthma including Xolair, Nucala, Dupixent, and Tezspire. She denies recent acute exacerbations. Patient has been referred for bronchial thermoplasty and had 1st evaluation, patient is scheduled to continue evaluation at [facility] in May of 2024. However, as part of evaluation patient states that she was advised to discontinue all of her bronchodilator regimen and she now presents with acute exacerbation. After the last office visit patient is improving in terms of her acute exacerbation, however she is not back to her baseline. [facility] Medical History Elevated liver transaminase level GERD (gastroesophageal reflux disease) Gastritis Acalculous cholecystitis Obesity (BMI 30.0-34.9) Fibromyalgia Environmental allergies Asthma Surgical History History of colonoscopy H/O: hysterectomy Hx of cholecystectomy Family History Father No problems noted. Mother HTN (hypertension) Maternal Aunt Breast cancer Brother No problems noted. Sister No problems noted. Son Mental health disorder Son Mental health disorder Son Mental health disorder Social History Housing: House Alcohol intake: current Alcohol intake frequency: does not drink Patient Tobacco Use Status: Never used Tobacco e-Cigarette/Vaping Use: Never Used Second Hand Smoke Exposure: No service: No Current occupational status: unemployed Cognitive needs: No Hearing needs: No Vision needs: No Review of Systems Const Denies daytime sleepiness, Denies excessive sweating, Denies fatigue, Denies fever(s), Denies lethargy, Denies malaise, Denies night sweats, Denies snoring and Denies weight loss Eyes Denies blurry vision and Denies itchy eyes ENT Denies nasal congestion, Denies post nasal drip, Denies sinus pain, Denies sinus pressure and Denies other ( Thrush) Card Denies chest pain, Denies pedal edema, Denies dyspnea, Denies orthopnea and Denies paroxysmal nocturnal dyspnea Resp Denies cough, Denies hemoptysis, Denies excessive phlegm production, Denies dyspnea, Denies snoring and Reports wheezing GI Denies abdominal pain and Denies heartburn Musc Denies myalgias, Denies arthralgias and Denies joint swelling Skin/Breast Denies rash Neuro Denies memory loss and Denies seizure-like activity Psych Denies abnormal sleep pattern, Denies anxiety and Denies memory loss Endo Denies excessive sweating, Denies fatigue and Denies heat intolerance Mitchell/Lymph Denies easy bruising Aller/Immun Denies itchy eyes, Denies seasonal rhinorrhea and Reports wheezing Physical Exam Vital Signs: Last Vital Signs Pulse 94 03/25/24 09:42 BP 110/67 03/25/24 09:42 Pulse Ox 98 03/25/24 09:42 Oxygen Delivery Method Room Air 03/25/24 09:42 Const General: no acute distress and alert Nutritional Appearance: not obese Orientation/consciousness: Other orientation findings ( oriented) HEENT Head: Yes atraumatic Eyes General: appearance normal, both eyes and all related structures Sclerae: sclerae normal EOM: EOMs intact bilaterally Neck Neck: Yes supple Lymphatic: no lymphadenopathy noted Resp Effort & Inspection: normal respiratory effort and no use of accessory muscles Auscultation: wheezes (Expiratory bilateral) Cardio Rate: regular rate Rhythm: regular rhythm Heart sounds: no gallops, no murmurs and no rubs Skin General skin exam: other ( warm) Extrem General: No clubbing, No cyanosis and No edema Assessment & Plan Assessment & Plan (1) Severe persistent allergic asthma: Code(s): J45.50 - Severe persistent asthma, uncomplicated Category: Medical Plan: Improving ongoing acute exacerbation, now with better air movement. Well continue with prednisone taper and baseline regimen of Fasenra, Symbicort, Spiriva, theophylline, duo nebs, and albuterol MDI. (2) Environmental allergies: Code(s): Z91.09 - Other allergy status, other than to drugs and biological substances Category: Medical Plan: Reasonable control on Fasenra and Singulair. Continue current regimen. Medications: New prednisone Take 3 tabs daily for 5 days, go by 1 tab every 5 days 10 mg PO DIRECTED 30 tabs 0RF Discontinued prednisone Discontinued Reason: Doctor's Order 40 mg (2 x 20 mg) PO DAILY 10 tabs 0RF Coding Level of Care Code Est Pt Level 4 (18021) Diagnoses Severe persistent allergic asthma J45.50 Environmental allergies Z91.09
== END 2024-03-25 09:52 | disposition home or self-care (01) ==
PROVIDERS: PCP Internal Medicine; Visit Provider Internal Medicine Pulmonary Disease
DX: J45.50 Severe persistent asthma, uncomplicated (principal); Z91.09 Other allergy status, other than to drugs and biological substances
CPT/HCPCS: 99214

== ENCOUNTER → 2024-03-25 09:37 | Outpatient (BNVA) | payer OTHER, SELFPAY | PROVIDERS: PCP Internal Medicine; Visit Provider Internal Medicine Pulmonary Disease | DX: J45.50 Severe persistent asthma, uncomplicated (principal); Z91.09 Other allergy status, other than to drugs and biological substances | CPT/HCPCS: 99212 ==

== ENCOUNTER 2024-11-21 14:44 | Outpatient (AMB) | payer OTHER, SELFPAY ==
[2024-11-21 14:48] VITALS: BP 102/70; PULSE 85; O2SAT 98; BMI 31.5
--- NOTE | 2024-11-21 14:48 | A.OFFVIS_ITS ---
Vital Signs 11/21/24 14:48 Height 5 ft 5 in Weight 189 lb 9.561 oz BMI 31.5 BP 102/70 Blood Pressure Location Lt brachial Position Sitting Pulse 85 Pulse Source Pulse Oximeter Pulse Oximetry (%) 98 Oxygen Delivery Method Room Air Intake Visit Reasons: asthma Forest Law And Policy Professor Required: No Forest Law And Policy Professor Name: [id number] Carlos Allergies tramadol [TRAMADOL] Allergy (Mild, Verified 11/21/24 14:50) RASH, Vomitting gabapentin [GABAPENTIN] Allergy (Unknown, Verified 11/21/24 14:50) UNKNOWN, rash, rash, vomiting Sulfa (Sulfonamide Antibiotics) [SULFA (SULFONAMIDE ANTIBIOTICS)] Allergy (Unknown, Verified 11/21/24 14:50) RASH, hives diphtheria,pertussis (acellular),te [TDAP] Adverse Reaction (Unknown, Verified 11/21/24 14:50) BODYACHES, NAUSEA morphine [MORPHINE] Adverse Reaction (Unknown, Verified 11/21/24 14:50) NAUSEA & VOMITING, N/V, vomiting HPI HPI asthma: Details: 44-year-old lady, nonsmoker followed for severe persistent allergic asthma with multiple breakthrough episodes. She has been using Fasenra, Incruse, Symbicort, theophylline, Singulair, prednisone 10 mg daily, and duo nebs /albuterol with suboptimal control of her symptoms, particularly during the weeks 4-8 after Fasenra injections. Patient had previous good control, but dev eloped prior reactions to other agents used for immune therapy of asthma including Xolair, Nucala, Dupixent, and Tezspire. She denies recent acute exacerbations. Patient has been referred for bronchial thermoplasty and had 1st evaluation, however she is not able to continue going up secondary to difficulties with transportation. Today she is complaining of orthopnea, lower extremity edema, and dyspnea on exertion. [facility] Medical History Elevated liver transaminase level GERD (gastroesophageal reflux disease) Gastritis Acalculous cholecystitis Obesity (BMI 30.0-34.9) Fibromyalgia Environmental allergies Asthma Surgical History History of colonoscopy H/O: hysterectomy Hx of cholecystectomy Family History Father No problems noted. Mother HTN (hypertension) Maternal Aunt Breast cancer Brother No problems noted. Sister No problems noted. Son Mental health disorder Son Mental health disorder Son Mental health disorder Social History Housing: House Alcohol intake: current Alcohol intake frequency: does not drink Patient Tobacco Use Status: Never used Tobacco e-Cigarette/Vaping Use: Never Used Second Hand Smoke Exposure: No service: No Current occupational status: unemployed Cognitive needs: No Hearing needs: No Vision needs: No Review of Systems Const Denies daytime sleepiness, Denies excessive sweating, Denies fatigue, Denies fever(s), Denies lethargy, Denies malaise, Denies night sweats, Denies snoring and Denies weight loss Eyes Denies blurry vision and Denies itchy eyes ENT Denies nasal congestion, Denies post nasal drip, Denies sinus pain, Denies sinus pressure and Denies other ( Thrush) Card Denies chest pain, Reports pedal edema, Denies dyspnea, Reports dyspnea on exertion, Reports orthopnea and Denies paroxysmal nocturnal dyspnea Resp Denies cough, Denies hemoptysis, Denies excessive phlegm production, Denies dyspnea, Reports dyspnea on exertion, Denies snoring and Denies wheezing GI Denies abdominal pain and Denies heartburn Musc Denies myalgias, Denies arthralgias and Denies joint swelling Skin/Breast Denies rash Neuro Denies memory loss and Denies seizure-like activity Psych Denies abnormal sleep pattern, Denies anxiety and Denies memory loss Endo Denies excessive sweating, Denies fatigue and Denies heat intolerance Mitchell/Lymph Denies easy bruising Aller/Immun Denies itchy eyes, Denies seasonal rhinorrhea and Denies wheezing Physical Exam Vital Signs: Last Vital Signs Pulse 85 11/21/24 14:48 BP 102/70 11/21/24 14:48 Pulse Ox 98 11/21/24 14:48 Oxygen Delivery Method Room Air 11/21/24 14:48 BMI result Body Mass Index 31.5 Const General: no acute distress and alert Nutritional Appearance: not obese Orientation/consciousness: Other orientation findings ( oriented) HEENT Head: Yes atraumatic Eyes General: appearance normal, both eyes and all related structures Sclerae: sclerae normal EOM: EOMs intact bilaterally Neck Neck: Yes supple Lymphatic: no lymphadenopathy noted Resp Effort & Inspection: normal respiratory effort and no use of accessory muscles Auscultation: clear to auscultation bilaterally Cardio Rate: regular rate Rhythm: regular rhythm Heart sounds: no gallops, no murmurs and no rubs Skin General skin exam: other ( warm) Extrem General: No clubbing, No cyanosis and Yes edema (Trace bilateral) Assessment & Plan Assessment & Plan (1) Severe persistent allergic asthma: Code(s): J45.50 - Severe persistent asthma, uncomplicated Category: Medical Plan: At this time reasonably controlled on current regimen of Symbicort, Incruse, theophylline, duo nebs, and albuterol MDI. Continue current regimen. (2) Environmental allergies: Code(s): Z91.09 - Other allergy status, other than to drugs and biological substances Category: Medical Plan: At this time controlled on Singulair. Continue current regimen. (3) Orthopnea: Code(s): R06.01 - Orthopnea Category: Medical Plan: Now with worsening orthopnea and lower extremity edema, will start on empiric Lasix 40 mg daily. Medications: New furosemide 40 mg PO QAM 30 tabs 3RF Coding Level of Care Code Est Pt Level 4 (79179) Complex EM visit Add On G2211 Diagnoses Severe persistent allergic asthma J45.50 Environmental allergies Z91.09 Orthopnea R06.01
--- OUTSIDE RECORDS SUMMARY | 2024-11-21 15:27 | XMS_ITS | Referral Summary ---
Author Organization [facility] Address [address] [place] [address] Care Team Providers Care Legal Collector Name Role Phone Jo Thakur Primary Care Provider [phone] Allergies Active Allergy Reactions Criticality Noted Date Comments Diphtheria,Pertussis (Acellular),Tetanus Vaccine Muscle Pain,Nausea 03/10/2024 Gabapentin Rash,Vomiting 03/10/2024 Morphine Nausea,Vomiting 03/10/2024 Sulfa (Sulfonamide Antibiotics) Hives 02/27 Tramadol Rash,Vomiting 03/10/2024 Medications Ventolin HFA 90 mcg/actuation inhaler Inhale 1 puff by mouth every 6 hours as needed for wheezing or shortness of breath. Active Fasenra 30 mg/mL injection Inject 30 mg under the skin every 2 months. 4 Active ipratropium-alb uteroL (DUO-NEB) 0.5-2.5 mg/3 mL nebulizer solution Inhale 3 mL via nebulizer every 6 hours as needed for wheezing or shortness of breath. 4 Active montelukast (SINGULAIR) 10 mg tablet Take 10 mg by mouth daily. Active predniSONE (DELTASONE) 10 mg tablet Take 10 mg by mouth once a day. 4 Active umeclidinium (Incruse Ellipta) 62.5 mcg/actuation blister with device Inhale 62.5 mcg by mouth once a day. Active budesonide-form oteroL (SYMBICORT) 160-4.5 mcg inhaler Inhale 2 puffs by mouth once a day. Rinse mouth with water after use. Do not swallow. Active theophylline ER (THEODUR) 200 mg tablet Take 400 mg by mouth once a day. Active Active Problems Problem Noted Date Diagnosed Date Acalculous cholecystitis 03/10/2024 Fibromyalgia 03/10/2024 GERD (gastroesophageal reflux disease) 4 Persistent asthma without complication 0 Social History Tobacco Use Types Packs/Day Years Used Date Smoking Tobacco: Never Smokeless Tobacco: Never Tobacco Cessation:Counseling Given: Not Answered Comments Unknown Sex and Gender Information Value Date Recorded Sex Assigned at Female 10/16/2023 4:17 PM EDT Legal Sex Female 9:23 AM EDT Gender Identity Not on file Sexual Orientation Not on file Last Filed Vital Signs Vital Sign Reading Time Taken Comments Blood Pressure 122/80 03/10/2024 10:05 AM EDT Pulse 72 03/10/2024 10:05 AM EDT Temperature - - Respiratory Rate 18 03/10/2024 10:05 AM EDT Oxygen Saturation 98% 03/10/2024 10:05 AM EDT Inhaled Oxygen Concentration - - Weight 84 kg (185 lb 3.2 oz) 03/10/2024 10:05 AM EDT Height - - Body Mass Index - - Plan of Treatment Not on file [place] [id number] Care Teams Legal Collector Relationship Specialty Start Date End Date Jo Thakur [address] [place] [address] [place] [address] PCP - General Internal Medicine 10/22/23
--- OUTSIDE RECORDS SUMMARY | 2024-11-21 15:27 | XMS_ITS | Clinical Summary ---
Author Organization [facility] Address [address] [place] [address] Care Team Providers Care Tire Service Supervisor Name Role Phone Jo Thakur Primary Care Provider [phone] Allergies Active Allergy Reactions Criticality Noted Date [...] Mass Index - - Plan of Treatment Health Maintenance Due Date Last Done Comments Cervical Cancer Screening 1981 HIV Screening 1981 HPV and Pap Smear 1981 Hepatitis C Screening 1981 Pap Smear 1981 Varicella Vaccines (1 of 2 - 13+ 2-dose series) 1994 Hepatitis B Vaccines (1 of 3 - 19+ 3-dose series) 2000 Pneumococcal Vaccine: Pediat shelton (0-5 Years) and At-Risk Patients (6-50 Years) (2 of 2 - PCV) 01/14/2020 01/13/2019 Mammogram 2021 COVID-19 Vaccine (3 - 2023- season) 03/30/202401/2021, 02/02/2021 Alcohol/Substance Use Screening 07/30/2024 Depression Screening and Follow-Up 07/30/2024 Social Drivers of Health Annual Screening 07/30/2024 Influenza Vaccine (Season Ended) 2025 05/10/20 18 DTaP,Tdap,and Td Vaccines (2 - Td or Tdap) 05/21/2027 05/21/2017 RSV Vaccine (60+ years old a nd patients) (1 - 1-dose 75+ series) 2056 Insurance [facility] MEDICAID Care Teams Tire Service Supervisor Relationship Specialty Start Date End Date Jo Thakur [address] [place] [address] [place] [address] PCP - General Internal Medicine 10/22/23
== END 2024-11-21 15:08 | disposition home or self-care (01) ==
LOC: HO.HPS 14:45
PROVIDERS: PCP Internal Medicine; Visit Provider Internal Medicine Pulmonary Disease
DX: J45.50 Severe persistent asthma, uncomplicated (principal); Z91.09 Other allergy status, other than to drugs and biological substances; R06.01 Orthopnea
CPT/HCPCS: 99214; G2211

== ENCOUNTER → 2024-11-21 14:44 | Outpatient (BNVA) | payer OTHER, SELFPAY | PROVIDERS: PCP Internal Medicine; Visit Provider Internal Medicine Pulmonary Disease | DX: J45.50 Severe persistent asthma, uncomplicated (principal); R06.01 Orthopnea; Z91.09 Other allergy status, other than to drugs and biological substances | CPT/HCPCS: 99212 ==

== ENCOUNTER 2025-03-26 09:24 | Outpatient (AMB) | payer OTHER, SELFPAY ==
[2025-03-26 09:33] VITALS: BP 100/60; PULSE 82; O2SAT 98
--- NOTE | 2025-03-26 09:33 | A.OFFVIS_ITS ---
Vital Signs 03/26/25 09:33 Weight 181 lb 14.102 oz BP 100/60 Blood Pressure Location Lt brachial Position Sitting Pulse 82 Pulse Source Pulse Oximeter Pulse Oximetry (%) 98 Oxygen Delivery Method Room Air Intake Visit Reasons: Asthma Allergies tramadol (TRAMADOL) Allergy (Mild, Verified 03/26/25 09:37) RASH, Vomitting gabapentin (GABAPENTIN) Allergy (Unknown, Verified 03/26/25 09:37) UNKNOWN, rash, rash, vomiting Sulfa (Sulfonamide Antibiotics) (SULFA (SULFONAMIDE ANTIBIOTICS)) Allergy (Unknown, Verified 03/26/25 09:37) RASH, hives diphtheria,pertussis (acellular),te (TDAP) Adverse Reaction (Unknown, Verified 03/26/25 09:37) BODYACHES, NAUSEA morphine (MORPHINE) Adverse Reaction (Unknown, Verified 03/26/25 09:37) NAUSEA & VOMITING, N/V, vomiting Medication List - Last Reconciled 03/26/25 by Mindi Crowder LPN albuterol sulfate 90 mcg/actuation 2 puffs inhalation Q4-6H PRN 30 days duloxetine 60 mg PO DAILY famotidine 40 mg PO DAILY furosemide 40 mg PO QAM ibuprofen 800 mg PO .qd PRN ipratropium-albuterol 0.5 mg-3 mg(2.5 mg base)/3 mL 3 mL inhalation Q6H PRN lidocaine 5% (Lidoderm) 1 patch topical DAILY PRN MDD remove after 12 hours loratadine (Claritin) 10 mg PO DAILY PRN magnesium 250 mg PO DAILY montelukast 10 mg PO DAILY prednisone 10 mg PO DIRECTED prednisone 10 mg PO DAILY Symbicort 160-4.5 mcg/actuation (budesonide-formoterol) 2 puffs inhalation BID 30 days NS theophylline ER 400 mg PO DAILY 30 days tiotropium bromide 2.5 mcg/actuation (Spiriva Respimat) 2 puffs inhalation QAM 30 days umeclidinium 62.5 mcg/actuation (Incruse Ellipta) 1 inh inhalation DAILY 30 days HPI HPI Asthma: Details: 44-year-old lady, nonsmoker followed for severe persistent allergic asthma with multiple breakthrough episodes. She has been using Fasenra, Incruse, Symbicort, theophylline, Singulair, prednisone 10 mg daily, and duo nebs /albuterol with suboptimal control of her symptoms, particularly during the weeks 4-8 after Fasenra injections. Patient had previous good control, but developed prior reactions to other agents used for immune therapy of asthma including Xolair, Nucala, Dupixent, and Tezspire. She denies recent acute exacerbations. Patient has been referred for bronchial thermoplasty to [email or web address] and had 1st evaluation, however she is not able to continue going up secondary to difficulties with transportation, though she remains interested in that modality. [facility] Medical History Elevated liver transaminase level GERD (gastroesophageal reflux disease) Gastritis Acalculous cholecystitis Obesity (BMI 30.0-34.9) Fibromyalgia Environmental allergies Asthma Surgical History History of colonoscopy H/O: hysterectomy Hx of cholecystectomy Family History Father No problems noted. Mother HTN (hypertension) Maternal Aunt Breast cancer Brother No problems noted. Sister No problems noted. Son Mental health disorder Son Mental health disorder Son Mental health disorder Social History Housing: House Alcohol intake: current Alcohol intake frequency: does not drink Patient Tobacco Use Status: Never used Tobacco e-Cigarette/Vaping Use: Never Used Second Hand Smoke Exposure: No service: No Current occupational status: unemployed Cognitive needs: No Hearing needs: No Vision needs: No Review of Systems Const Denies daytime sleepiness, Denies excessive sweating, Denies fatigue, Denies fever(s), Denies lethargy, Denies malaise, Denies night sweats, Denies snoring and Denies weight loss Eyes Denies blurry vision and Denies itchy eyes ENT Denies nasal congestion, Denies post nasal drip, Denies sinus pain, Denies sinus pressure and Denies other ( Thrush) Card Denies chest pain, Denies pedal edema, Denies dyspnea, Denies orthopnea and Denies paroxysmal nocturnal dyspnea Resp Denies cough, Denies hemoptysis, Denies excessive phlegm production, Denies dyspnea, Denies snoring and Reports wheezing GI Denies abdominal pain and Denies heartburn Musc Denies myalgias, Denies arthralgias and Denies joint swelling Skin/Breast Denies rash Neuro Denies memory loss and Denies seizure-like activity Psych Denies abnormal sleep pattern, Denies anxiety and Denies memory loss Endo Denies excessive sweating, Denies fatigue and Denies heat intolerance Mitchell/Lymph Denies easy bruising Aller/Immun Denies itchy eyes, Denies seasonal rhinorrhea and Reports wheezing Physical Exam Vital Signs: Last Vital Signs Pulse 82 03/26/25 09:33 BP 100/60 03/26/25 09:33 Pulse Ox 98 03/26/25 09:33 Oxygen Delivery Method Room Air 03/26/25 09:33 Const General: no acute distress and alert Nutritional Appearance: not obese Orientation/consciousness: Other orientation findings ( oriented) HEENT Head: Yes atraumatic Eyes General: appearance normal, both eyes and all related structures Sclerae: sclerae normal EOM: EOMs intact bilaterally Neck Neck: Yes supple Lymphatic: no lymphadenopathy noted Resp Effort & Inspection: normal respiratory effort and no use of accessory muscles Auscultation: clear to auscultation bilaterally Cardio Rate: regular rate Rhythm: regular rhythm Heart sounds: no gallops, no murmurs and no rubs Skin General skin exam: other ( warm) Extrem General: No clubbing, No cyanosis and No edema Assessment & Plan Assessment & Plan (1) Severe persistent allergic asthma: Code(s): J45.50 - Severe persistent asthma, uncomplicated Category: Medical Plan: Suboptimal control despite essentially maximum therapy with Symbicort, Incruse, theophylline, duo nebs, and albuterol MDI. Has been tried on multiple injectables with improved controlled, but with development of allergic reactions necessitating stopping immunologic therapy. Will refer to [facility] for thermoplasty evaluation. (2) Environmental allergies: Code(s): Z91.09 - Other allergy status, other than to drugs and biological substances Category: Medical Plan: Suboptimal control, but not able to tolerate immunologic injectable therapy. Continue Singulair. Coding Level of Care Code Est Pt Level 4 (65181) Complex EM visit Add On G2211 Diagnoses Severe persistent allergic asthma J45.50 Environmental allergies Z91.09
--- OUTSIDE RECORDS SUMMARY | 2025-03-26 10:28 | XMS_ITS | Patient Health Record ---
Author Organization [facility] Address [address] [place] [address] Care Team Providers Care Counter Server Name Role Phone NONE, NONE Primary Care Provider Mario Prather Unavailable [phone] Allergies Allergen (clinical drug ingredient) Drug/Non Drug Allergy documented on EMR Reaction Allergy Type Onset Date Status Sulfa Unknown Drug Allergy Active morphine Morphine Sulfate Unknown Drug Allergy Active gabapentin Gabapentin Unknown Drug Allergy Activ e Reason For Referral No Information Medications Medication SIG (Take, Route, Fr equency, Duration) Notes Start Date End Date Status PROzac 40 MG 1 capsule Orally Once a day Active Omeprazole 20 MG 1 capsule Orally BID --with breakfast and supper for 30 day(s) 01/11/2018 Active Omeprazole 20 MG 1 capsule Orally Once a day Active Famotidine 20 MG 1 tablet at bedtime Orally Once a day Active Ondansetron HCl 8 MG Orally Active Senna 8.6 MG 1-2 capsules at bedt joe as needed Orally Once a day Active Social History Tobacco Use: Social History Observation Description Date Details (start date - stop date) Never Smoker NA - NA Tobacco Use/Smoking Question Answer Notes Patient is a nonsmoker Alcohol Screen Question Answer Notes Did you have a drink containing alcohol in the p ast year? No Points 0 Interpretation Negative Section Notes: Nonsmoker; no sig alcohol Problems Problem Type SNOMED Code ICD Code Onset Dates Problem Status W/U Status Risk Notes Problem 91403022 Epigastric abdom inal pain (R10.13) Active confirmed Problem 42553283 Epigastric pain (R10.13) Active confirmed Problem 684534692 Elevated liver enzymes (R74.8) Active confirmed Problem 989227143 Gastroesophageal reflux disease, esophagitis presence not specified (K21.9) Active confirmed Plan Of Treatment Pending Test Test Name Order Date SMOOTH MUSCLE ANTIBODIES 01/11/2018 NUC HIDA SCAN 02/16/2018 Future Test Test Name Order Date UPPER GI ENDOSCOPY 01/11/2018 Insurance Providers Payer Name Payer Address Payer Phone Subscriber Number Group Number Insured Name Patient Relationship to Insured Coverage Start Date Coverage End Date [facility] [employer] [facility] [address] [address] [place], [place] [phone] [id number] FATUMA GONZALEZ Self - patient is the insured Medical (General) History Medical History History ICD Code Denies [place],DM,CVA,Lung disease,renal dise ase EGD [place] [address] Landa- --minimal changes of reflux, gastritis with H.pylori--does not recall being treated for the H.pylori Colonoscopy in 2011 alessandra Landa--ne gative Depression 2 negative GB U/S's except for a contrac jayne GB --no stones Surgical History Surgery Date(Month/Year) Partial hysterectomy
--- OUTSIDE RECORDS SUMMARY | 2025-03-26 10:28 | XMS_ITS | Clinical Summary ---
Author Organization [facility] Address [address] [facility] [address] [place] [address] Phone Care Team Providers Care Quality Control Lead Name Role Phone Jarett Porras MD Primary Care Provider [phone] Allergies No known active allergies Medications cetirizine (ZYRTEC) 10 MG tablet Take 10 mg by mouth daily. Active montelukast (SINGULAIR) 10 mg tablet Take 10 mg by mouth nightly at bedtime. Active salmeteroL (SEREVENT DISKUS) 50 mcg/dose diskus inhaler Inhale 1 puff into the lungs 2 (two) times a day. Active tiotropium bromide (SPIRIVA RESPIMAT) 2.5 mcg/actuation mist for inhalation Inhale 5 mcg into the lungs daily. Active fluticasone propionate (FLOVENT HFA) 220 mcg/actuation inhaler Inhale 1 puff into the lungs 2 (two) times a day. Active albuterol 90 mcg/actuation inhaler Inhale 2 puffs into the lungs every 6 (six) hours as needed for wheezing. Active ibuprofen (ADVIL,MOTRIN) 400 MG tablet Take 400 mg by mouth every 6 (six) hours as needed for pain (specific location in comments). Active DULoxetine (CYMBALTA) 60 MG capsule Take 60 mg by mouth daily. Active Active Problems Problem Noted Date Diagnosed Date Persistent asthma without complication 0 Environmental and seasonal allergies 10/27/2019 Family History Medical History Relation Comments Asthma Son Relation Status Comments Son Social History Tobacco Use Types Packs/Day Years Used Date Smoking Tobacco: Never Smokeless Tobacco: Never Education Answer Date Recorded Are you interested in more education? Not on carmen e 11/24/2022 Are you concerned about learning? Not on file 11/24/2022 No 11/24/2022 No 11/24/2022 Digital Access Answer Date Recorded No 12/23/2022 No 12/23/2022 No 12/23/2022 Reliable internet access at home? Not on file 12/23/2022 Device with a working camera? Not on file Comments Unknown Sex and Gender Information Value Date Recorded Sex Assigned at Not on file Legal Sex Female 3:21 PM EST Gender Identity Not on file Sexual Orientation Not on file Plan of Treatment Health Maintenance Due Date Last Done Comments DEPRESSION SCREENING 1993 HEPATITIS C SCREENING 1999 HIV ONE-TIME SCREENING (18-6 5 YEARS) 1999 PAP SMEAR 2002 PNEUMOCOCCAL VACCINES (0-49 years) (2 of 2 - PCV) 01/14/2020 01/13/2019 MAMMOGRAM 2021 COVID-19 VACCINE (3 - 2023-2 5 season) 2024 03/05/2021, 02/02/2021 Adult Td,Tdap Booster 05/21/2027 05/21/2017 SMOKING STATUS SCREENING (On ce After 26 Yrs) Completed 10/27/2019 HEPATITIS A VACCINES Aged Out No long er eligible based on patient's age to complete this topic HIB VACCINES Aged Out No longer eligi ble based on patient's age to complete this topic MENINGOCOCCAL VACCINES (ACWY) Aged Out No longer eligible based on patient's age to complete this topic MENINGOCOCCAL VACCINES (B) Aged Out N o longer eligible based on patient's age to complete this topic Medical Devices Not on file Insurance [facility] ACO ACO ACO ACO ACO [place] [address] [place] [address] ACO Care Teams Quality Control Lead Relationship Specialty Start Date End Date Jarett Porras MD [email or web address] PCP - General Internal Medicine 08/21/19 Additional Source Comments The information contained in this document represents components of the legal health record. It is not the complete legal health record.[facility]
--- OUTSIDE RECORDS SUMMARY | 2025-03-26 10:28 | XMS_ITS | Clinical Summary ---
Author Organization [facility] Address [address] [place] [address] Care Team Providers Care Representative Name Role Phone Jo Thakur Primary Care Provider [phone] Allergies Active Allergy Reactions Criticality Noted Date [...] 03/10/2024 Fibromyalgia 03/10/2024 GERD (gastroesophageal reflux disease) Persistent asthma without complication 0 Social History [...] of Health Annual Screening 07/30/2024 Influenza Vaccine (#1) 2025 05/10/2018 DTaP,Tdap,and Td Vaccines (2 - Td or Tdap) 05/21/2027 05/21/2017 RSV Vaccine (60+ years old a nd patients) (1 - 1-dose 75+ series) 2056 Insurance [employer] Care Teams Representative Relationship Specialty Start Date End Date Jo Thakur [address] [place] [address] [place] [address] PCP - General Internal Medicine 10/22/23
== END 2025-03-26 09:55 | disposition home or self-care (01) ==
PROVIDERS: PCP Internal Medicine; Visit Provider Internal Medicine Pulmonary Disease
DX: J45.50 Severe persistent asthma, uncomplicated (principal); Z91.09 Other allergy status, other than to drugs and biological substances
CPT/HCPCS: 99214

== ENCOUNTER → 2025-03-26 09:24 | Outpatient (BNVA) | payer OTHER, SELFPAY | PROVIDERS: PCP Internal Medicine; Visit Provider Internal Medicine Pulmonary Disease | DX: J45.50 Severe persistent asthma, uncomplicated (principal); Z91.09 Other allergy status, other than to drugs and biological substances | CPT/HCPCS: 99212 ==

== ENCOUNTER 2025-05-28 09:32 | Outpatient (AMB) | payer OTHER, SELFPAY ==
[2025-05-28 09:39] VITALS: BP 122/67; PULSE 100; O2SAT 98; BMI 30.4
--- NOTE | 2025-05-28 09:39 | A.OFFVIS_ITS ---
Vital Signs 05/28/25 09:39 Height 5 ft 5 in Weight 183 lb BMI 30.4 BP 122/67 Blood Pressure Location Rt brachial Position Sitting Pulse 100 Pulse Source Pulse Oximeter Pulse Oximetry (%) 98 Oxygen Delivery Method Room Air Intake Visit Reasons: Asthma Assistant Statistician Required: Yes Assistant Statistician Name: Morelia Baldwin Allergies tramadol (TRAMADOL) Allergy (Mild, Verified 05/28/25 09:47) RASH, Vomitting gabapentin (GABAPENTIN) Allergy (Unknown, Verified 05/28/25 09:47) UNKNOWN, rash, rash, vomiting Sulfa (Sulfonamide Antibiotics) (SULFA (SULFONAMIDE ANTIBIOTICS)) Allergy (Unknown, Verified 05/28/25 09:47) RASH, hives diphtheria,pertussis (acellular),te (TDAP) Adverse Reaction (Unknown, Verified 05/28/25 09:47) BODYACHES, NAUSEA morphine (MORPHINE) Adverse Reaction (Unknown, Verified 05/28/25 09:47) NAUSEA & VOMITING, N/V, vomiting HPI HPI Asthma: Details: 45-year-old lady, nonsmoker followed for severe persistent allergic asthma with multiple breakthrough episodes. She has been using Fasenra, Incruse, Symbicort, theophylline, Singulair, prednisone 10 mg daily, and duo nebs /albuterol with suboptimal control of her symptoms, particularly during the weeks 4-8 after Fasenra injections. Patient had previous good control, but de veloped prior reactions to other agents used for immune therapy of asthma including Xolair, Nucala, Dupixent, and Tezspire. She denies recent acute exacerbations. Patient has been referred for bronchial thermoplasty, however was noted not to be candidate secondary to concern for vocal cord dysfunction. [facility] Medical History Elevated liver transaminase level GERD (gastroesophageal reflux disease) Gastritis Acalculous cholecystitis Obesity (BMI 30.0-34.9) Fibromyalgia Environmental allergies Asthma Surgical History History of colonoscopy H/O: hysterectomy Hx of cholecystectomy Family History Father No problems noted. Mother HTN (hypertension) Maternal Aunt Breast cancer Brother No problems noted. Sister No problems noted. Son Mental health disorder Son Mental health disorder Son Mental health disorder Social History Housing: House Alcohol intake: current Alcohol intake frequency: does not drink Patient Tobacco Use Status: Never used Tobacco e-Cigarette/Vaping Use: Never Used Second Hand Smoke Exposure: No service: No Current occupational status: unemployed Cognitive needs: No Hearing needs: No Vision needs: No Review of Systems Const Denies daytime sleepiness, Denies excessive sweating, Denies fatigue, Denies fever(s), Denies lethargy, Denies malaise, Denies night sweats, Denies snoring and Denies weight loss Eyes Denies blurry vision and Denies itchy eyes ENT Denies nasal congestion, Denies post nasal drip, Denies sinus pain, Denies sinus pressure and Denies other ( Thrush) Card Denies chest pain, Denies pedal edema, Denies dyspnea, Denies orthopnea and Denies paroxysmal nocturnal dyspnea Resp Denies cough, Denies hemoptysis, Denies excessive phlegm production, Denies dyspnea, Denies snoring and Denies wheezing GI Denies abdominal pain and Denies heartburn Musc Denies myalgias, Denies arthralgias and Denies joint swelling Skin/Breast Denies rash Neuro Denies memory loss and Denies seizure-like activity Psych Denies abnormal sleep pattern, Denies anxiety and Denies memory loss Endo Denies excessive sweating, Denies fatigue and Denies heat intolerance Mitchell/Lymph Denies easy bruising Aller/Immun Denies itchy eyes, Denies seasonal rhinorrhea and Denies wheezing Physical Exam Vital Signs: Last Vital Signs Pulse 100 05/28/25 09:39 BP 122/67 05/28/25 09:39 Pulse Ox 98 05/28/25 09:39 Oxygen Delivery Method Room Air 05/28/25 09:39 BMI result Body Mass Index 30.4 Const General: no acute distress and alert Nutritional Appearance: not obese Orientation/consciousness: Other orientation findings ( oriented) HEENT Head: Yes atraumatic Eyes General: appearance normal, both eyes and all related structures Sclerae: sclerae normal EOM: EOMs intact bilaterally Neck Neck: Yes supple Lymphatic: no lymphadenopathy noted Resp Effort & Inspection: normal respiratory effort and no use of accessory muscles Auscultation: clear to auscultation bilaterally Cardio Rate: regular rate Rhythm: regular rhythm Heart sounds: no gallops, no murmurs and no rubs Skin General skin exam: other ( warm) Extrem General: No clubbing, No cyanosis and No edema Assessment & Plan Assessment & Plan (1) Severe persistent allergic asthma: Code(s): J45.50 - Severe persistent asthma, uncomplicated Category: Medical Plan: Suboptimal control on Symbicort, Spiriva, duo nebs, theophylline, Singulair, and albuterol MDI. Will try again on immunologic therapy with premedication. (2) Environmental allergies: Code(s): Z91.09 - Other allergy status, other than to drugs and biological substances Category: Medical Plan: Expect to improve on immunologic therapy. Coding Level of Care Code Est Pt Level 4 (52757) Diagnoses Severe persistent allergic asthma J45.50 Environmental allergies Z91.09
--- OUTSIDE RECORDS SUMMARY | 2025-05-28 11:01 | XMS_ITS | Clinical Summary ---
Author Organization [facility] Address [address] [place] [address] Care Team Providers Care Radial Arm Saw Operator Name Role Phone Jo Thakur Primary Care Provider [phone] Allergies Active Allergy Reactions Criticality Noted Date [...] 19+ 3-dose series) 2000 Pneumococcal Vaccine: Pediat hselton (0-5 Years) and At-Risk Patients (6-50 Years) (2 of 2 - PCV) 01/14/2020 01/13/2019 Mammogram 2021 Alcohol/Substance Use Screening 07/30/2024 Depression Screening and Follow-Up 07/30/2024 Social Drivers of Health Annual Screening 07/30/2024 COVID-19 Vaccine (3 - 2024- season) 03/30/202501/2021, 02/02/2021 Influenza Vaccine (#1) 2025 05/10/2018 DTaP,Tdap,and Td Vaccines (2 - Td or Tdap) 05/21/2027 05/21/2017 RSV Vaccine (60+ years old a nd patients) (1 - 1-dose 75+ series) 2056 Insurance [employer] Care Teams Radial Arm Saw Operator Relationship Specialty Start Date End Date Jo Thakur [address] [place] [address] [place] [address] PCP - General Internal Medicine 10/22/23
--- OUTSIDE RECORDS SUMMARY | 2025-05-28 11:01 | XMS_ITS | Patient Health Record ---
Author Organization [facility] Address [address] [place] [address] Care Team Providers Care Farmworker Chicken [employer] Name Role Phone NONE, NONE Primary Care Provider Mario Prather Unavailable [phone] Allergies Allergen (clinical drug ingredient) Drug/Non Drug [...] 1 capsule Orally BID --with breakfast and supper; Duration: 30 day(s) 01/11/2018 Active Omeprazole 20 MG [...] Problem Status W/U Status Risk Notes Problem Epigastric pain (60745943) Epigastric abdominal pain (R10.13) Active confirmed Problem Epigastric pain (30519432) Epigastric pain (R10.13) Active confirmed Problem Elevated liver enzymes level (991728309) Elevated liver enzymes (R74.8) Active confirmed Problem Gastroesophageal reflux disease (410774513) Gastroesophageal reflux disease, esophagitis presence not specified (K21.9) Active confirmed Plan Of Treatment Pending Test Test Name Order Date SMOOTH MUSCLE ANTIBODIES 01/11/2018 NUC HIDA SCAN 02/16/2018 Future Test Test Name Order Date UPPER GI ENDOSCOPY 01/11/2018 Insurance Providers Payer Name Payer Address Payer Phone Subscriber Number Group Number Insured Name Patient Relationship to Insured Coverage Start Date Coverage End Date [facility] [address] [address] [place], [place] [id number] [phone] [id number] FATUMA GONZALEZ Self - patient is the insured Medical (General) History Medical History History ICD Code Denies [place],DM,CVA,Lung disease,renal dise ase EGD [place] [address] Landa- --minimal changes of reflux, gastritis with H.pylori--does not recall being treated for the H.pylori Colonoscopy in 2011 alessandra Landa--ne gative Depression 2 negative GB U/S's except for a contrac jayne GB --no stones Surgical History Surgery Date(Month/Year) Partial hysterectomy
--- OUTSIDE RECORDS SUMMARY | 2025-05-28 11:01 | XMS_ITS | Clinical Summary ---
Author Organization [address] [facility] Address [address] [place] [address] Phone Care Team Providers Care Media Planner / Buyer Name Role Phone Francesco Bell MD Primary Care Provider [phone] Allergies Active Allergy Reactions Criticality Noted Date Comments Diphtheria,Pertussis (Acellular),Tetanus Vaccine Nausea Only,Pain 03/10/2024 Gabapentin Nausea And Vomiting,Rash 03/10/2024 Morphine Nausea And Vomiting, Nausea Only 03/10/2024 Sulfa (Sulfonamide Antibiotics) Hives 03/10/2024 Tramadol Nausea And Vomiting,Rash 03/10/2024 Medications Ventolin HFA 90 mcg/actuation inhaler Inhale 1 puff by mouth every 6 hours as needed. Active Symbicort 160-4.5 mcg/actuation inhaler INHALE DANDO DOS SOPLIDOS BY MOUTH 2 TIMES A DAY FOR 30 DAYS Active ipratropium-alb uteroL (DUONEB) 0.5-2.5 mg/3 mL nebulizer solution INHALE 3 ML BY NEBULIZATION EVERY 6 HOURS NEEDED FOR FOR WHEEZING Active predniSONE (DELTASONE) 10 mg tablet Take 1 tablet (10 mg total) by mouth. Active Spiriva Respimat 2.5 mcg/actuation inhalation spray INHALE DANDO DOS SOPLIDOS POR V A ORAL EVERY MORNING FOR 30 DAYS Active Encounters Date Type Department Care Team Description 05/19/2025 2:30 PM EDT Consult Pulmonology - [facility] [address] [place] [address] Lissa Patel MD Shortness of breath (Primary Dx); Chronic cough from Last 3 Months Social History Tobacco Use Types Packs/Day Years Used Date Smoking Tobacco: Never Assessed Comments Unknown Sex and Gender Information Value Date Recorded Sex Assigned at Not on file Legal Sex Female 2:16 AM EST Gender Identity Not on file Sexual Orientation Not on file Last Filed Vital Signs Vital Sign Reading Time Taken Comments Blood Pressure 115/76 05/19/2025 2:17 PM EDT Pulse 80 05/19/2025 2:17 PM EDT Temperature 36.9 C (98.4 F) 05/19/2025 2:17 PM EDT Respiratory Rate - - Oxygen Saturation 98% 05/19/2025 2:17 PM EDT Inhaled Oxygen Concentration - - Weight 83.1 kg (183 lb 3.2 oz) 05/19/2025 2:17 P M EDT Height 165.1 cm (5' 5 ) 05/19/2025 2:17 PM EDT Body Mass Index 30.49 05/19/2025 2:17 PM EDT Plan of Treatment Upcoming Encounters Date Type Department Care Team (Late st Contact Info) Description 06/05/2025 8:30 AM EST Appointment [facility] Pulmonary [address] [place] [address] Health Maintenance Due Date Last Done Comments Breast Cancer Screening 1981 DTaP,Tdap,and Td Vaccines (1 - Tdap) 2000 Hepatitis B Vaccines (1 of 3 - 19+ 3-dose series) 2000 Pneumococcal Vaccine: Pediat rics (0 to 5 Years) and At-Risk Patients (6 to 49 Years) (1 of 2 - PCV) 2000 Cervical Cancer Screening: P ap Smear 2002 HPV Vaccines (1 - 3-dose SCD M series) 2008 Depression Screening 07/30/2024 COVID-19 Vaccine ( - 2023-2 5 season) 2025 Influenza Vaccine (#1) 2025 HIV Screening 04/06/2025 Hepatitis C Screening 04/06/2025 Social Influencers of Health Screening 04/06/2025 RSV Immunization Adult Patie nts (1 - 1-dose 75+ series) 2056 HIB Vaccines Aged Out No longer eligi ble based on patient's age to complete this topic Hepatitis A Vaccines Aged Out No long er eligible based on patient's age to complete this topic IPV Vaccines Aged Out No longer eligi ble based on patient's age to complete this topic MMR Vaccines Aged Out No longer eligi ble based on patient's age to complete this topic Meningococcal ACWY Vaccine Aged Out N o longer eligible based on patient's age to complete this topic Meningococcal B Vaccine Aged Out No l onger eligible based on patient's age to complete this topic RSV Immunization Patients Un kenneth 20 months Aged Out No longer eligible b ased on patient's age to complete this topic Varicella Vaccines Aged Out No longer eligible based on patient's age to complete this topic [place] [place] [address] [employer] PLAN MEDICAID - [place] Care Teams Media Planner / Buyer Relationship Specialty Start Date End Date Francesco Bell MD [address] [place] [address] PCP - General Internal Medicine 11/28/11
--- OUTSIDE RECORDS SUMMARY | 2025-05-28 11:01 | XMS_ITS | Clinical Summary ---
Author Organization [facility] Address [address] [facility] [address] [place] [address] Phone Care Team Providers Care Environmental Service Aide Name Role Phone Jarett Porras MD Primary Care Provider [phone] Allergies No known active allergies Medications cetirizine [...] 2 - PCV) 01/14/2020 01/13/2019 MAMMOGRAM 2021 INFLUENZA VACCINE (#1) 2025 05/10/2018 COVID-19 VACCINE (3 - 2024-2 6 season) 2025 03/05/2021, 02/02/2021 Adult Td,Tdap Booster 05/21/2027 05/21/2017 [...] topic Medical Devices Not on file Insurance [facility] ACO ACO ACO [employer] [place] [address] [address] [place] [address] ACO Care Teams Environmental Service Aide Relationship Specialty Start Date End Date Jarett Porras MD [email or web address] PCP - General Internal Medicine 08/21/19 Additional Source Comments The information contained in this document represents components of the legal health record. It is not the complete legal health record.[facility]
== END 2025-05-28 10:01 | disposition home or self-care (01) ==
LOC: HO.HPS 09:33
PROVIDERS: PCP Internal Medicine; Visit Provider Internal Medicine Pulmonary Disease
DX: J45.50 Severe persistent asthma, uncomplicated (principal); Z91.09 Other allergy status, other than to drugs and biological substances
CPT/HCPCS: 99214

== ENCOUNTER → 2025-05-28 09:32 | Outpatient (BNVA) | payer OTHER, SELFPAY | PROVIDERS: PCP Internal Medicine; Visit Provider Internal Medicine Pulmonary Disease | DX: J45.50 Severe persistent asthma, uncomplicated (principal); Z91.09 Other allergy status, other than to drugs and biological substances | CPT/HCPCS: 99212 ==